=== PATIENT | male | born 1990 | race Caucasian/White ===

== ENCOUNTER 2021-01-29 09:53 | Emergency (ER) | payer OTHER, SELFPAY ==
[2021-01-29 10:08] VITALS: BP 106/63; PULSE 99; RESP 18; TEMP 37.1; O2SAT 95; BMI 29.2
[2021-01-29 10:57] LABS: COVID-19 Test Negative (Negative)
--- NOTE | 2021-01-29 12:06 | ED.GENADULT ---
HPI - General Adult General Chief complaint: General Medical <[facility] Last Filed: 01/29/21 12:08> Stated complaint: covid symptoms <[facility] Last Filed: 01/29/21 12:08> Time Seen by Provider: 01/29/21 11:09 <[facility] Last Filed: 01/29/21 12:08> Source: patient <[facility] Last Filed: 01/29/21 12:08> Mode of arrival: ambulatory <[facility] Last Filed: 01/29/21 12:08> Limitations: no limitations <[facility] Last Filed: 01/29/21 12:08> History of Present Illness HPI narrative: 30-year-old male previously healthy here with complaints of fever, diarrhea, fatigue since yesterday. All his children at home have the same symptoms. No abdominal pain, vomiting, chest pain, shortness of breath, cough, headache, neck pain <[facility] Last Filed: 01/29/21 12:08> Related Data Home medications: Previous Rx's Medication Instructions Recorded ondansetron 4 mg PO Q6H PRN #10 tab 01/29/21 <[facility] Last Filed: 01/29/21 12:08> Allergies/adverse reactions: Allergies Allergy/AdvReac Type Severity Reaction Status Date / Time No Known Allergies Allergy Unverified 05/23/20 16:26 [No Known Allergies*] <[facility] Last Filed: 01/29/21 12:08> Review of Systems Review of Systems: Yes all other systems are reviewed and are negative <[facility] Last Filed: 01/29/21 12:08> Constitutional: Constitutional: Reports no additional constitutional complaints, Denies body ache(s), Denies chills, Reports fatigue, Reports fever(s) (Subjective), Denies headache(s) and Denies weakness <[facility] Last Filed: 01/29/21 12:08> Eyes: Eyes: Reports no additional eye complaints and Denies change in vision <Jodi Cavanaugh NP - Last Filed: 01/29/21 12:08> ENT: Reports system reviewed and no additional complaints, except as documented, Denies dizziness, Denies headache(s), Denies nasal congestion, Denies nasal discharge and Denies neck pain <Jodi Cavanaugh EXTRUDER OPERATOR HELPER - Last Filed: 01/29/21 12:08> Cardiovascular: Cardiovascular: Reports no additional cardiovascular complaints, Denies chest pain, Denies leg edema and Denies dyspnea <Jodi Cavanaugh EXTRUDER OPERATOR HELPER - Last Filed: 01/29/21 12:08> Respiratory: Respiratory: Reports no additional respiratory complaints, Denies cough and Denies dyspnea <Jodi Cavanaugh NP - Last Filed: 01/29/21 12:08> Gastrointestinal: Gastrointestinal: Reports no additional gastrointestinal complaints, Denies abdominal pain, Reports diarrhea, Denies nausea and Denies vomiting <Jodi Cavanaugh NP - Last Filed: 01/29/21 12:08> Genitourinary: Genitourinary: Denies urinary incontinence <Jodi Cavanaugh EXTRUDER OPERATOR HELPER - Last Filed: 01/29/21 12:08> Musculoskeletal: Musculoskeletal: Reports no additional musculoskeletal complaints, Denies back pain, Denies arthralgias, Denies joint swelling, Denies neck pain, Denies numbness and Denies tingling <Jodi Cavanaugh EXTRUDER OPERATOR HELPER - Last Filed: 01/29/21 12:08> Integumentary/Breasts: Skin/Breast: Reports system reviewed and no additional complaints, except as docu and Denies rash <Jodi Cavanaugh EXTRUDER OPERATOR HELPER - Last Filed: 01/29/21 12:08> Neurologic: Reports system reviewed and no additional complaints, except as documented, Denies Abnormal speech present, Denies dizziness, Denies headache(s), Denies numbness, Denies tingling and Denies weakness <Jodi Cavanaugh EXTRUDER OPERATOR HELPER - Last Filed: 01/29/21 12:08> Endocrine: Endocrine: Reports fatigue <Jodi Cavanaugh NP - Last Filed: 01/29/21 12:08> PMFSH Past Medical History Attestation statement: The following information was validated with the patient. <Jodi Cavanaugh NP - Last Filed: 01/29/21 12:08> Source: old records reviewed and nursing notes reviewed <Jodi Cavanaugh NP - Last Filed: 01/29/21 12:08> Medical History: Medical History Asthma Diabetes Migraine <Jodi Cavanaugh NP - Last Filed: 01/29/21 12:08> Social History Social History: Social History Advance Directives: Yes Advance Directives Information Provided: Yes Advance Directives on File: No <Jodi Cavanaugh NP - Last Filed: 01/29/21 12:08> Physical Exam Vital Signs: Vital Signs: Last Vital Signs Temp 98.7 F 01/29/21 10:08 Pulse 99 01/29/21 10:08 Resp 18 01/29/21 10:08 BP 106/63 01/29/21 10:08 Pulse Ox 95 01/29/21 10:08 Body Mass Index 29.2 <Jodi Cavanaugh NP - Last Filed: 01/29/21 12:08> Vital Signs: Last Vital Signs Temp 98.7 F 01/29/21 10:08 Pulse 99 01/29/21 10:08 Resp 18 01/29/21 10:08 BP 106/63 01/29/21 10:08 Pulse Ox 95 01/29/21 10:08 Body Mass Index 29.2 <Chepe Garcia MD - Last Filed: 02/21/21 15:11> Const: General: cooperative, healthy appearing, comfortable and no acute distress <Jodi Cavanaugh NP - Last Filed: 01/29/21 12:08> Orientation/consciousness: patient oriented x3 <Jodi Cavanaugh NP - Last Filed: 01/29/21 12:08> Limitations: no limitations <Jodi Cavanaugh NP - Last Filed: 01/29/21 12:08> HENMT: Head: Yes normal to inspection <Jodi Cavanaugh NP - Last Filed: 01/29/21 12:08> Ears: hearing grossly normal bilaterally <Jodi Cavanaugh NP - Last Filed: 01/29/21 12:08> General nose exam: Normal external nose present <Jodi Cavanaugh NP - Last Filed: 01/29/21 12:08> Face and sinus: Yes normal facial exam <Jodi Cavanaugh NP - Last Filed: 01/29/21 12:08> Mouth: Normal oral and palatal mucosa present <Jodi Cavanaugh EXTRUDER OPERATOR HELPER - Last Filed: 01/29/21 12:08> Throat: Yes posterior oropharynx normal <Jodi Cavanaugh NP - Last Filed: 01/29/21 12:08> Eyes: General: appearance normal, both eyes and all related structures <Jodi Cavanaugh NP - Last Filed: 01/29/21 12:08> Pupils: Equal, round and reactive pupils present <Jodi Cavanaugh NP - Last Filed: 01/29/21 12:08> Neck: Neck: Yes normal visual inspection <Jodi Cavanaugh NP - Last Filed: 01/29/21 12:08> Chest: Chest palpation & inspection: normal inspection of the chest <Jodi Cavanaugh NP - Last Filed: 01/29/21 12:08> Resp: Effort & Inspection: normal respiratory effort <Jodi Cavanaugh NP - Last Filed: 01/29/21 12:08> Auscultation: clear to auscultation bilaterally <Jodi Cavanaugh NP - Last Filed: 01/29/21 12:08> Cardio: Rate: regular rate <Jodi Cavanaugh NP - Last Filed: 01/29/21 12:08> Rhythm: regular rhythm <Jodi Cavanaugh NP - Last Filed: 01/29/21 12:08> Peripheral pulses: Peripheral pulses 2+ throughout <Jodi Cavanaugh NP - Last Filed: 01/29/21 12:08> GI: Inspection: Yes normal to inspection <Jodi Cavanaugh NP - Last Filed: 01/29/21 12:08> Palpation (GI): Soft to palpation and nontender <Jodi Cavanaugh NP - Last Filed: 01/29/21 12:08> Auscultation: normal bowel sounds <Jodi Cavanaugh NP - Last Filed: 01/29/21 12:08> Back/Spine/Pelvis: Thoracic/Lumbar Spine: thoracic and lumbar spine normal to inspection <Jodi Cavanaugh NP - Last Filed: 01/29/21 12:08> Skin: General skin exam: no rashes or lesions noted <Jodi Cavanaugh NP - Last Filed: 01/29/21 12:08> Neuro: General: patient oriented x3, no focal motor deficits and normal sensation to monofilament <Jodi Cavanaugh NP - Last Filed: 01/29/21 12:08> Cranial nerves: Yes Equal, round and reactive pupils present <Jodi Cavanaugh NP - Last Filed: 01/29/21 12:08> Cognition (Neuro): normal cognition <Jodi Cavanaugh NP - Last Filed: 01/29/21 12:08> Speech: No Abnormal speech present <Jodi Cavanaugh NP - Last Filed: 01/29/21 12:08> Gait exam (Neuro): Normal gait present <Jodi Cavanaugh NP - Last Filed: 01/29/21 12:08> Motor exam (neuro): 5/5 motor strength present throughout <Jodi Cavanaugh NP - Last Filed: 01/29/21 12:08> Extrem: General: Yes normal to inspection <Jodi Cavanaugh NP - Last Filed: 01/29/21 12:08> Course Course Course Narrative: 30-year-old male here with flu-like symptoms x2 days. Children at home with same symptoms. Will check COVID swab. COVID swab negative. Well-appearing. Hemodynamically stable. Afebrile here. No abdominal pain on exam. Reviewed worrisome signs and symptoms of when to return to the emergency department. Comfortable discharge home. <Jodi Cavanaugh NP - Last Filed: 01/29/21 12:08> I have reviewed the chart <Chepe Garcia MD - Last Filed: 02/21/21 15:11> Medical Decision Making Medical Records Medical records reviewed: Yes I reviewed the patient's medical records. <Jodi Cavanaugh NP - Last Filed: 01/29/21 12:08> Lab Data Lab results reviewed: Yes I reviewed the patient's lab results. <Jodi Cavanaugh NP - Last Filed: 01/29/21 12:08> Labs: Lab Results 01/29/21 Range/Units 10:27 COVID-19 ([facility]) Negative (Negative) COVID-19 Clin Com See Note <Jodi Cavanaugh NP - Last Filed: 01/29/21 12:08> Lab Results 01/29/21 Range/Units 10:27 COVID-19 ([facility]) Negative (Negative) COVID-19 Clin Com See Note <Chepe Garcia MD - Last Filed: 02/21/21 15:11> Discharge Plan Discharge Clinical Impression: Viral syndrome <Jodi Cavanaugh NP - Last Filed: 01/29/21 12:08> Patient Disposition: Home, Self-Care <Jodi Cavanaugh NP - Last Filed: 01/29/21 12:08> Instructions: Viral Syndrome (ED) <Jodi Cavanaugh NP - Last Filed: 01/29/21 12:08> Additional Instructions: Your test today for COVID-19 was negative. You should continue to self quarantine if you are having symptoms of COVID-19 and should retest in several days. Motrin or Tylenol for pain or fever Increase fluids, rest No school until symptoms are resolved <Jodi Cavanaugh NP - Last Filed: 01/29/21 12:08> Prescriptions: New ondansetron 4 mg tablet,disintegrating 4 mg PO Q6H PRN (Reason: nausea and vomiting) Qty: 10 RF: 0 <Jodi Cavanaugh NP - Last Filed: 01/29/21 12:08> Stand Alone Forms: Work/School Release <Jodi Cavanaugh NP - Last Filed: 01/29/21 12:08> Interventions: ED Discharge Assessment Last Done: 01/29/21 12:36 <Jodi Cavanaugh NP - Last Filed: 01/29/21 12:08> Discharge Date/Time: 01/29/21 12:39 <Jodi Cavanaugh NP - Last Filed: 01/29/21 12:08> Print Language: Gambian <Jodi Cavanaugh NP - Last Filed: 01/29/21 12:08>
== END 2021-01-29 12:39 | disposition home or self-care (01) ==
PROVIDERS: Nurse Practitioner Family; Emergency Provider Emergency Medicine
DX: B34.9 Viral infection, unspecified (principal); R50.9 Fever, unspecified; Z20.822 Contact with and (suspected) exposure to COVID-19; Z79.899 Other long term (current) drug therapy
CPT/HCPCS: 36415; 87635; 99283

== ENCOUNTER 2021-08-10 23:00 | Emergency (ER) | payer MEDICAID, SELFPAY ==
[2021-08-10 23:19] VITALS: BP 139/84; PULSE 99; RESP 16; TEMP 36.2; O2SAT 97; BMI 27.3
--- NOTE | 2021-08-10 23:38 | ED.GENADULT ---
HPI - General Adult General Chief complaint: General Medical Stated complaint: flu like symptoms Time Seen by Provider: 08/10/21 23:38 Source: patient Mode of arrival: ambulatory Limitations: no limitations History of Present Illness HPI narrative: Patient comes emergency room complaining of body aches, sore throat. Patient has 2 younger children tested positive for COVID-19 2 days ago. Now his and older daughter have the same symptoms as well. Related Data Previous Rx's Medication Instructions Recorded ondansetron 4 mg disintegrating 4 mg PO Q6H PRN #10 tab 01/29/21 tablet acetaminophen 650 mg 650 mg PO Q8H PRN #30 tab 08/11/21 tablet,extended release Allergies Allergy/AdvReac Type Severity Reaction Status Date / Time No Known Allergies Allergy Verified 08/10/21 23:22 [No Known Allergies*] Review of Systems Review of Systems: Constitutional : No Weight loss, No Fever, No Chills, No Night Sweats, bleeding of fatigue and generalized malaise ENT/Mouth : No Hearing loss, No Ear Pain, No Nasal Congestion, No Sinus Pain, No Hoarseness, complaining of mild sore throat, No Rhinorrhea, No Swallowing Difficulty Eyes: No Eye Pain, No Swelling, No Redness, No Foreign Body, No Discharge, No Vision Changes Cardiovascular : No Chest Pain, No SOB, No Dyspnea on Exertion, No Orthopnea, No Edema, No Palpitations Respiratory : No Cough, No Sputum, No Wheezing, No Smoke Exposure, No Dyspnea Gastrointestinal : No Nausea, No Vomiting, No Diarrhea, No Constipation, No abdominal Pain, No Hematochezia, No Melena Genitourinary : no irregular bleeding, No Dysuria, No Urinary Frequency, No Hematuria, No Urinary Incontinence, No Urgency, No Flank Pain, No Urinary Flow Changes, No Hesitancy Musculoskeletal : No joint pain, No Myalgias, No Joint Swelling Skin : No Skin Lesions, No rash Neuro : No Weakness, No Numbness, No Paresthesias, No Loss of Consciousness, No Dizziness, No Headache Psych : No Anxiety/Panic, No Depression, No SI/HI/AH/VH, No Social Issues, Heme/Lymph: No Bruising, No Bleeding,No Lymphadenopathy Endocrine : No Polyuria, No Polydipsia, No Temperature Intolerance PMFSH Past Medical History Medical History Asthma Diabetes Migraine Social History Social History Advance Directives: No Advance Directives Information Provided: Yes Physical Exam Vital Signs: Vital Signs: Last Vital Signs Temp 97.1 F 08/10/21 23:19 Pulse 99 08/10/21 23:19 Resp 16 08/10/21 23:19 BP 139/84 08/10/21 23:19 Pulse Ox 97 08/10/21 23:19 BMI result Body Mass Index 27.3 Const: Other: Appearance: Alert. Oriented X3. No acute distress. Eyes: Pupils equal, round and reactive to light. ENT: Pharynx normal. Neck: Normal inspection. Neck supple. No lymph nodes noted. No crepitus CVS: Normal heart rate and rhythm. Pulses normal. Normal S1 and S2 Respiratory: No respiratory distress. Breath sounds normal. No Wheezing. No rales Abdomen: Soft and nontender. No rigidity. No distention. good BS x4 Skin: Skin warm and dry. Normal skin color. Normal skin turgor. Extremities: No lower extremity edema.No Lacerations. No Rash Neuro: Oriented X 3. No motor deficit. No sensory deficit. Moving all extermities. No slurred speech. Course Course Course Narrative: Patient's COVID test is negative. However, his younger kids to have in-home. It may be a false negative. Medical Decision Making Lab Data Labs: Lab Results 08/10/21 Range/Units 23:32 COVID-19 ([facility]) Negative (Negative) COVID-19 Clin Com See Note Discharge Plan Discharge Clinical Impression: Acute upper respiratory infection, Acute viral syndrome Patient Disposition: Home, Self-Care Instructions: Viral Syndrome (ED) Additional Instructions: It is very likely that you may have COVID-19. Although your test was negative, your children her positive. Please follow-up with your primary care physician tomorrow. If you have any worsening or new symptoms, please return to the emergency room or call 911 Prescriptions: New acetaminophen 650 mg tablet extended release 650 mg PO Q8H PRN (Reason: fever or pain) Qty: 30 RF: 0 No Action ondansetron 4 mg tablet,disintegrating 4 mg PO Q6H PRN (Reason: nausea and vomiting) Qty: 10 RF: 0
[2021-08-10 23:56] LABS: COVID-19 Test Negative (Negative); IDNOW Serial# 9DD0AD1C
[2021-08-11] MEDS: Ibuprofen 600 MG TABLET PO (00:47)
== END 2021-08-11 00:59 | disposition home or self-care (01) ==
PROVIDERS: Emergency Provider Emergency Medicine; PCP Internal Medicine
DX: J06.9 Acute upper respiratory infection, unspecified (principal); B34.9 Viral infection, unspecified; E11.9 Type 2 diabetes mellitus without complications; J45.909 Unspecified asthma, uncomplicated; Z20.822 Contact with and (suspected) exposure to COVID-19
CPT/HCPCS: 36415; 87635; 99283

== ENCOUNTER 2021-08-29 22:04 | Emergency (ER) | payer MEDICAID, SELFPAY ==
--- NOTE | ~2021-08-29 | XR_ITS ---
EXAMINATION: XR CHEST CLINICAL INFORMATION: Shortness of breath COMPARISON: None TECHNIQUE: Frontal view of the chest was obtained. FINDINGS: The lungs are well expanded. There is no focal consolidation, edema, or effusion. No pneumothorax. The cardiomediastinal silhouette is within normal limits. No acute osseous abnormality. XR/XR chest 1V IMPRESSION: Clear lungs.
[2021-08-30 00:25] VITALS: BP 140/70; PULSE 78; RESP 16; TEMP 36.9; O2SAT 97; BMI 28.5
--- NOTE | 2021-08-30 00:42 | ED.GENADULT ---
HPI - General Adult General Chief complaint: General Medical Stated complaint: sob,headache Time Seen by Provider: 08/30/21 00:39 Source: patient Mode of arrival: ambulatory Limitations: no limitations History of Present Illness HPI narrative: 30-year-old male with past medical history of asthma presents with body pain and cough with positive COVID-19 contacts. Patient is requested COVID-19 testing. Onset (ago): day(s) Location: chest Radiation: non-radiation Severity: mild Relieving factors: none Exacerbating factors: movement Associated symptoms: cough and headaches Treatments prior to arrival: none Related Data Previous Rx's Medication Instructions Recorded ondansetron 4 mg disintegrating 4 mg PO Q6H PRN #10 tab 01/29/21 tablet acetaminophen 650 mg 650 mg PO Q8H PRN #30 tab 08/11/21 tablet,extended release albuterol sulfate 90 mcg/actuation 2 puff INHALATION Q6H PRN #8.5 g 08/30/21 aerosol inhaler prednisone 20 mg tablet 40 mg PO DAILY 4 Days #8 tab 08/30/21 Allergies Allergy/AdvReac Type Severity Reaction Status Date / Time No Known Allergies Allergy Verified 08/10/21 23:22 [No Known Allergies*] Review of Systems Review of Systems: Constitutional: No Fever, no Chills, positive fatigue, positive Malaise ENT/Mouth: positive sore throat, positive runny nose Eyes: No Discharge Cardiovascular: No Chest Pain, No SOB Respiratory: Positive Cough, No Sputum, No Wheezing, No Smoke Exposure, No Dyspnea Gastrointestinal: No Nausea, No Vomiting, No Diarrhea Genitourinary: no irregular bleeding, No Dysuria, No Urinary Frequency, No Hematuria, No Urinary Incontinence, No Urgency, No Flank Pain, Musculoskeletal: positive Myalgia Skin: No rash Neuro: Positive Headache Yes all other systems are reviewed and are negative PMFSH Past Medical History Attestation statement: The following information was validated with the patient. Source: old records reviewed Medical History Asthma Diabetes Migraine Social History Social History Advance Directives: No Advance Directives Information Provided: Yes Physical Exam Vital Signs: Vital Signs: Last Vital Signs Temp 98.4 F 12/25/21 00:25 Pulse 94 08/30/21 01:14 Resp 16 08/30/21 01:14 BP 132/86 08/30/21 01:10 Pulse Ox 97 08/30/21 01:10 BMI result Body Mass Index 28.5 Appearance: Alert. Oriented X3. No acute distress. Eyes: Pupils equal, round and reactive to light. ENT: Pharynx normal. Moist mucous membranes. Neck: Normal inspection. Neck supple. CVS: Normal heart rate and rhythm. Pulses normal. Respiratory: No respiratory distress. Decreased air flow, inspiratory and expiratory wheezing throughout. Abdomen: Soft and nontender. Skin: Skin warm and dry. Normal skin color. Normal skin turgor. Extremities: No lower extremity edema. Gait well-balanced well coordinated. Neuro: No motor deficit. No sensory deficit. Cranial nerves 2-12 intact. Course Course Course Narrative: 30-year-old male presents with upper respiratory symptoms a history of asthma. Has had COVID-19 contacts. Patient is afebrile appears nontoxic however lung sounds have inspiratory and expiratory wheezing with poor air flow on right side. Patient has not asthma medications several months. Does smoke marijuana twice a week, was smoking in his car prior to emergency room presentation. No prior history of asthma related intubations. Order for hour long neb. IV Solu-Medrol. Lung sounds improved. Plan of care is to discharge home with prednisone, script for albuterol, and referral to pulmonology. Patient embolized understanding and agrees to care discharge Medical Decision Making Differential Diagnosis Differential Diagnosis: COVID-19, influenza, RSV, asthma exacerbation Medical Records Medical records reviewed: Yes I reviewed the patient's medical records. Lab Data Lab results reviewed: Yes I reviewed the patient's lab results. Labs: Lab Results 08/30/21 Range/Units 00:32 COVID-19 ([facility]) Negative (Negative) COVID-19 Clin Com See Note Imaging Data Chest x-ray: Attestation: I personally reviewed and interpreted this imaging study as follows: Radiologist's impression: EXAMINATION: XR CHEST CLINICAL INFORMATION: Shortness of breath COMPARISON: None TECHNIQUE: Frontal view of the chest was obtained. FINDINGS: The lungs are well expanded. There is no focal consolidation, edema, or effusion. No pneumothorax. The cardiomediastinal silhouette is within normal limits. No acute osseous abnormality. XR/XR chest 1V IMPRESSION: Clear lungs. ? Discharge Plan Discharge Clinical Impression: Acute viral syndrome Asthma exacerbation Qualifiers: Asthma severity: moderate Asthma persistence: unspecified Qualified Code(s): J45.901 - Unspecified asthma with (acute) exacerbation Patient Disposition: Home, Self-Care Instructions: Asthma (ED), Viral Syndrome (ED) Additional Instructions: You were evaluated for upper respiratory symptoms. Your COVID 19 test was negative. We treated you for asthma exacerbation. Please use albuterol inhaler 2 puffs every 4-6 hours as needed for shortness of breath. He consider using [id number] cough medications. Please follow-up pulmonology. I referred you to Dr. Akbar. Please call and request an appointment. Please take prednisone 40 mg for the next 4 days. Stop smoking. Thank you for choosing this emergency department for evaluation. Please follow-up with primary care physician as needed. Return to the emergency department for any new, concerning, or worsening symptoms. Prescriptions: New prednisone 20 mg tablet 40 mg PO DAILY 4 Days Qty: 8 RF: 0 albuterol sulfate 90 mcg/actuation HFA aerosol inhaler 2 puff inhalation Q6H PRN (Reason: shortness of breath or wheezing) Qty: 8.5 RF: 0 No Action ondansetron 4 mg tablet,disintegrating 4 mg PO Q6H PRN (Reason: nausea and vomiting) Qty: 10 RF: 0 acetaminophen 650 mg tablet extended release 650 mg PO Q8H PRN (Reason: fever or pain) Qty: 30 RF: 0 Referrals: Willie Akbar MD [Physician] - 2 days (Asthma exacerbation, poor asthma management)
[2021-08-30 01:03] LABS: COVID-19 Test Negative (Negative); IDNOW Serial# 9DD0AD1C
[2021-08-30 01:10] VITALS: BP 132/86; PULSE 93; RESP 14; O2SAT 97
[2021-08-30] MEDS: Albuterol Sulfate 90 MCG 8 GM INHALER 2 PUFF INHALE (01:11)
[2021-08-30] MEDS: methylPREDNISolone Sod Succ 125 MG/2 ML VIAL IVPUSH (01:11)
[2021-08-30] MEDS: Albuterol Sulfate (0.083%) 2.5 MG/3 ML VIAL.NEB 10 MG INHALE (01:11)
[2021-08-30 01:14] VITALS: PULSE 94; RESP 16; O2SAT 97
[2021-08-30 02:24] VITALS: BP 137/81; PULSE 116; RESP 26; O2SAT 96
== END 2021-08-30 02:28 | disposition home or self-care (01) ==
PROVIDERS: Emergency Provider Internal Medicine; PCP Internal Medicine
DX: J45.901 Unspecified asthma with (acute) exacerbation (principal); B34.9 Viral infection, unspecified; E11.9 Type 2 diabetes mellitus without complications; Z20.822 Contact with and (suspected) exposure to COVID-19
CPT/HCPCS: 36415; 71045; 87635; 94640; 94644; 99284; J2930

== ENCOUNTER 2021-09-04 21:58 | Emergency (ER) | payer MEDICAID, SELFPAY ==
--- NOTE | 2021-09-04 22:39 | PC.NURSE ---
pt not in the waiting room at this time.
[2021-09-04 22:45] VITALS: BP 138/73; PULSE 79; RESP 16; TEMP 36.8; O2SAT 96; BMI 28.5
--- NOTE | 2021-09-05 00:18 | ED.SKABFB ---
HPI - Skin/Abscess/Foreign Bdy General Chief complaint: Skin/Abscess/Foreign Body Stated complaint: Abscess Time Seen by Provider: 09/05/21 00:06 Source: patient History of Present Illness HPI narrative: This is a 30-year-old male who about 5-6 days ago noted soreness and swelling inside his left nostril. Patient noted some redness on the outside his nose. He has tried to take a sewing needle and drain the swollen area from inside his nose, and has seen some pus drainage. He denies any fever. Came in tonight because he wanted to see if the abscess could be drained more definitively. He denies any headache. He notes he does have history of asthma and diabetes Related Data Previous Rx's Medication Instructions Recorded ondansetron 4 mg disintegrating 4 mg PO Q6H PRN #10 tab 01/29/21 tablet acetaminophen 650 mg 650 mg PO Q8H PRN #30 tab 08/11/21 tablet,extended release albuterol sulfate 90 mcg/actuation 2 puff INHALATION Q6H PRN #8.5 g 08/30/21 aerosol inhaler prednisone 20 mg tablet 40 mg PO DAILY 4 Days #8 tab 08/30/21 sulfamethoxazole 800 1 tab PO BID #14 tab 09/05/21 mg-trimethoprim 160 mg tablet (Bactrim DS) Allergies Allergy/AdvReac Type Severity Reaction Status Date / Time No Known Allergies Allergy Verified 08/10/21 23:22 [No Known Allergies*] Review of Systems Constitutional: Constitutional: Denies chills and Denies fever(s) Eyes: Eyes: Reports no additional eye complaints ENT: Comments: swelling and redness to left side of nose left internal nare Cardiovascular: Cardiovascular: Reports no additional cardiovascular complaints Respiratory: Respiratory: Reports no additional respiratory complaints Neurologic: Denies Sensory deficit (Neuro) [facility] [place] Past Medical History Medical History Asthma Diabetes Migraine Social History Social History Advance Directives: No Physical Exam Vital Signs: Vital Signs: Last Vital Signs Temp 98.3 F 09/04/21 22:45 Pulse 79 09/04/21 22:45 Resp 16 09/04/21 22:45 BP 138/73 09/04/21 22:45 Pulse Ox 96 09/04/21 22:45 BMI result Body Mass Index 28.5 Const: General: cooperative, no acute distress and alert Orientation/consciousness: patient oriented x3 HENMT: Other: left nostril with erythema and mild swelling externally, and to the point of the nose. Inside the nostril there is focal swelling on the lateral aspect, with pus draining. No generalized facial swelling or facial cellulitis Head: Yes normal to inspection Eyes: General: appearance normal, both eyes and all related structures Eyelids: Yes eyelids normal Conjunctivae: conjunctivae normal Pupils: Equal, round and reactive pupils present Neck: Neck: Yes normal visual inspection and Yes supple Chest: Chest palpation & inspection: normal inspection of the chest Resp: Effort & Inspection: normal respiratory effort Auscultation: clear to auscultation bilaterally Cardio: Rate: regular rate Rhythm: regular rhythm Heart sounds: S1 normal heart sound present, S2 normal heart sound present, no gallops, no murmurs and no rubs GI: Palpation (GI): Soft to palpation, nontender and Other GI palpation findings present (Non-distended) Auscultation: normal bowel sounds Skin: General skin exam: no rashes or lesions noted Neuro: General: patient oriented x3, no focal motor deficits and CN's II-XI intact bilaterally Cranial nerves: Yes Equal, round and reactive pupils present Cognition (Neuro): normal cognition Motor exam (neuro): 5/5 motor strength present throughout Sensory Exam: No Sensory deficit (Neuro) Extrem: General: Yes normal to inspection and Yes no pedal edema Psych: Appearance: grossly normal Affect: normal affect MDM - Skin/Abscess/Foreign Bdy MDM Narrative Medical decision making narrative: patient with an abscessed inside his left nostril which is already draining. The abscess was opened further with a single Grady of an 11 blade, though the patient did tolerate more than a brief poke with a scalpel. Further pus was expressed. Given that this abscess has already been draining, do not believe an extensive painful procedure to try to open it up further as necessary. Patient is being started on Bactrim and is advised to use warm compresses, gently tried a squeeze out additional pus 3 or 4 times a day Discharge Plan Discharge Clinical Impression: Abscess of external nose Patient Disposition: Home, Self-Care Instructions: Abscess (ED) Additional Instructions: apply warm compresses for 15 minute to the left side of the nose every 3-4 hours while awake, and gently tried to apply pressure to expressed any pus from the abscess cavity. Take antibiotics as prescribed. Use ibuprofen for pain. Return for any worsened symptoms such as increased redness or swelling of the nose, fever Prescriptions: New sulfamethoxazole-trimethoprim [Bactrim DS] 800-160 mg tablet 1 tab PO BID Qty: 14 RF: 0 No Action ondansetron 4 mg tablet,disintegrating 4 mg PO Q6H PRN (Reason: nausea and vomiting) Qty: 10 RF: 0 acetaminophen 650 mg tablet extended release 650 mg PO Q8H PRN (Reason: fever or pain) Qty: 30 RF: 0 prednisone 20 mg tablet 40 mg PO DAILY 4 Days Qty: 8 RF: 0 albuterol sulfate 90 mcg/actuation HFA aerosol inhaler 2 puff inhalation Q6H PRN (Reason: shortness of breath or wheezing) Qty: 8.5 RF: 0
[2021-09-05] MEDS: Sulfamethox/Trimeth 800/160 TABLET 1 TAB PO (00:57)
[2021-09-05] MEDS: Ibuprofen 600 MG TABLET PO (00:57)
== END 2021-09-05 01:00 | disposition home or self-care (01) ==
PROVIDERS: Emergency Provider Emergency Medicine; PCP Internal Medicine
DX: J34.0 Abscess, furuncle and carbuncle of nose (principal); Z79.899 Other long term (current) drug therapy
CPT/HCPCS: 10060; 99283

== ENCOUNTER 2021-09-17 12:55 | Emergency (ER) | payer MEDICAID, SELFPAY ==
--- NOTE | ~2021-09-17 | US_ITS ---
EXAMINATION: US VENOUS ULTRASOUND WITH DOPPLER LOWER EXTREMITY, LEFT CLINICAL INFORMATION: Induration with question of abscess versus DVT COMPARISON: None TECHNIQUE: Ultrasound of the deep veins is performed from the hip to the calf with compression sonography and color and pulse Doppler assessment. Spectral analysis with color-flow imaging is performed. FINDINGS: There is normal venous compression and respiratory variation and augmented flow. The visualized common femoral vein, superficial femoral vein, profunda femoral vein, popliteal vein, and the trifurcation region shows no evidence of deep venous thrombosis. There is no significant popliteal fossa cyst. Of note, in the calf, there is a complex subcutaneous mass/complex fluid collection measuring 1.7 x 0.7 x 1.8 cm which could represent a small abscess. This is not a typical location of Church's cyst. Multiple prominent normal-appearing left groin nodes are present with large fatty jf. If the patient's symptoms persist and DVT is still suspected, followup ultrasound in 5 days 7 days might be of value to exclude proximal propagation from a non-visualized calf vein. US/US venous duplex LE LT IMPRESSION: No DVT demonstrated in the left lower extremity. Small subcutaneous probable abscess.
[2021-09-17 13:33] VITALS: BP 124/78; PULSE 90; RESP 19; TEMP 36.6; O2SAT 97; BMI 28.5
--- NOTE | 2021-09-17 18:41 | ED.GENADULT ---
HPI - General Adult General Chief complaint: Wound/Laceration Stated complaint: L leg abscess Time Seen by Provider: 09/17/21 18:21 Source: patient Mode of arrival: ambulatory Limitations: no limitations History of Present Illness HPI narrative: Patient presents to the ED for left calf pain with redness that he noticed this morning. patient states he went to sleep last night and during sleep he felt a sting on his left calf and thinks it maybe the point of a goose feather of his sofa. Patient area of calf is red with induration and is painful Related Data Previous Rx's Medication Instructions Recorded ondansetron 4 mg disintegrating 4 mg PO Q6H PRN #10 tab 01/29/21 tablet acetaminophen 650 mg 650 mg PO Q8H PRN #30 tab 08/11/21 tablet,extended release albuterol sulfate 90 mcg/actuation 2 puff INHALATION Q6H PRN #8.5 g 08/30/21 aerosol inhaler prednisone 20 mg tablet 40 mg PO DAILY 4 Days #8 tab 08/30/21 sulfamethoxazole 800 1 tab PO BID #14 tab 09/05/21 mg-trimethoprim 160 mg tablet (Bactrim DS) cephalexin 500 mg capsule 500 mg PO QID 7 Days #28 cap 09/17/21 doxycycline hyclate 100 mg capsule 100 mg PO BID 7 Days #14 cap 09/17/21 naproxen 500 mg tablet 500 mg PO BID PRN 10 Days #20 tab 09/17/21 Allergies Allergy/AdvReac Type Severity Reaction Status Date / Time No Known Allergies Allergy Verified 08/10/21 23:22 [No Known Allergies*] Review of Systems Review of Systems: left calf pain with redness/pain Yes all other systems are reviewed and are negative PMFSH Past Medical History Medical History Asthma Diabetes Migraine Social History Social History Advance Directives: No Advance Directives Information Provided: No Physical Exam Vital Signs: Vital Signs: Last Vital Signs Temp 98 F 09/17/21 13:33 Pulse 90 09/17/21 13:33 Resp 19 09/17/21 13:33 BP 124/78 09/17/21 13:33 Pulse Ox 97 09/17/21 13:33 BMI result Body Mass Index 28.5 Const: General: cooperative, healthy appearing, comfortable, no acute distress, well developed, alert, awake and Physically active Orientation/consciousness: patient oriented x3 HENMT: Head: Yes normal to inspection, Yes No palpable skull fracture present, Yes normocephalic, Yes atraumatic and Yes abrasion Eyes: General: appearance normal, both eyes and all related structures Neck: Neck: Yes normal visual inspection, Yes full ROM, Yes no lymphadenopathy, Yes no meningeal signs, Yes trachea midline, Yes supple, No anterior neck swelling and No tender Chest: Chest palpation & inspection: normal inspection of the chest and normal palpation of entire chest wall Resp: Effort & Inspection: normal respiratory effort and able to speak in complete sentences Auscultation: clear to auscultation bilaterally Cardio: Jugular venous distension: no JVD Heart sounds: S1 normal heart sound present and S2 normal heart sound present GI: Inspection: Yes normal to inspection and No abdominal wall ecchymosis Palpation (GI): Soft to palpation, not firm, nontender, no guarding and not rigid : General: No CVA tenderness and Yes no CVA tenderness Back/Spine/Pelvis: Back: no CVA tenderness, No CVA tenderness and No back tenderness Skin: Other: celllulitis Neuro: General: patient oriented x3, gait normal, no meningeal signs and CN's II-XI intact bilaterally Cranial nerves: Yes CN's II-XII intact bilaterally Extrem: Other: Pedal pulses/popliteal pulses intact. Negative for red streaks. Motor/neuro/vascular exam of lower extremity intact. Psych: Appearance: grossly normal, well kempt and not disheveled Course Course Course Narrative: Bedside ultrasound negative for any pus collection and more shows cobblestone for cellulitis, but will order of ultrasound to rule out DVT and abscess. Reevaluation(s) Reevaluation #1: Sign out to STEPHANIE Damon. Will prepare discharge papers with antibiotics Time: 19:10 Medical Decision Making MDM Narrative Medical decision making narrative: Cellulitis Discharge Plan Discharge Clinical Impression: Cellulitis Patient Disposition: Home, Self-Care Instructions: Cellulitis (ED), Warm Compress or Soak (ED) Additional Instructions: Regrese al servicio de urgencias si empeora la hinchaz?n, el enrojecimiento, la secreci?n de pus, el dolor, la elodia amie, la decoloraci?n michael azulada de los dedos de los pies, la fiebre, los escalofr?os, el dolor tor?cico, la dificultad para respirar o cualquier otro s?ntoma preocupante. Por favor, demetrio un seguimiento con el proveedor de atenci?n primaria Prescriptions: New cephalexin 500 mg capsule 500 mg PO QID 7 Days Qty: 28 RF: 0 doxycycline hyclate 100 mg capsule 100 mg PO BID 7 Days Qty: 14 RF: 0 naproxen 500 mg tablet 500 mg PO BID PRN (Reason: pain) 10 Days Qty: 20 RF: 0 No Action ondansetron 4 mg tablet,disintegrating 4 mg PO Q6H PRN (Reason: nausea and vomiting) Qty: 10 RF: 0 acetaminophen 650 mg tablet extended release 650 mg PO Q8H PRN (Reason: fever or pain) Qty: 30 RF: 0 prednisone 20 mg tablet 40 mg PO DAILY 4 Days Qty: 8 RF: 0 albuterol sulfate 90 mcg/actuation HFA aerosol inhaler 2 puff inhalation Q6H PRN (Reason: shortness of breath or wheezing) Qty: 8.5 RF: 0 sulfamethoxazole-trimethoprim [Bactrim DS] 800-160 mg tablet 1 tab PO BID Qty: 14 RF: 0 Stand Alone Forms: Work/School Release Print Language: Micronesian
[2021-09-17] MEDS: Ibuprofen 800 MG TABLET PO (18:59)
== END 2021-09-17 21:38 | disposition home or self-care (01) ==
PROVIDERS: Emergency Provider Emergency Medicine; PCP Internal Medicine
DX: L03.116 Cellulitis of left lower limb (principal); M79.662 Pain in left lower leg; E11.9 Type 2 diabetes mellitus without complications
CPT/HCPCS: 93971; 99284

== ENCOUNTER 2021-10-24 07:48 | Outpatient (REF) | payer OTHER, SELFPAY ==
[2021-10-24 08:09] LABS: MANUAL DIFF FLAG NO
[2021-10-24 08:39] LABS: Basophils Percent Auto 0.3 % (0-2); Eosinophils Absolute Auto 0.1 X10*3/uL (0.0-0.4); Eosinophils Percent Auto 1.2 % (0-4); Hematocrit 51.4 % (42.0-52.0); Hemoglobin 17.9 g/dl (14.0-18.0); Imm Gran Abs Auto 0.07 X10*3/uL (0.00-0.03); Imm Gran Pct Auto 0.6 % (0.0-0.4); Lymphocytes Absolute Auto 1.5 X10*3/uL (1.2-4.9); Mean Corpuscular HGB Conc 34.8 g/dl (31.0-36.0); Mean Corpuscular Hemoglobin 30.9 pg (27.0-33.0); Mean Corpuscular Volume 88.6 fL (80.0-98.0); Mean Platelet Volume 11.3 fL (9.4-12.4); Monocytes Absolute Auto 1.1 X10*3/uL (0.1-1.2); Monocytes Percent Auto 10.1 % (2-11); Neutrophils Absolute Auto 8.1 x10*3/uL (2.0-8.3); Neutrophils Percent Auto 73.8 % (45-73); Platelet Count 136 X10*3/uL (160-400); Red Cell Distribution Width 11.9 % (11.0-16.0); White Blood Count 10.9 X10*3/uL (4.8-10.8)
[2021-10-24 09:22] LABS: Syphilis Screen Nonreactive (Nonreactive)
[2021-10-24 09:26] LABS: HBS Num1 6.63 mIU/mL (0-7.99); HBc Num1 0.05 S/CO (0.00-0.79); HIV AB/AG Nonreactive (Nonreactive); HIV Num 1 0.09 S/CO (0.00-0.99); Hepatitis A Antibody IgM 0.49 Index (0-0.79); Hepatitis B Core Antibody Nonreactive (Nonreactive); ~HepC Num1 0.05 S/CO (0.00-0.79); ~Hepatitis A Antibody IgM Nonreactive (Nonreactive); ~Hepatitis B Surface Antibody NONREACTIVE (Nonreactive); ~Hepatitis C Antibody Nonreactive (Nonreactive)
[2021-10-24 09:29] LABS: HBsAGNum1 0.23 S/CO (0.00-0.99); Hepatitis B Surface Antigen Negative (Negative)
[2021-10-24 09:32] LABS: Alanine Aminotransferase 22 U/L (0-40); Albumin Level 4.3 g/dL (3.5-5.0); Alkaline Phosphatase 136 U/L (39-117); Anion Gap 13 (12-20); Aspartate Amino Transferase 11 U/L (5-37); Bilirubin Total 0.5 mg/dL (0.0-1.0); Blood Urea Nitrogen 12 mg/dL (9-16); Calcium 9.4 mg/dL (8.4-10.2); Carbon Dioxide 22 mmol/L (22-29); Chloride 100 mmol/L (96-108); Cholesterol 184 mg/dL; Estimated Glomerular Filt Rate > 60; Glucose Fasting 373 mg/dL (60-99); HDL Cholesterol 32 mg/dL; Potassium 4.3 mmol/L (3.3-5.1); Sodium 131 mmol/L (135-145); Total Protein 7.2 g/dL (6.5-8.0); Triglycerides 606 mg/dL
[2021-10-24 09:58] LABS: Microalbum/Creatinine Ratio Ur 147.5 ug/mg cr
[2021-10-28 21:10] LABS: Glutamic acid decarboxylase Ab <5 IU/mL (<5)
[2021-11-01 20:32] LABS: Insulin Auto Antibody <0.4 U/mL (<0.4)
== END 2021-10-24 07:49 | disposition home or self-care (01) ==
LOC: HO.LAB 07:48
PROVIDERS: PCP Internal Medicine; Visit Provider Internal Medicine
DX: Z11.4 Encounter for screening for human immunodeficiency virus [HIV] (principal); Z11.3 Encounter for screening for infections with a predominantly sexual mode of transmission; E11.9 Type 2 diabetes mellitus without complications; E78.5 Hyperlipidemia, unspecified; D64.9 Anemia, unspecified; G43.909 Migraine, unspecified, not intractable, without status migrainosus
CPT/HCPCS: 36415; 80053; 80061; 82043; 85025; 86337; 86341; 86704; 86706; 86709; 86780; 86803; 87340; 87389

== ENCOUNTER 2021-10-26 02:59 | Inpatient (IN) | payer OTHER, SELFPAY ==
--- NOTE | ~2021-10-26 | CT_ITS ---
EXAMINATION: CT ABDOMEN AND PELVIS WITH CONTRAST CLINICAL INFORMATION: Left lower quadrant abdominal pain COMPARISON: None TECHNIQUE: Multidetector volumetric images were obtained from the superior aspect of the liver through the pubic symphysis following administration 85 mL of Omnipaque 350 intravenous contrast. Sagittal and coronal reformatted images were obtained on the technologist's workstation. Oral contrast: No This CT examination was performed using dose optimization techniques as appropriate, variously including the following: *Automated exposure control *Adjustment of mA and/or kV according to patient size (this includes techniques or standardized protocols for targeted exams where dose is matched to indication/reason for exam; i.e. extremities or head) *Use of iterative reconstruction technique DLP: 555 mGy-cm FINDINGS: LUNG BASES: The visualized lung bases are unremarkable. LIVER, GALLBLADDER, AND BILIARY TREE: The liver is normal in size, shape, and attenuation. No focal hepatic lesion or biliary ductal dilatation is present. Gallbladder unremarkable. PANCREAS: Unremarkable. SPLEEN: Unremarkable. ADRENAL GLANDS: Unremarkable. KIDNEYS AND URETERS: The kidneys are normal in size, shape, and attenuation. No hydronephrosis, hydroureter, or calculi seen. No perinephric stranding. BLADDER: Unremarkable. GASTROINTESTINAL TRACT: Numerous loops of mildly dilated small bowel throughout the abdomen, with some loops showing inspissation of succus entericus. There is a gradual transition to normal caliber which occurs in the left lower quadrant, as seen on coronal images 35-42 and axial image 61 of 99. Mild scattered areas of mesenteric fat stranding/fluid. Stomach unremarkable. Normal colon. Normal appendix. ABDOMINAL WALL: No significant hernia is appreciated. LYMPH NODES: Normal. VASCULAR: Patent. PELVIC VISCERA: Prostate and seminal vesicles unremarkable. Small pelvic free fluid. OSSEOUS STRUCTURES: No acute or suspicious osseous abnormalities. CT/CT abdomen pelvis w con IMPRESSION: * Multiple mildly dilated loops of small bowel present throughout the abdomen, with a relatively gradual transition to normal caliber within the left lower quadrant. Findings are more suggestive of an ileus, perhaps related to an enteritis, rather than a mechanical small bowel obstruction. * Small pelvic free fluid, and minimal fluid scattered throughout the mesentery presumably reactive. Fleischner guidelines were followed.
[2021-10-26 03:03] VITALS: BP 137/91; PULSE 114; RESP 20; TEMP 36.4; O2SAT 97; BMI 27.8
[2021-10-26 04:59] VITALS: BP 127/86; PULSE 104; RESP 16; TEMP 37; O2SAT 96
--- NOTE | 2021-10-26 05:04 | ED.ABDPAIN ---
HPI - Abdominal Pain General Chief Complaint: Abdominal Pain Stated Complaint: abd pain Time Seen by Provider: 10/26/21 03:49 Source: patient Mode of arrival: ambulatory History of Present Illness HPI narrative: 30-year-old male with history of diabetes and reports 2 days of left-sided abdominal pain, crampy in nature there is been associated with multiple episodes of nonbloody diarrhea in patient states he is continued to pass flatus. He denies any nausea, vomiting, fever, chills, urinary symptoms. He denies any history of intra-abdominal surgeries or renal colic. Related Data Previous Rx's Medication Instructions Recorded albuterol sulfate 90 mcg/actuation 1 puff INHALATION QID PRN 30 Days 10/22/21 aerosol inhaler (ProAir HFA) #6.7 g blood sugar diagnostic (FreeStyle #50 ea 10/22/21 Lite Strips) blood-glucose meter (FreeStyle #1 ea 10/22/21 Lite Meter) escitalopram oxalate 10 mg tablet 10 mg PO DAILY 90 Days #90 tab 10/22/21 lancets 28 gauge (FreeStyle #100 ea 10/22/21 Lancets) sumatriptan succinate 25 mg tablet 25 mg PO Q2-4H PRN 30 Days #9 tab 10/22/21 insulin glargine 100 unit/mL 20 unit (0.2 mL) SUBCUT DAILY 90 10/24/21 subcutaneous solution (Lantus Days #18 ml U-100 Insulin) insulin syringe-needle U-100 0.5 #100 ea 10/24/21 mL 31 gauge x 5/16 (BD Insulin Syringe Ultra-Fine) Allergies Allergy/AdvReac Type Severity Reaction Status Date / Time No Known Allergies Allergy Verified 10/22/21 14:53 [No Known Allergies*] Review of Systems Review of Systems Pertinent positives and negatives as stated in HPI 10 point review of systems is otherwise negative. [facility] Past Medical History Source: nursing notes reviewed Medical History Asthma Diabetes VIDAL (generalized anxiety disorder) Insomnia Migraine Mild recurrent major depression Overweight (BMI 25.0-29.9) Screen for STD (sexually transmitted disease) Surgical History History of tooth extraction Family History Family History Mother No problems noted. Father Diabetes Social History Social History Housing: Other Alcohol intake: never Patient Tobacco Use Status: Current everyday Tobacco user Tobacco use type: Cigarette Cigarettes Per Day: 8 e-Cigarette/Vaping Use: Never Used Second Hand Smoke Exposure: No Advance Directives: No Advance Directives Information Provided: Yes service: No Current occupational status: employed Current occupational exposures/hazards: No Physical Exam ED Vital Signs: Vital Signs - 24 hr 10/26/21 03:03 10/26/21 04:59 10/26/21 07:02 Temperature 97.6 F 98.6 F 98.6 F Pulse Rate 114 H 104 H 94 Respiratory Rate 20 16 16 Blood Pressure 137/91 H 127/86 120/76 Pulse Oximetry 97 96 95 BMI result Body Mass Index 27.8 VITAL SIGNS: Reviewed. GENERAL: Well developed, well nourished, in no acute distress. HEAD: Normocephalic/atraumatic EYES: PERRLA, EOMI OROPHARYNX: no oral lesions noted, posterior pharynx LUNGS: Normal breath sounds. No adventitious sounds or accessory muscle use. SpO2<97> CARDIOVASCULAR: Regular rate and rhythm without noted murmurs ABDOMEN: Soft, tenderness to left lower quadrant without rebound, mild distended with bowel sounds. MUSCULOSKELETAL: No tenderness, deformities, or effusions noted on gross inspection. EXTREMITIES: No cyanosis, clubbing or edema. SKIN: Inspection of the skin reveals no rashes NEUROLOGIC: Alert and oriented x 4. Strength and sensation to light touch were grossly intact x 4. Course Course Course Narrative: 30-year-old male with history and clinical presentation suggestive of possible diverticulitis or colitis although patient has no history of antibiotic use and less likely felt to be renal colic/SBO. Review of all investigations consistent with ileus likely secondary to enteritis. Patient does have noted hyperglycemia, has been treated with IV fluids as well as pain medication and antiemetic. This case was discussed with inpatient hospitalist who accepts admission. MDM - Abdominal Pain Lab Data Result diagrams: 10/26/21 05:10 10/26/21 05:10 Labs: Lab Results 10/26/21 10/26/21 10/26/21 Range/Units 05:10 05:10 05:10 WBC 5.4 (4.8-10.8) X10*3/uL RBC 5.99 H (4.60-5.80) X10*6/uL Hgb 18.2 H (14.0-18.0) g/dl Hct 52.6 H (42.0-52.0) % MCV 87.8 (80.0-98.0) fL MCH 30.4 (27.0-33.0) pg MCHC 34.6 (31.0-36.0) g/dl RDW 11.9 (11.0-16.0) % Plt Count 128 L (160-400) X10*3/uL MPV 10.8 (9.4-12.4) fL Immature Gran % (Auto) 0.4 (0.0-0.4) % Neut % (Auto) 68.4 (45-73) % Lymph % (Auto) 15.9 L (20-40) % [place] % (Auto) 12.8 H (2-11) % Eos % (Auto) 2.1 (0-4) % Baso % (Auto) 0.4 (0-2) % Lymph # (Auto) 1.7 (1.2-4.9) X10*3/uL [place] # (Auto) 1.4 H (0.1-1.2) X10*3/uL Eos # (Auto) 0.2 (0.0-0.4) X10*3/uL Baso # (Auto) 0.0 (0.0-0.2) X10*3/uL Abs Immat Gran (auto) 0.04 H (0.00-0.03) X10*3/uL Absolute Neuts (auto) 7.3 (2.0-8.3) x10*3/uL Absolute Nucleated RBC 0.000 (0.0-0.012) X10*3/uL Nucleated RBC % (auto) 0.0 (0.0-0.2) /100WBC Sodium 131 L (135-145) mmol/L Potassium 4.0 (3.3-5.1) mmol/L Chloride 100 (96-108) mmol/L Carbon Dioxide 22 (22-29) mmol/L Anion Gap 13 (12-20) BUN 13 (9-16) mg/dL Creatinine 0.83 (0.5-1.4) mg/dL Estim Creat Clear Calc 134.2 Estimated GFR > 60 Random Glucose 347 H (60-115) mg/dL Lactic Acid 0.9 (0.5-2.0) mmol/L Calcium 9.3 (8.4-10.2) mg/dL Total Bilirubin 0.7 (0.0-1.0) mg/dL AST 12 (5-37) U/L ALT 20 (0-40) U/L Alkaline Phosphatase 120 H (39-117) U/L Total Protein 6.8 (6.5-8.0) g/dL Albumin 4.2 (3.5-5.0) g/dL Lipase 23 (8-78) U/L Acetone, Qual Negative (Negative) Discharge Plan Discharge Clinical Impression: Diabetes, Hyperglycemia, Ileus, Enteritis Patient Disposition: Admitted As Inpatient
[2021-10-26 05:17] LABS: Mean Corpuscular Volume 87.8 fL (80.0-98.0); PLT CLUMP 1; Red Cell Distribution Width 11.9 % (11.0-16.0); SCAN SMEAR FLAG 1
[2021-10-26 05:19] LABS: Basophils Percent Auto 0.4 % (0-2); Eosinophils Absolute Auto 0.2 X10*3/uL (0.0-0.4); Eosinophils Percent Auto 2.1 % (0-4); Hematocrit 52.6 % (42.0-52.0); Hemoglobin 18.2 g/dl (14.0-18.0); Imm Gran Abs Auto 0.04 X10*3/uL (0.00-0.03); Imm Gran Pct Auto 0.4 % (0.0-0.4); Lymphocytes Absolute Auto 1.7 X10*3/uL (1.2-4.9); Lymphocytes Percent Auto 15.9 % (20-40); MANUAL DIFF FLAG NO; Mean Corpuscular HGB Conc 34.6 g/dl (31.0-36.0); Mean Corpuscular Hemoglobin 30.4 pg (27.0-33.0); Mean Platelet Volume 10.8 fL (9.4-12.4); Monocytes Absolute Auto 1.4 X10*3/uL (0.1-1.2); Monocytes Percent Auto 12.8 % (2-11); Neutrophils Absolute Auto 7.3 x10*3/uL (2.0-8.3); Neutrophils Percent Auto 68.4 % (45-73); Platelet Count 128 X10*3/uL (160-400); Red Blood Count 5.99 X10*6/uL (4.60-5.80); White Blood Count 5.4 X10*3/uL (4.8-10.8)
[2021-10-26 05:25] LABS: Acetone, serum QL Negative (Negative)
[2021-10-26 05:27] LABS: Lactic Acid 0.9 mmol/L (0.5-2.0)
[2021-10-26 05:33] LABS: Alanine Aminotransferase 20 U/L (0-40); Albumin Level 4.2 g/dL (3.5-5.0); Alkaline Phosphatase 120 U/L (39-117); Anion Gap 13 (12-20); Aspartate Amino Transferase 12 U/L (5-37); Bilirubin Total 0.7 mg/dL (0.0-1.0); Blood Urea Nitrogen 13 mg/dL (9-16); Calcium 9.3 mg/dL (8.4-10.2); Carbon Dioxide 22 mmol/L (22-29); Chloride 100 mmol/L (96-108); Creatinine Clr Calc Pharmacy 134.2; Estimated Glomerular Filt Rate > 60; Glucose Random 347 mg/dL (60-115); Lipase 23 U/L (8-78); Sodium 131 mmol/L (135-145); Total Protein 6.8 g/dL (6.5-8.0)
[2021-10-26] MEDS: iohexoL 350 MG/ML 100 ML INFUS..BTL 85 ML IV (06:10)
[2021-10-26] MEDS: Ketorolac Tromethamine 30 MG/ML VIAL 15 MG IVPUSH (06:34)
[2021-10-26] MEDS: 0.9 % Sodium Chloride 1,000 ML 999 ML IV (06:36)
[2021-10-26 07:02] VITALS: BP 120/76; PULSE 94; RESP 16; TEMP 37; O2SAT 95
[2021-10-26] MEDS: ondansetron HCL 4 MG/2 ML VIAL IVPUSH (07:20)
[2021-10-26 07:22] LABS: Glucose, Whole Blood 278 mg/dL (60-115)
--- NOTE | 2021-10-26 07:42 | P.HPHOSP_ITS ---
History of Present Illness Date of Service: 10/26/21 Chief Complaint: Abdominal pain 30 year old man presenting with abdominal pain and diarrhea over the last 2 days. He denied any recent travel, improperly cooked foods, nausea, vomiting, fevers, chills. He reported cramping with non bloody diarrhea. He has a history of diabetes, no recent antibiotic use. Abdominal ct showed findings suggestive of an ileus. No fever or leukocytosis noted. In the ED he was given IV fluids, toradol, zofran. He will be admitted for further management of abdominal pain and ileus. Review of Systems Review of Systems: Denies any recent fever chills or decrease in appetite respiratory denies any shortness of breath coverage production cardiovascular denied chest pain gastrointestinal See HPI genitourinary denies any dysuria frequency or hematuria musculoskeletal denies any joint pain or swelling neuropsych denies any weakness or seizures all other systems reviewed are negative COUNT INCLUDES THE [facility] Medical History Asthma Diabetes VIDAL (generalized anxiety disorder) Insomnia Migraine Mild recurrent major depression Overweight (BMI 25.0-29.9) Screen for STD (sexually transmitted disease) Family History Mother No problems noted. Father Diabetes Surgical History History of tooth extraction Social History Housing: Other Alcohol intake: never Patient Tobacco Use Status: Current everyday Tobacco user Tobacco use type: Cigarette Cigarettes Per Day: 8 e-Cigarette/Vaping Use: Never Used Second Hand Smoke Exposure: No Advance Directives: No Advance Directives Information Provided: Yes service: No Current occupational status: employed Current occupational exposures/hazards: No Meds Allergies Allergy/AdvReac Type Severity Reaction Status Date / Time No Known Allergies Allergy Verified 10/22/21 14:53 [No Known Allergies*] Active Medications: Current Medications Dextrose (Dextrose 50 % 25 Gm/50 Ml Syringe) 25 gm IVPUSH Q15M PRN; Protocol PRN Reason: per Hypoglycemia Standing Ord. Glucose (Glucose Gel 15 Gm Gel..Gram.) 15 gm PO Q15M PRN; Protocol PRN Reason: per Hypoglycemia Standing Ord. Dextrose/Sodium Chloride (D51/2ns) 1,000 mls @ 125 mls/hr IVCONT .Q8H [facility] Insulin Human Lispro (Insulin Lispro 100 Unit/Ml 3 Ml Vial) 0 unit SUBCUT QIDACHS RANDELL; Protocol Pharmacy Consult (Consult Rx Perform Med Rec) 1 each MISCELLANE ONCE PRN PRN Reason: Consult order Home Medications Medication Instructions Recorded Confirmed Last Taken Type sumatriptan succinate 25 mg tablet 25 mg PO Q2H PRN 10/26/21 10/26/21 Unknown History Physical Exam Vital Signs and Narrative: Vital Signs: Last Vital Signs Temp 98.6 F 10/26/21 07:02 Pulse 94 10/26/21 07:02 Resp 16 10/26/21 07:02 BP 120/76 10/26/21 07:02 Pulse Ox 95 10/26/21 07:02 BMI result Body Mass Index 27.8 Appearing in no acute distress head is normocephalic atraumatic eyes pupils are PERRLA sclera is anicteric mouth throat mucous membranes are intact and moist neck is supple no lymphadenopathy, no JVD noted lung sounds are clear to auscultation heart regular rate rhythm, clear S1, S2 positive bowel sounds, abdomen is soft, nontender neuro patient is alert x3, no focal deficits Results Labs CBC and Chem 7: 10/26/21 05:10 10/26/21 05:10 Labs: Laboratory Results - last 24 hr 10/26/21 10/26/21 10/26/21 05:10 05:10 05:10 MCV 87.8 MCH 30.4 MCHC 34.6 RDW 11.9 Plt Count 128 L MPV 10.8 Immature Gran % (Auto) 0.4 Neut % (Auto) 68.4 Lymph % (Auto) 15.9 L [place] % (Auto) 12.8 H Eos % (Auto) 2.1 Baso % (Auto) 0.4 Lymph # (Auto) 1.7 [place] # (Auto) 1.4 H Eos # (Auto) 0.2 Baso # (Auto) 0.0 Abs Immat Gran (auto) 0.04 H Absolute Neuts (auto) 7.3 Absolute Nucleated RBC 0.000 Nucleated RBC % (auto) 0.0 Anion Gap 13 Estim Creat Clear Calc 134.2 Estimated GFR > 60 POC Glucose Random Glucose 347 H Lactic Acid 0.9 Calcium 9.3 Total Bilirubin 0.7 AST 12 ALT 20 Alkaline Phosphatase 120 H Total Protein 6.8 Albumin 4.2 Lipase 23 Acetone, Qual Negative 10/26/21 06:59 MCV MCH MCHC RDW Plt Count MPV Immature Gran % (Auto) Neut % (Auto) Lymph % (Auto) [place] % (Auto) Eos % (Auto) Baso % (Auto) Lymph # (Auto) [place] # (Auto) Eos # (Auto) Baso # (Auto) Abs Immat Gran (auto) Absolute Neuts (auto) Absolute Nucleated RBC Nucleated RBC % (auto) Anion Gap Estim Creat Clear Calc Estimated GFR POC Glucose 278 H Random Glucose Lactic Acid Calcium Total Bilirubin AST ALT Alkaline Phosphatase Total Protein Albumin Lipase Acetone, Qual Imaging Radiologist's Impressions: Impressions Abdomen/Pelvis CT 10/26/21 06:10 IMPRESSION: * Multiple mildly dilated loops of small bowel present throughout the abdomen, with a relatively gradual transition to normal caliber within the left lower quadrant. Findings are more suggestive of an ileus, perhaps related to an enteritis, rather than a mechanical small bowel obstruction. * Small pelvic free fluid, and minimal fluid scattered throughout the mesentery presumably reactive. Fleischner guidelines were followed. Assessment and Plan (1) Ileus: Status: Acute Plan 30 year old man admitted with abdominal pain secondary to ileus . Ileus, acute unknown etiology Diarrhea, non bloody NPO for now GI consult stool studies including cdiff IV fluids Diabetes ADA diet sliding scale Anxiety Lexapro DVT prophylaxis with early ambulation Full code attending Dr. Griffith Quality Stroke Does the patient have a stroke diagnosis?: No VTE Prior VTE?: No VTE Risk Level:: Medical - moderate - high VTE Device Contraindication: N/A - Device Ordered VTE Drug Contraindication: Treatment Not Indicated
[2021-10-26] MEDS: Dextrose 5 % and 0.45 % NaCl 1,000 ML 125 ML IVCONT ×2 (07:51→15:57)
[2021-10-26] MEDS: Insulin Lispro 100 UNIT/ML 3 ML VIAL SUBCUT ×4 (07:51→19:56)
[2021-10-26 08:03] LABS: COVID-19 Test Negative (Negative)
--- NOTE | 2021-10-26 08:24 | PHA.MEDREC ---
Pharmacy Consult ? Medication Reconciliation Pharmacy has completed the medication reconciliation. Pt stated his PCP just started his new prescriptions a few days ago, but has not taken lantus yet because he did not have the syringes needed to inject. Eleanor Maza, OrianaD
[2021-10-26 08:40] LABS: Appearance Urine CLEAR; Color Urine YELLOW; Glucose Urine UA 500 MG/DL (NEG); Leukocyte Esterase Urine NEG (NEG); Nitrite Urine NEG (NEG); PH 6.5 (5.0-8.0); Specific Gravity - Urine <= 1.005 (1.005-1.025); Urine Blood NEG (NEG); Urine Ketones NEG (NEG); Urine Protein NEG (NEG-TRACE)
[2021-10-26 10:08] VITALS: BP 109/73; PULSE 82; RESP 16; TEMP 36.4; O2SAT 95
[2021-10-26 12:16] LABS: Glucose, Whole Blood 256 mg/dL (60-115)
[2021-10-26 12:18] VITALS: BP 103/71; PULSE 94; RESP 14; TEMP 36.6; O2SAT 95
[2021-10-26] MEDS: Nicotine 14 MG PATCH.TD24 TRANSDERMA (14:48)
--- NOTE | 2021-10-26 15:21 | MHC.CM.PN ---
PATIENT LIVES WITH HIS . HE IS INDEPENDENT WITH ALL ADLS CAR IS IN LOT HE HAS BEEN COVID VACCINATED (NO BOOSTER) PFIZER SERIES 02/11/21 AND 06/23/21. INFORMATION ADDED INTO EXPANSE HE WILL CONSIDER A HCP COMPLETION WHEN HE IS FEELING BETTER CASE MANAGEMENT AVAILABLE
[2021-10-26 16:50] LABS: Glucose, Whole Blood 207 mg/dL (60-115)
[2021-10-26 18:31] VITALS: BP 114/72; PULSE 92; RESP 16; TEMP 37.5; O2SAT 96
[2021-10-26 19:44] LABS: Glucose, Whole Blood 227 mg/dL (60-115)
[2021-10-26] MEDS: Famotidine/PF 20 MG/2 ML VIAL IVPUSH (19:55)
[2021-10-26 22:29] LABS: Leukocytes Stool Qualitative FEW: < 2/OIF (NEGATIVE)
[2021-10-26 22:45] LABS: CDiff Gene PCR NEGATIVE (Negative)
[2021-10-27] VITALS: BP 128/70; PULSE 92; RESP 18; TEMP 36.6; O2SAT 94
[2021-10-27] MEDS: diphenhydrAMINE HCL 50 MG/ML VIAL 25 MG IVPUSH (00:46)
[2021-10-27] MEDS: Dextrose 5 % and 0.45 % NaCl 1,000 ML 125 ML IVCONT (02:19)
[2021-10-27 03:39] VITALS: BP 125/81; PULSE 79; RESP 18; TEMP 36.5; O2SAT 97
[2021-10-27 07:30] LABS: MANUAL DIFF FLAG NO
[2021-10-27 07:35] VITALS: BP 114/76; PULSE 87; RESP 17; TEMP 36.5; O2SAT 97
[2021-10-27 07:39] LABS: Basophils Percent Auto 0.6 % (0-2); Eosinophils Absolute Auto 0.2 X10*3/uL (0.0-0.4); Eosinophils Percent Auto 2.3 % (0-4); Hemoglobin 14.9 g/dl (14.0-18.0); Imm Gran Abs Auto 0.04 X10*3/uL (0.00-0.03); Imm Gran Pct Auto 0.6 % (0.0-0.4); Lymphocytes Absolute Auto 1.7 X10*3/uL (1.2-4.9); Mean Corpuscular HGB Conc 33.9 g/dl (31.0-36.0); Mean Corpuscular Hemoglobin 30.3 pg (27.0-33.0); Mean Corpuscular Volume 89.6 fL (80.0-98.0); Monocytes Absolute Auto 1.1 X10*3/uL (0.1-1.2); Monocytes Percent Auto 17.7 % (2-11); Neutrophils Absolute Auto 3.4 x10*3/uL (2.0-8.3); Neutrophils Percent Auto 52.8 % (45-73); Platelet Count 116 X10*3/uL (160-400); Red Blood Count 4.91 X10*6/uL (4.60-5.80); Red Cell Distribution Width 12.1 % (11.0-16.0); White Blood Count 6.5 X10*3/uL (4.8-10.8)
[2021-10-27 07:43] LABS: Glucose, Whole Blood 280 mg/dL (60-115)
[2021-10-27 07:57] LABS: Anion Gap 10 (12-20); Blood Urea Nitrogen 6 mg/dL (9-16); Calcium 8.4 mg/dL (8.4-10.2); Carbon Dioxide 25 mmol/L (22-29); Chloride 104 mmol/L (96-108); Creatinine Clr Calc Pharmacy 134.2; Estimated Glomerular Filt Rate > 60; Glucose Random 272 mg/dL (60-115); Sodium 135 mmol/L (135-145)
[2021-10-27] MEDS: Insulin Lispro 100 UNIT/ML 3 ML VIAL SUBCUT ×2 (07:59→12:13)
[2021-10-27] MEDS: Nicotine 14 MG PATCH.TD24 TRANSDERMA (07:59)
[2021-10-27] MEDS: Famotidine/PF 20 MG/2 ML VIAL IVPUSH (07:59)
[2021-10-27] MEDS: 0.9 % Sodium Chloride Flush 3 ML SYRINGE IVFLUSH (08:01)
--- NOTE | 2021-10-27 10:11 | PM.EVENT ---
Event Note Date of Service: 10/27/21 Event Note: GI consult dictated Ileus appears secondary to viral gastroenteritis Feels better today recommend advance diet and d/c when stable
--- NOTE | 2021-10-27 10:57 | CONS_ITS ---
DATE OF SERVICE: 10/27/2021 REFERRING PHYSICIAN: Tri Akbar NP REASON FOR CONSULTATION: Abdominal pain and ileus. HISTORY OF PRESENT ILLNESS: The patient is a pleasant 30-year-old man who was admitted to the hospital after presenting to the emergency room with complaints of abdominal pain, which was generalized across the abdomen for 2 days prior to admission with associated cramping and nonbloody diarrhea. There were no associated fevers, chills, nausea, or vomiting. He denies any recent travel or ill contacts. He has not had any suspected food ingestions. He was evaluated in the emergency department with laboratory studies, which are reviewed. He subsequently underwent imaging with CT scanning, which was also reviewed. This was interpreted as showing multiple mildly dilated loops of small bowel present throughout the abdomen suggestive of ileus. The patient denies any prior history of Crohn disease or colitis. PAST MEDICAL HISTORY: 1. Diabetes mellitus. 2. Asthma. 3. Migraine headaches. 4. Anxiety/depression. CURRENT MEDICATIONS: Current medication list is reviewed in the chart. ALLERGIES: THERE ARE NONE REPORTED. FAMILY HISTORY: This is negative for inflammatory bowel disease. SOCIAL HISTORY: He does smoke. He denies significant alcohol intake. REVIEW OF SYSTEMS: SKIN: No pruritus. HEENT: Negative. CARDIOPULMONARY: He denies shortness of breath or chest pain. GASTROINTESTINAL: As above. GENITOURINARY: Negative. NEUROPSYCHIATRIC: Negative. PHYSICAL EXAMINATION: GENERAL: Shows a pleasant male sitting comfortably on the side of the bed. VITAL SIGNS: Reviewed in the electronic medical record and are stable. He had a T-max of 99.5. SKIN: Anicteric. HEENT: Shows no scleral icterus. NECK: Without lymphadenopathy or thyromegaly. LUNGS: Clear. HEART: Shows a regular rate and rhythm. S1, S2. No murmur. ABDOMEN: Soft without focal masses or tenderness. Bowel sounds are present. No organomegaly is noted. EXTREMITIES: Without edema. LABORATORY DATA: Laboratory data and CT scanning are reviewed as above. IMPRESSION: Abdominal pain with ileus. His symptoms appear most consistent with a viral gastroenteritis. He states he feels markedly improved today with supportive care including IV fluids and pain medications. I would recommend advancing his diet, and if he tolerates the diet, he can be discharged for outpatient followup with his primary care provider. I do not think he needs GI tract endoscopy at this time. Thanks for asking me to see him. I will follow him in the hospital as needed. MD JAMESON Joaquin/BLANCA / [phone]
[2021-10-27 11:24] VITALS: BP 114/69; PULSE 87; RESP 18; TEMP 37.1; O2SAT 95
[2021-10-27 11:33] LABS: Glucose, Whole Blood 193 mg/dL (60-115)
--- NOTE | 2021-10-27 12:40 | PM.DS ---
DS: Providers Provider Date of Service: 10/27/21 Date of admission: 10/26/21 07:41 Primary care physician: Fallon Penny MD Consults: 10/26/21 13:33 Consult to Gastroenterology Routine Consulting Provider: Abel Negrete Reason for consultation: ABD PAIN, ILEUS Has provider been notified: No Attending physician on discharge: Lior Gonzales Discharging clinician: Tri Akbar DS: Diagnosis Discharge Diagnosis (1) Ileus: Status: Acute (2) Viral gastroenteritis: Status: Acute DS: Summary Hospital Course Hospital Course: 30 year old man presenting with abdominal pain and diarrhea over the last 2 days. He denied any recent travel, improperly cooked foods, nausea, vomiting, fevers, chills. He reported cramping with non bloody diarrhea. He has a history of diabetes, no recent antibiotic use. Abdominal ct showed findings suggestive of an ileus. No fever or leukocytosis noted. In the ED he was given IV fluids, toradol, zofran. He will be admitted for further management of abdominal pain and ileus. Ileus secondary to viral gastroenteritis, nonbloody diarrhea, seen by GI with no rec for further work-up. Stool studies negative. Treated with IV fluids and clear liquids. Diet advanced. Patient ok to discharge home. Time Spent with Patient Time attestation: Total time spent providing and/or coordinating discharge services: Discharge coordination time: Greater than 30 minutes Quality: Stroke Does the patient have a stroke diagnosis?: No Physical Exam Vital Signs: Vital Signs: Last Vital Signs Temp 98.7 F 10/27/21 11:24 Pulse 87 10/27/21 11:24 Resp 18 10/27/21 11:24 BP 114/69 10/27/21 11:24 Pulse Ox 95 10/27/21 11:24 BMI result Body Mass Index 27.8 Appearing in no acute distress head is normocephalic atraumatic eyes pupils are PERRLA sclera is anicteric mouth throat mucous membranes are intact and moist neck is supple no lymphadenopathy, no JVD noted lung sounds are clear to auscultation heart regular rate rhythm, clear S1, S2 positive bowel sounds, abdomen is soft, nontender neuro patient is alert x3, no focal deficits DS: Data Data Completed and Pending Labs on day of discharge: Laboratory Results - last 24 hr 10/26/21 10/26/21 10/26/21 16:46 18:29 20:30 WBC RBC Hgb Hct MCV MCH MCHC RDW Plt Count MPV Immature Gran % (Auto) Neut % (Auto) Lymph % (Auto) Collier % (Auto) Eos % (Auto) Baso % (Auto) Lymph # (Auto) Collier # (Auto) Eos # (Auto) Baso # (Auto) Abs Immat Gran (auto) Absolute Neuts (auto) Absolute Nucleated RBC Nucleated RBC % (auto) Sodium Potassium Chloride Carbon Dioxide Anion Gap BUN Creatinine Estim Creat Clear Calc Estimated GFR POC Glucose 207 H 227 H Random Glucose Calcium Stool Leukocytes, Qual FEW: < 2/OIF C. difficile Tox B Gene 10/26/21 10/27/21 10/27/21 20:30 07:07 07:07 WBC 6.5 RBC 4.91 Hgb 14.9 Hct 44.0 MCV 89.6 MCH 30.3 MCHC 33.9 RDW 12.1 Plt Count 116 L MPV 11.0 Immature Gran % (Auto) 0.6 H Neut % (Auto) 52.8 Lymph % (Auto) 26.0 Collier % (Auto) 17.7 H Eos % (Auto) 2.3 Baso % (Auto) 0.6 Lymph # (Auto) 1.7 Collier # (Auto) 1.1 Eos # (Auto) 0.2 Baso # (Auto) 0.0 Abs Immat Gran (auto) 0.04 H Absolute Neuts (auto) 3.4 Absolute Nucleated RBC 0.000 Nucleated RBC % (auto) 0.0 Sodium 135 Potassium 4.0 Chloride 104 Carbon Dioxide 25 Anion Gap 10 L BUN 6 L D Creatinine 0.83 Estim Creat Clear Calc 134.2 Estimated GFR > 60 POC Glucose Random Glucose 272 H Calcium 8.4 D Stool Leukocytes, Qual C. difficile Tox B Gene NEGATIVE 10/27/21 10/27/21 07:39 11:28 WBC RBC Hgb Hct MCV MCH MCHC RDW Plt Count MPV Immature Gran % (Auto) Neut % (Auto) Lymph % (Auto) Collier % (Auto) Eos % (Auto) Baso % (Auto) Lymph # (Auto) Collier # (Auto) Eos # (Auto) Baso # (Auto) Abs Immat Gran (auto) Absolute Neuts (auto) Absolute Nucleated RBC Nucleated RBC % (auto) Sodium Potassium Chloride Carbon Dioxide Anion Gap BUN Creatinine Estim Creat Clear Calc Estimated GFR POC Glucose 280 H 193 H Random Glucose Calcium Stool Leukocytes, Qual C. difficile Tox B Gene Preliminary micro results at discharge 10/26/21 20:30 Stool Culture - Preliminary Stool Normal so far. 10/26/21 05:10 Blood Culture - Preliminary Blood - Venous No growth after 24 hours. 10/26/21 05:10 Blood Culture - Preliminary Blood - Venous No growth after 24 hours. Discharge Plan Discharge Anticipated Discharge Date/Time: 10/27/21 12:36 Patient Disposition: Home, Self-Care Discharge Diagnosis: Viral gastroenteritis Referrals: Fallon Butt MD [Primary Care Provider] - 1 Week Discharge Medications: Continued Lantus U-100 Insulin 100 unit/mL solution 20 unit subcut DAILY 90 Days Qty: 18 3RF (DME) insulin syringe-needle U-100 [BD Insulin Syringe Ultra-Fine] 0.5 mL 31 gauge x 5/16 syringe See Rx Instructions .Route Qty: 100 3RF Rx Instructions: Use 1 needle once a day sumatriptan succinate 25 mg tablet 25 mg PO Q2H PRN (Reason: migraine headache) 0RF Rx Instructions: do not exceed 8 doses per 24 hrs albuterol sulfate [ProAir HFA] 90 mcg/actuation HFA aerosol inhaler 1 puff inhalation QID PRN (Reason: shortness of breath or wheezing) 30 Days Qty: 6.7 1RF escitalopram oxalate 10 mg tablet 10 mg PO DAILY 90 Days Qty: 90 0RF (DME) blood-glucose meter [FreeStyle Lite Meter] Kit See Rx Instructions .Route Qty: 1 0RF Rx Instructions: As directed (DME) FreeStyle Lite Strips Strip See Rx Instructions .Route Qty: 50 6RF Rx Instructions: Use 1 test strip twice a day (DME) lancets [FreeStyle Lancets] 28 gauge misc See Rx Instructions .Route Qty: 100 6RF Rx Instructions: Use 1 lancet once a day Discharge Orders: Discharge Order (Routine); Ordered 10/27/21 Ordered By: Tri Akbar Diet: advance to usual diet and diabetic diet Activity on Discharge: As tolerated Stand Alone Forms: Patient Portal Discharge page Care Plan Goals: resolution of symptoms Health Concerns: Viral gastroenteritis Plan of Treatment: Continue bland diet for next few days Follow up with your primary care provider as needed Assessment: See discharge summary
--- NOTE | 2021-10-27 13:09 | MHC.CM.PN ---
pt dcd today no skilled servceis orderd by
== END 2021-10-27 13:33 | disposition home or self-care (01) | DRG 247 ==
LOC: HO.ED 07:09 → HO.EDOVER 07:58 → HO.IMC 15:42
PROVIDERS: Admitting Provider Nurse Practitioner Acute Care; Emergency Provider Student in an Organized Health Care Education/Training Program; PCP Internal Medicine; Visit Provider Nurse Practitioner Acute Care
DX: K56.7 Ileus, unspecified (principal); E11.9 Type 2 diabetes mellitus without complications; K52.9 Noninfective gastroenteritis and colitis, unspecified; F17.210 Nicotine dependence, cigarettes, uncomplicated; F41.9 Anxiety disorder, unspecified; F32.A Depression, unspecified; G43.909 Migraine, unspecified, not intractable, without status migrainosus; Z20.822 Contact with and (suspected) exposure to COVID-19; Z71.6 Tobacco abuse counseling; Z79.4 Long term (current) use of insulin; Z79.899 Other long term (current) drug therapy
CPT/HCPCS: 36415; 74177; 80048; 80053; 81003; 82009; 82947; 83605; 83690; 85025; 87040; 87045; 87046; 87493; 87635; 89055; 96361; 96374; 96375; 99284; 99285; J1200; J1885; J2405; Q9967

== ENCOUNTER 2021-11-14 07:48 | Outpatient (REF) | payer OTHER, SELFPAY ==
[2021-11-14 08:51] LABS: Alanine Aminotransferase 24 U/L (0-40); Albumin Level 4.2 g/dL (3.5-5.0); Alkaline Phosphatase 124 U/L (39-117); Anion Gap 10 (12-20); Aspartate Amino Transferase 13 U/L (5-37); Bilirubin Total 0.5 mg/dL (0.0-1.0); Blood Urea Nitrogen 12 mg/dL (9-16); Calcium 9.4 mg/dL (8.4-10.2); Carbon Dioxide 25 mmol/L (22-29); Chloride 106 mmol/L (96-108); Cholesterol 127 mg/dL; Estimated Glomerular Filt Rate > 60; Glucose Fasting 272 mg/dL (60-99); HDL Cholesterol 30 mg/dL; LDL Cholesterol Calculated 47 mg/dl; Potassium 4.4 mmol/L (3.3-5.1); Sodium 137 mmol/L (135-145); Total Protein 6.8 g/dL (6.5-8.0); Triglycerides 253 mg/dL
== END 2021-11-14 07:49 | disposition home or self-care (01) ==
LOC: HO.LAB 07:48
PROVIDERS: PCP Internal Medicine; Visit Provider Internal Medicine
DX: E78.5 Hyperlipidemia, unspecified (principal); G43.909 Migraine, unspecified, not intractable, without status migrainosus
CPT/HCPCS: 36415; 80053; 80061

== ENCOUNTER 2022-02-27 07:21 | Outpatient (REF) | payer OTHER, SELFPAY ==
[2022-02-27 08:21] LABS: Alanine Aminotransferase 26 U/L (0-40); Albumin Level 4.4 g/dL (3.5-5.0); Alkaline Phosphatase 103 U/L (39-117); Anion Gap 11 (12-20); Aspartate Amino Transferase 13 U/L (5-37); Bilirubin Total 0.4 mg/dL (0.0-1.0); Blood Urea Nitrogen 14 mg/dL (9-16); Calcium 9.3 mg/dL (8.4-10.2); Carbon Dioxide 28 mmol/L (22-29); Chloride 101 mmol/L (96-108); Cholesterol 165 mg/dL; Estimated Glomerular Filt Rate > 60; Glucose Fasting 301 mg/dL (60-99); HDL Cholesterol 35 mg/dL; Potassium 4.2 mmol/L (3.3-5.1); Sodium 136 mmol/L (135-145); Total Protein 7.2 g/dL (6.5-8.0); Triglycerides 443 mg/dL
[2022-02-27 08:44] LABS: Syphilis Screen Nonreactive (Nonreactive)
[2022-02-27 08:52] LABS: HBS Num1 6.21 mIU/mL (0-7.99); HBc Num1 0.04 S/CO (0.00-0.79); HBsAGNum1 0.23 S/CO (0.00-0.99); HIV AB/AG Nonreactive (Nonreactive); HIV Num 1 0.07 S/CO (0.00-0.99); Hepatitis A Antibody IgM 0.16 Index (0-0.79); Hepatitis B Core Antibody Nonreactive (Nonreactive); Hepatitis B Surface Antigen Negative (Negative); ~HepC Num1 0.06 S/CO (0.00-0.79); ~Hepatitis A Antibody IgM Nonreactive (Nonreactive); ~Hepatitis B Surface Antibody NONREACTIVE (Nonreactive); ~Hepatitis C Antibody Nonreactive (Nonreactive)
[2022-02-27 09:40] LABS: Creatinine Urine 135.59 mg/dL; Microalbum/Creatinine Ratio Ur 103.2 ug/mg cr
[2022-02-27 12:59] LABS: CT PCR NOT DETECTED (Not Detect.); NG PCR NOT DETECTED (Not Detect.)
[2022-03-04 15:06] LABS: Vitamin D 25-OH, D2 <4 ng/mL; Vitamin D 25-OH, D3 10 ng/mL; Vitamin D 25-OH, Total 10 ng/mL (30-100)
== END 2022-02-27 07:22 | disposition home or self-care (01) ==
LOC: HO.LAB 07:21
PROVIDERS: PCP Internal Medicine; Visit Provider Internal Medicine
DX: Z11.4 Encounter for screening for human immunodeficiency virus [HIV] (principal); Z11.3 Encounter for screening for infections with a predominantly sexual mode of transmission; E55.9 Vitamin D deficiency, unspecified; E11.9 Type 2 diabetes mellitus without complications; E78.5 Hyperlipidemia, unspecified
CPT/HCPCS: 80053; 80061; 82043; 82306; 86704; 86706; 86709; 86780; 86803; 87340; 87389; 87491; 87591

== ENCOUNTER 2023-01-04 09:33 | Outpatient (REF) | payer OTHER, SELFPAY ==
[2023-01-04 11:56] LABS: HIV AB/AG Nonreactive (Nonreactive); HIV Num 1 0.06 S/CO (0.00-0.99)
[2023-01-04 11:59] LABS: Syphilis Screen Nonreactive (Nonreactive)
[2023-01-04 12:26] LABS: Creatinine Urine 143.01 mg/dL; Microalbum/Creatinine Ratio Ur 75.5 ug/mg cr
[2023-01-04 12:38] LABS: CT PCR NOT DETECTED (Not Detect.); NG PCR NOT DETECTED (Not Detect.)
[2023-01-04 12:39] LABS: Alanine Aminotransferase 19 U/L (0-40); Albumin Level 4.4 g/dL (3.5-5.0); Alkaline Phosphatase 125 U/L (39-117); Anion Gap 14 (12-20); Aspartate Amino Transferase 11 U/L (5-37); Bilirubin Total 0.5 mg/dL (0.0-1.0); Blood Urea Nitrogen 12 mg/dL (9-16); Carbon Dioxide 26 mmol/L (22-29); Chloride 104 mmol/L (96-108); Cholesterol 205 mg/dL; Estimated Glomerular Filt Rate > 60; Glucose Fasting 303 mg/dL (60-99); HDL Cholesterol 52 mg/dL; LDL Cholesterol Calculated 122 mg/dl; Sodium 139 mmol/L (135-145); Total Protein 6.9 g/dL (6.5-8.0); Triglycerides 158 mg/dL
[2023-01-04 13:01] LABS: Vitamin D 25-OH Total 13.4 ng/mL (>30)
[2023-01-10 09:44] LABS: HSV 1 IgM IFA Negative (Negative); HSV 2 IgM IFA Negative (Negative)
[2023-01-11 15:09] LABS: Testosterone, Free 100.3 pg/mL (35.0-155.0); Testosterone, Total 446 ng/dL (250-1100)
== END 2023-01-04 09:34 | disposition home or self-care (01) ==
LOC: HO.LAB 09:33
PROVIDERS: PCP Internal Medicine; Visit Provider Internal Medicine
DX: Z11.4 Encounter for screening for human immunodeficiency virus [HIV] (principal); E55.9 Vitamin D deficiency, unspecified; E78.5 Hyperlipidemia, unspecified; E11.9 Type 2 diabetes mellitus without complications; N52.9 Male erectile dysfunction, unspecified; Z20.2 Contact with and (suspected) exposure to infections with a predominantly sexual mode of transmission
CPT/HCPCS: 0353U; 36415; 80053; 80061; 82043; 82306; 84402; 84403; 86695; 86696; 86780; 87389

== ENCOUNTER 2023-01-08 14:46 | Outpatient (REF) | payer OTHER, SELFPAY ==
[2023-01-08 16:24] LABS: Appearance Urine Clear; Color Urine Yellow; Glucose Urine UA >=1000 mg/dL (Negative); Leukocyte Esterase Urine Negative (Negative); Nitrite Urine Negative (Negative); Specific Gravity - Urine >= 1.030 (1.005-1.025); UMIC TRIGGER UACC YES; Urine Blood Negative (Negative); Urine Ketones Negative (Negative); Urine Protein Negative (Neg-Trace)
[2023-01-08 16:30] LABS: Bacteria Urine None Seen (None Seen); Hyaline Casts Urine 0-2 /LPF (0-2); RBC Urine 0-2 /HPF (0-2); Squamous Epithelial Cell Urine 0-2 /HPF (0-2); WBC Urine 0-5 /HPF (0-5)
== END 2023-01-08 14:47 | disposition home or self-care (01) ==
LOC: HO.LAB 14:46
PROVIDERS: PCP Internal Medicine; Visit Provider Internal Medicine
DX: Z20.2 Contact with and (suspected) exposure to infections with a predominantly sexual mode of transmission (principal)
CPT/HCPCS: 81001

== ENCOUNTER 2023-04-13 14:57 | Outpatient (AMB) | payer OTHER, SELFPAY ==
[2023-04-13 15:03] VITALS: BP 114/80; PULSE 80; O2SAT 96; BMI 29.6
--- NOTE | 2023-04-13 15:03 | A.OFFPC_ITS ---
Vital Signs 04/13/23 15:03 Height 5 ft 7.72 in Weight 193 lb BMI 29.6 BP 114/80 Blood Pressure Location Rt brachial Position Sitting Pulse 80 Pulse Source Pulse Oximeter Pulse Oximetry (%) 96 Oxygen Delivery Method Room Air Intake Visit Reasons: Annual Exam Intake Note: Patient is here today for a physical. Pt is requesting nicotine patches to quit smoking. [place] Required: No Accompanied by: Self / Same As Patient Allergies No Known Allergies [No Known Allergies*] Allergy (Verified 04/13/23 15:23) Medication List - Last Reconciled 04/13/23 by Fallon Penny MD blood sugar diagnostic (FreeStyle Lite Strips) Use 1 test strip twice a day blood-glucose meter (FreeStyle Lite Meter kit) As directed cholecalciferol (vitamin D3) 50 mcg PO DAILY 90 days escitalopram oxalate 20 mg PO DAILY 90 days fenofibrate 54 mg PO DAILY 90 days insulin glargine (Lantus Solostar U-100 Insulin) 22 units (0.22 mL) subcut QAM 68 days lancets (FreeStyle Lancets) Use 1 lancet once a day pen needle, diabetic (BD Ultra-Fine Short Pen Needle) Use 1 pen needle once a day ProAir HFA 90 mcg/actuation (albuterol sulfate) 2 puffs inhalation Q6H PRN 30 days NS rizatriptan 5 mg PO Q2-4H PRN 30 days sildenafil 50 mg PO DAILY PRN 14 days Tobacco use date assessed: 04/13/23 Dental Screening Dental Screen Date: 04/13/23 Did you have a dental visit in the last 12 months?: No Did you have a dental problem in the last 6 months where you did not have access to dental care?: No Was dental information given to patient?: Patient has dentist HPI HPI Comments History of Present Illness Details This is a 32-year-old male with mild recurrent major depression and diabetes mellitus that comes for his physical exam. Depression has been stable with medications. A1c elevated and I will increase insulin. Diabetic eye exam was less than a year ago as per patient. No chest pain or shortness of breath. [facility] Medical History Asthma Diabetes VIDAL (generalized anxiety disorder) Insomnia Microalbuminuria Migraine Mild recurrent major depression Overweight (BMI 25.0-29.9) Screen for STD (sexually transmitted disease) Family History Mother No problems noted. Father Diabetes Maternal Aunt Colon cancer Social History Household Members: Spouse and Children Housing: House Do you presently have visiting nurse or other home services: No Alcohol intake: never Patient Tobacco Use Status: Current everyday Tobacco user Tobacco use type: Cigarette Cigarette Packs Per Day: 1 Cigarettes Per Day: 15 e-Cigarette/Vaping Use: Former Use Second Hand Smoke Exposure: No service: No Current occupational status: employed Current occupational exposures/hazards: No Cognitive needs: No Hearing needs: No Vision needs: Yes Questionnaire PHQ-9 Over the last 2 weeks, how often have you been bothered by any of the following problems? 1. Little interest or pleasure in doing things: several days 2. Feeling down, depressed, or hopeless: several days 3. Trouble falling or staying asleep, or sleeping too much: nearly every day 4. Feeling tired or having little energy: nearly every day 5. Poor appetite or overeating: not at all 6. Feeling bad about yourself - or that you are a failure or have let yourself or your family down: not at all 7. Trouble concentrating on things, such as reading the newspaper or watching television: not at all 8. Moving or speaking so slowly that other people could have noticed. Or the opposite - being so fidgety or restless that you have been moving around a lot more than usual: not at all 9. Thoughts that you would be better off or of hurting yourself in some way: not at all Total score: 8 Depression Screening Interpretation: Positive Depression Screening Follow-up: Existing condition and In treatment 59994 - PHQ-9 Billing: Yes Source: Developed by Drs. Neo Washington, Radha Tesfaye, Louie Keys and colleagues, with an educational sera from [employer]. Thrive Questionnaire Date Thrive assessed: 04/13/23 I am a: Patient What is your living situation today?: I do not have a steady places to live (Pt is staying at a family member home. ) Within the past 12 months, did the food you bought not last and you didn't have the money to get more?: Never true Within the past 12 months, did you worry whether your food would run out before you got money to buy more?: Never true Do you have trouble paying for medicines?: No Do you have trouble getting transportation to medical appointments?: No Do you have trouble paying your heating and electricity bill?: No Do you have trouble taking care of your child, family member or friend?: No Do you have trouble with day-to-day activities such as bathing, preparing meals, shopping, managing finances, etc.?: No Are you currently unemployed and looking for a job?: No Are you interested in more education?: No Please select the resources that you would like help with: Housing/[facility] and Transportation Currently or been in a relationship where the following occur: no concerns reported AUDIT C Alcohol Use Questionnaire (AUDIT-C) 1. How often do you have a drink containing alcohol?: Never 3. How often do you have six or more drinks on one occasion?: Never Total Score: 0 VIDAL-7 AMB Questionnaire VIDAL-7 Date VIDAL - 7 assessed: 04/13/23 Feeling nervous, anxious, or on edge: 1 = Several days Not being able to stop or control worryin = Not at all Worrying too much about different things: 3 = Nearly every day Trouble relaxin = Nearly every day Being so restless that it is hard to sit still: 3 = Nearly every day Becoming easily annoyed or irritable: 1 = Several days Feeling afraid as if something awful might happen: 0 = Not at all Total VIDAL-7 score (0-4 normal; 5-9 mild; 10-14 moderate; 15-21 severe): 11 Source: Developed by Drs. Neo Washington, Radha Tesfaye, Louie Keys and colleagues, with an educational sera from [employer]. VIDAL-7 Assessment Billing VIDAL-7 Assessment Tool: VIDAL-7 Assessment 82607 Review of Systems Const All systems reviewed & are unremarkable except as noted in HPI and below Eyes Reports no additional complaints, Denies change in vision and Denies other visual disturbances ENT Denies change in voice, Denies nasal discharge and Denies sinus pain Card Denies chest pain at rest, Denies chest pain with activity, Denies edema, Denies irregular heart rhythm, Denies claudication, Denies dyspnea, Denies dyspnea on exertion, Denies orthopnea, Denies paroxysmal nocturnal dyspnea and Denies slow heart rate Resp Denies cough, Denies dyspnea and Denies dyspnea on exertion GI Denies abdominal pain, Denies change in bowel habits, Denies excessive flatus, Denies nausea and Denies vomiting Denies urinary hesitancy, Denies urinary incontinence and Denies urinary urgency Musc Denies abnormal gait, Denies atrophy, Denies deformity and Denies limited range of motion Skin/Breast Denies bleeding lesions, Denies changing lesions and Denies rash Neuro Denies abnormal gait and Denies lack of coordination Physical exam (Primary Care) Vital Signs: Last Vital Signs Pulse 80 04/13/23 15:03 BP 114/80 04/13/23 15:03 Pulse Ox 96 04/13/23 15:03 Oxygen Delivery Method Room Air 04/13/23 15:03 BMI result Body Mass Index 29.6 Tobacco/Smoking Status: Tobacco use Status Tobacco use date assessed 04/13/23 04/13/23 15:13 Patient Tobacco Use Status Current everyday Tobacco 04/13/23 15:13 Tobacco use type Cigarette 04/13/23 15:13 e-Cigarette/Vaping Use Former Use 04/13/23 15:13 PHQ-9: PHQ-9 Score PHQ-9: Total score 8 04/13/23 16:32 Depression Screening Interpretation: Positive Depression Screening Follow-up: Existing condition and In treatment Thrive Assessment: Date of Thrive Assessment Date Thrive assessed 04/13/23 04/13/23 15:13 Currently or been in a relationship where the following occur: no concerns reported Const Orientation/consciousness: patient oriented x3 HENMT Head: Yes normal to inspection, Yes normocephalic and Yes atraumatic Ears: external ears normal Eyes General: appearance normal, both eyes and all related structures Eyelids: Yes eyelids normal Conjunctivae: conjunctivae normal Neck Neck: Yes normal visual inspection and Yes supple Resp Effort & Inspection: normal respiratory effort Auscultation: clear to auscultation bilaterally Cardio Jugular venous distension: no JVD Rate: regular rate Rhythm: regular rhythm Heart sounds: S1 normal heart sound present and S2 normal heart sound present GI Inspection: Yes normal to inspection Palpation (GI): Soft to palpation and nontender Auscultation: normal bowel sounds Skin General skin exam: no rashes or lesions noted Neuro General: patient oriented x3 and no focal motor deficits Extrem General: Yes full ROM Psych Appearance: grossly normal Results AMB Hemoglobin A1c AMB Hemoglobin A1c 9.5 % Last Edit by RAMÓN Correa on 04/13/23 15:34 Results Reviewed Results Reviewed: Laboratory Last Values Hgb A1c (Clinic) 9.5 % (4.0-6.0) H 04/13/23 15:30 Assessment and Plan Assessment & Plan (1) Physical exam: Code(s): Z00.00 - Encounter for general adult medical examination without abnormal findings Plan: Repeat in a year (2) Diabetes: Code(s): E11.9 - Type 2 diabetes mellitus without complications Plan: Increase insulin to 25 units once a day. A1c goal is equal or less than 7%. (3) Mild recurrent major depression: Code(s): F33.0 - Major depressive disorder, recurrent, mild Plan: Continue escitalopram. Orders: Orders Lipid Panel Today E78.5 - Hyperlipidemia, unspecified Vitamin D 25-OH Total Today E55.9 - Vitamin D deficiency, unspecified Comprehensive [place]. Panel Fast Today E11.9 - Type 2 diabetes mellitus without complications Insulin Auto Antibody Today E11.9 - Type 2 diabetes mellitus without complications Glutamic acid decarboxylase Ab Today E11.9 - Type 2 diabetes mellitus without complications UA CC w/rflx Micro + Cult Today Z20.2 - Contact with and (suspected) exposure to infections with a predominantly sexual mode of transmission CT NG by PCR Today Z11.3 - Encounter for screening for infections with a predominantly sexual mode of transmission AMB Hemoglobin A1c Today E11.9 - Type 2 diabetes mellitus without complications Medications: New sildenafil administer 30 minutes to 4 hours before activity 100 mg PO DAILY 30 days PRN 5 tabs 0RF sexual activity sildenafil administer 30 minutes to 4 hours before activity 100 mg PO DAILY PRN 5 tabs 0RF sexual activity 30 days nicotine 1 patch transdermal DAILY 28 ea 0RF 28 days Ventolin HFA 90 mcg/actuation (albuterol sulfate) 2 puffs inhalation Q6H PRN 8 grams 1RF shortness of breath or wheezing 30 days NS Changed From insulin glargine (Lantus Solostar U-100 Insulin) 22 units (0.22 mL) subcut QAM 68 days 14.96 mL 4RF E11.9 - Type 2 diabetes mellitus without complications To insulin glargine (Lantus Solostar U-100 Insulin) 25 units (0.25 mL) subcut QAM 17 mL 4RF 68 days E11.9 - Type 2 diabetes mellitus without complications Refilled rizatriptan do not exceed 6 doses per 24 hrs 5 mg PO Q2-4H PRN 5 tabs 0RF migraine headache 30 days blood-glucose meter (FreeStyle Lite Meter kit) As directed 1 ea 0RF E11.9 - Type 2 diabetes mellitus without complications blood sugar diagnostic (FreeStyle Lite Strips) Use 1 test strip twice a day 50 ea 6RF E11.9 - Type 2 diabetes mellitus without complications lancets (FreeStyle Lancets) Use 1 lancet once a day 100 ea 6RF E11.9 - Type 2 diabetes mellitus without complications cholecalciferol (vitamin D3) 50 mcg PO DAILY 90 caps 1RF 90 days R79.89 - Other specified abnormal findings of blood chemistry escitalopram oxalate 20 mg PO DAILY 90 tabs 1RF 90 days F33.0 - Major depressive disorder, recurrent, mild fenofibrate 54 mg PO DAILY 90 tabs 1RF 90 days E78.1 - Pure hyperglyceridemia Discontinued sildenafil administer 30 minutes to 4 hours before activity Discontinued Reason: Patient Completed Course 50 mg PO DAILY 14 days PRN 3 tabs 2RF sexual activity ProAir HFA 90 mcg/actuation (albuterol sulfate) Discontinued Reason: Insurance Denied 2 puffs inhalation Q6H 30 days PRN 8.5 grams 2RF shortness of breath or wheezing NS J45.909 - Unspecified asthma, uncomplicated Coding Level of Care Code Est Pt Prev Care 18-39y(43790) Diagnoses Physical exam Z00.00 Diabetes E11.9 Mild recurrent major depression F33.0 Additional Codes VIDAL-7 Assessment Billing - VIDAL-7 Assessment Tool: VIDAL-7 Assessment 61522 ([id number]) Time Spent (min) 33
== END 2023-04-13 15:40 | disposition home or self-care (01) ==
PROVIDERS: PCP Internal Medicine; Visit Provider Internal Medicine
DX: Z00.00 Encounter for general adult medical examination without abnormal findings (principal); E11.9 Type 2 diabetes mellitus without complications; F33.0 Major depressive disorder, recurrent, mild
CPT/HCPCS: 83036; 99395

== ENCOUNTER 2023-04-15 09:58 | Outpatient (REF) | payer OTHER, SELFPAY ==
[2023-04-15 11:13] LABS: Appearance Urine Clear; Color Urine Yellow; Glucose Urine UA 500 mg/dL (Negative); Leukocyte Esterase Urine Negative (Negative); Nitrite Urine Negative (Negative); Specific Gravity - Urine >= 1.030 (1.005-1.025); Urine Blood Negative (Negative); Urine Ketones Negative (Negative); Urine Protein Trace mg/dL (Neg-Trace)
[2023-04-15 11:28] LABS: Alanine Aminotransferase 42 U/L (0-40); Albumin Level 4.3 g/dL (3.5-5.0); Alkaline Phosphatase 89 U/L (39-117); Anion Gap 9 (12-20); Aspartate Amino Transferase 18 U/L (5-37); Bilirubin Total 0.6 mg/dL (0.0-1.0); Blood Urea Nitrogen 12 mg/dL (9-16); Calcium 9.6 mg/dL (8.4-10.2); Carbon Dioxide 26 mmol/L (22-29); Chloride 106 mmol/L (96-108); Cholesterol 146 mg/dL; Estimated Glomerular Filt Rate > 60; Glucose Fasting 222 mg/dL (60-99); HDL Cholesterol 37 mg/dL; LDL Cholesterol Calculated 65 mg/dl; Potassium 4.3 mmol/L (3.3-5.1); Sodium 137 mmol/L (135-145); Triglycerides 223 mg/dL
[2023-04-15 14:16] LABS: CT PCR NOT DETECTED (Not Detect.); NG PCR NOT DETECTED (Not Detect.)
[2023-04-20 15:18] LABS: Glutamic acid decarboxylase Ab <5 IU/mL (<5)
[2023-04-23 18:03] LABS: Insulin Auto Antibody <0.4 U/mL (<0.4)
== END 2023-04-15 09:59 | disposition home or self-care (01) ==
LOC: HO.LAB 09:58
PROVIDERS: PCP Internal Medicine; Visit Provider Internal Medicine
DX: Z11.3 Encounter for screening for infections with a predominantly sexual mode of transmission (principal); E11.9 Type 2 diabetes mellitus without complications; E78.5 Hyperlipidemia, unspecified; Z20.2 Contact with and (suspected) exposure to infections with a predominantly sexual mode of transmission; E55.9 Vitamin D deficiency, unspecified
CPT/HCPCS: 0353U; 80053; 80061; 81003; 82306; 86337; 86341

== ENCOUNTER 2023-08-24 11:36 | Emergency (ER) | payer OTHER, SELFPAY ==
[2023-08-24 12:32] VITALS: BP 117/72; PULSE 93; RESP 19; TEMP 36.8; O2SAT 94; BMI 30.1
--- NOTE | 2023-08-24 12:37 | ED.GENADULT ---
HPI - General Adult General Chief complaint: Nausea/Vomiting/Diarrhea Stated complaint: vomiting and diherra Time Seen by Provider: 08/24/23 19:19 Source: patient, RN notes reviewed, old records reviewed and hairspring vibrator Mode of arrival: ambulatory Limitations: language barrier History of Present Illness HPI narrative: 32-year-old male presents for evaluation abdominal pain, nausea vomiting, diarrhea since this morning, Patient denies any fevers, chills. He states his pain is mild. Denies any recent antibiotic use or recent travel Denies any sick contacts No other complaints or concerns at this time Related Data Previous Rx's Medication Instructions Recorded pen needle, diabetic 31 gauge x #100 ea 06/29/22/ (BD Ultra-Fine Short Pen Needle) Ventolin HFA 90 mcg/actuation 2 puff inhalation Q6H PRN 04/13/23 aerosol inhaler (albuterol sulfate) shortness of breath or wheezing 30 days #8 grams blood sugar diagnostic (FreeStyle #50 ea 04/13/23 Lite Strips) blood-glucose meter (FreeStyle #1 ea 04/13/23 Lite Meter kit) escitalopram oxalate 20 mg tablet 20 mg PO DAILY 90 days #90 tabs 04/13/23 fenofibrate 54 mg tablet 54 mg PO DAILY 90 days #90 tabs 04/13/23 lancets 28 gauge (FreeStyle #100 ea 04/13/23 Lancets) nicotine 21 mg/24 hr daily 1 patch transdermal DAILY 28 days 04/13/23 transdermal patch #28 ea rizatriptan 5 mg tablet 5 mg PO Q2-4H PRN migraine 04/13/23 headache 30 days #5 tabs sildenafil 100 mg tablet 100 mg PO DAILY PRN sexual 04/13/23 activity 30 days #5 tabs cholecalciferol (vitamin D3) 50 50 mcg PO DAILY 90 days #90 caps 04/17/23 mcg (2,000 unit) capsule insulin glargine 100 unit/mL (3 28 unit (0.28 mL) subcut QAM 68 04/17/23 mL) subcutaneous pen (Lantus days #19.04 mL Solostar U-100 Insulin) ondansetron 4 mg disintegrating 4 mg PO Q8H PRN nausea and 08/24/23 tablet vomiting #20 tabs Allergies Allergy/AdvReac Type Severity Reaction Status Date / Time No Known Allergies Allergy Verified 04/13/23 15:23 [No Known Allergies*] Review of Systems Constitutional: Constitutional: Denies body ache(s), Denies chills and Denies fever(s) Cardiovascular: Cardiovascular: Denies dyspnea Respiratory: Respiratory: Denies cough and Denies dyspnea Gastrointestinal: Gastrointestinal: Reports abdominal pain, Reports diarrhea, Reports nausea and Reports vomiting Musculoskeletal: Musculoskeletal: Reports back pain PMFSH Past Medical History Medical History (Updated 08/24/23 @ 19:20 by Dylan Shaw) Microalbuminuria Insomnia VIDAL (generalized anxiety disorder) Mild recurrent major depression Screen for STD (sexually transmitted disease) Overweight (BMI 25.0-29.9) Migraine Asthma Diabetes Family History Family History Mother No problems noted. Father Diabetes Maternal Aunt Colon cancer Social History Social History Household Members: Spouse and Children Housing: House Do you presently have visiting nurse or other home services: No Alcohol intake: never Patient Tobacco Use Status: Current everyday Tobacco user Tobacco use type: Cigarette Cigarette Packs Per Day: 1 Cigarettes Per Day: 15 e-Cigarette/Vaping Use: Former Use Second Hand Smoke Exposure: No Advance Directives: No Advance Directives Information Provided: No service: No Current occupational status: employed Current occupational exposures/hazards: No Cognitive needs: No Hearing needs: No Vision needs: Yes Physical Exam ED Vital Signs: Vital Signs - 24 hr 08/24/23 12:32 Temperature 98.2 F Pulse Rate 93 Respiratory Rate 19 Blood Pressure 117/72 Pulse Oximetry 94 Oxygen Delivery Method Room Air BMI result Body Mass Index 30.1 Const General: healthy appearing, comfortable, no acute distress, alert and awake Nutritional Appearance: well nourished Orientation/consciousness: patient oriented x3 HENMT Head: Yes normocephalic and Yes atraumatic Eyes Eyelids: Yes eyelids normal Conjunctivae: conjunctivae normal Sclerae: sclerae normal Corneas: corneas normal Pupils: Equal, round and reactive pupils present EOM: EOMs intact bilaterally Neck Neck: Yes full ROM Resp Effort & Inspection: normal respiratory effort, able to speak in complete sentences and not labored GI Inspection: No distended Palpation (GI): Soft to palpation, not firm, nontender, no guarding and not rigid Auscultation: normoactive bowel sounds Skin General skin exam: no rashes or lesions noted and elasticity normal Neuro General: patient oriented x3 Cranial nerves: Yes Equal, round and reactive pupils present and Yes Bilaterally intact EOM present Cognition (Neuro): normal cognition Extrem Other: Moving all extremities well without any obvious deformities Course Course Course Narrative: RME- 32-year-old male presents for evaluation of abdominal pain, nausea vomiting. Plan for labs, UA Medical Decision Making Medical Decision Making [facility] Narrative: 32-year-old male presents for evaluation of abdominal pain, nausea vomiting, diarrhea. He appears well. He has a history of diabetes but is noncompliant with his medications. His labs are significant for hyperglycemia with no evidence of DKA. He is requesting discharge at this time. His exam is reassuring vital signs are stable. His symptoms are most likely viral in origin the only started this morning. There is no concern for sepsis for acute dehydration. Patient will be discharged with Zofran Differential Diagnosis Differential Diagnoses: The differential diagnosis associated with the presentation includes Gastroenteritis Colitis Abdominal pain Diarrhea Influenza Diverticulitis Lab Data [facility] Lab Attestation statement: I reviewed the patient's lab results. No leukocytosis or anemia. No significant electrolyte abnormalities. The patient's glucose is elevated at 398 but there is no evidence of DKA. 08/24/23 13:22 08/24/23 13:22 Labs: Lab Results 08/24/23 Range/Units 13:22 WBC 9.3 (4.8-10.8) X10*3/uL RBC 5.58 (4.60-5.80) X10*6/uL Hgb 17.3 (14.0-18.0) g/dl Hct 49.4 (42.0-52.0) % MCV 88.5 (80.0-98.0) fL MCH 31.0 (27.0-33.0) pg MCHC 35.0 (31.0-36.0) g/dl RDW 11.7 (11.0-16.0) % Plt Count 132 L (160-400) X10*3/uL MPV 11.8 (9.4-12.4) fL Immature Gran % (Auto) 0.5 H (0.0-0.4) % Neut % (Auto) 67.5 (45-73) % Lymph % (Auto) 20.4 (20-40) % Mora % (Auto) 8.3 (2-11) % Eos % (Auto) 2.8 (0-4) % Baso % (Auto) 0.5 (0-2) % Lymph # (Auto) 1.9 (1.2-4.9) X10*3/uL Mor[place] # (Auto) 0.8 (0.1-1.2) X10*3/uL Eos # (Auto) 0.3 (0.0-0.4) X10*3/uL Baso # (Auto) 0.1 (0.0-0.2) X10*3/uL Abs Immat Gran (auto) 0.05 H (0.00-0.03) X10*3/uL Absolute Neuts (auto) 6.3 (2.0-8.3) x10*3/uL Absolute Nucleated RBC 0.000 (0.0-0.012) X10*3/uL Nucleated RBC % (auto) 0.0 (0.0-0.2) /100WBC Sodium 137 (135-145) mmol/L Potassium 4.2 (3.3-5.1) mmol/L Chloride 104 (96-108) mmol/L Carbon Dioxide 25 (22-29) mmol/L Anion Gap 12 (12-20) BUN 11 (9-16) mg/dL Creatinine 0.87 (0.5-1.4) mg/dL Estim Creat Clear Calc 130.2 Estimated GFR > 60 Random Glucose 398 H* (60-115) mg/dL Calcium 9.6 (8.4-10.2) mg/dL Total Bilirubin 0.6 (0.0-1.0) mg/dL AST 14 (5-37) U/L ALT 24 (0-40) U/L Alkaline Phosphatase 114 (39-117) U/L Total Protein 7.0 (6.5-8.0) g/dL Albumin 4.2 (3.5-5.0) g/dL Lipase 21 (8-78) U/L Urine Color Yellow Urine Appearance Clear Urine pH 5.5 (5.0-9.0) Ur Specific [place] >= 1.030 H (1.005-1.025) Urine Protein Negative (Neg-Trace) mg/dL Urine Glucose (UA) >=1000 H (Negative) mg/dL Urine Ketones Negative (Negative) mg/dL Urine Blood Negative (Negative) Urine Nitrite Negative (Negative) Ur Leukocyte Esterase Negative (Negative) Urine RBC 0-2 (0-2) /HPF Urine WBC 0-5 (0-5) /HPF Ur Squamous Epith Cells 0-2 (0-2) /HPF Urine Bacteria None Seen (None Seen) Hyaline Casts 0-2 (0-2) /LPF COVID-19 ([facility]) Negative (Negative) COVID-19 Clin Com See Note Tests considered The following testing was considered but not selected: Consider CT scan abdomen pelvis, the patient is nontender on exam, has no white count is afebrile. Discharge Plan Discharge Clinical Impression: Vomiting, Acute hyperglycemia Patient Disposition: Home, Self-Care Instructions: Acute Nausea and Vomiting (ED) Additional Instructions: Your blood sugar was elevated today. It is important to follow-up with your primary doctor to make sure you are controlling your blood sugar The rest of your blood work was reassuring Take Zofran for nausea/vomiting Prescriptions: New ondansetron 4 mg tablet,disintegrating 4 mg PO Q8H PRN (Reason: nausea and vomiting) Qty: 20 0RF No Action insulin glargine [Lantus Solostar U-100 Insulin] 100 unit/mL (3 mL) insulin pen 28 unit subcut QAM 68 Days Qty: 19.04 4RF cholecalciferol (vitamin D3) 50 mcg (2,000 unit) capsule 50 mcg PO DAILY 90 Days Qty: 90 1RF (DME) pen needle, diabetic [BD Ultra-Fine Short Pen Needle] 31 gauge x 5/16 needle See Rx Instructions .Route Qty: 100 1RF Rx Instructions: Use 1 pen needle once a day rizatriptan 5 mg tablet 5 mg PO Q2-4H PRN (Reason: migraine headache) 30 Days Qty: 5 0RF Rx Instructions: do not exceed 6 doses per 24 hrs (DME) blood-glucose meter [FreeStyle Lite Meter] Kit See Rx Instructions .Route Qty: 1 0RF Rx Instructions: As directed (DME) FreeStyle Lite Strips Strip See Rx Instructions .Route Qty: 50 6RF Rx Instructions: Use 1 test strip twice a day (DME) lancets [FreeStyle Lancets] 28 gauge misc See Rx Instructions .Route Qty: 100 6RF Rx Instructions: Use 1 lancet once a day sildenafil 100 mg tablet 100 mg PO DAILY PRN (Reason: sexual activity) 30 Days Qty: 5 0RF Rx Instructions: administer 30 minutes to 4 hours before activity nicotine 21 mg/24 hr patch 24 hour 1 patch transdermal DAILY 28 Days Qty: 28 0RF albuterol sulfate [Ventolin HFA] 90 mcg/actuation HFA aerosol inhaler 2 puff inhalation Q6H PRN (Reason: shortness of breath or wheezing) 30 Days Qty: 8 1RF escitalopram oxalate 20 mg tablet 20 mg PO DAILY 90 Days Qty: 90 1RF fenofibrate 54 mg tablet 54 mg PO DAILY 90 Days Qty: 90 1RF Stand Alone Forms: Work/School Release
[2023-08-24 13:27] LABS: MANUAL DIFF FLAG NO
[2023-08-24 13:33] LABS: Appearance Urine Clear; Color Urine Yellow; Glucose Urine UA >=1000 mg/dL (Negative); Leukocyte Esterase Urine Negative (Negative); Nitrite Urine Negative (Negative); PH 5.5 (5.0-9.0); Specific Gravity - Urine >= 1.030 (1.005-1.025); UMIC TRIGGER UACC YES; Urine Blood Negative (Negative); Urine Ketones Negative (Negative); Urine Protein Negative (Neg-Trace)
[2023-08-24 13:39] LABS: Bacteria Urine None Seen (None Seen); Hyaline Casts Urine 0-2 /LPF (0-2); RBC Urine 0-2 /HPF (0-2); Squamous Epithelial Cell Urine 0-2 /HPF (0-2); WBC Urine 0-5 /HPF (0-5)
[2023-08-24 13:43] LABS: COVID-19 Test Negative (Negative); IDNOW Serial# BCCEAD1C
[2023-08-24 13:47] LABS: Alanine Aminotransferase 24 U/L (0-40); Albumin Level 4.2 g/dL (3.5-5.0); Alkaline Phosphatase 114 U/L (39-117); Anion Gap 12 (12-20); Aspartate Amino Transferase 14 U/L (5-37); Bilirubin Total 0.6 mg/dL (0.0-1.0); Blood Urea Nitrogen 11 mg/dL (9-16); Calcium 9.6 mg/dL (8.4-10.2); Carbon Dioxide 25 mmol/L (22-29); Chloride 104 mmol/L (96-108); Creatinine Clr Calc Pharmacy 130.2; Estimated Glomerular Filt Rate > 60; Lipase 21 U/L (8-78); Potassium 4.2 mmol/L (3.3-5.1); Sodium 137 mmol/L (135-145)
[2023-08-24 13:50] LABS: Glucose Random 398 mg/dL (60-115)
[2023-08-24 14:00] LABS: Basophils Absolute Auto 0.1 X10*3/uL (0.0-0.2); Basophils Percent Auto 0.5 % (0-2); Eosinophils Absolute Auto 0.3 X10*3/uL (0.0-0.4); Eosinophils Percent Auto 2.8 % (0-4); Hematocrit 49.4 % (42.0-52.0); Hemoglobin 17.3 g/dl (14.0-18.0); Imm Gran Abs Auto 0.05 X10*3/uL (0.00-0.03); Imm Gran Pct Auto 0.5 % (0.0-0.4); Lymphocytes Absolute Auto 1.9 X10*3/uL (1.2-4.9); Lymphocytes Percent Auto 20.4 % (20-40); Mean Corpuscular Volume 88.5 fL (80.0-98.0); Mean Platelet Volume 11.8 fL (9.4-12.4); Monocytes Absolute Auto 0.8 X10*3/uL (0.1-1.2); Monocytes Percent Auto 8.3 % (2-11); Neutrophils Absolute Auto 6.3 x10*3/uL (2.0-8.3); Neutrophils Percent Auto 67.5 % (45-73); Platelet Count 132 X10*3/uL (160-400); Red Blood Count 5.58 X10*6/uL (4.60-5.80); Red Cell Distribution Width 11.7 % (11.0-16.0); White Blood Count 9.3 X10*3/uL (4.8-10.8)
== END 2023-08-24 19:27 | disposition home or self-care (01) ==
PROVIDERS: Physician Assistant; Emergency Provider Internal Medicine; PCP Internal Medicine
DX: R11.2 Nausea with vomiting, unspecified (principal); E11.65 Type 2 diabetes mellitus with hyperglycemia; Z11.52 Encounter for screening for COVID-19; Z79.4 Long term (current) use of insulin; Z79.899 Other long term (current) drug therapy
CPT/HCPCS: 36415; 80053; 81001; 83690; 85025; 87635; 99282; 99283

== ENCOUNTER 2024-02-02 10:25 | Outpatient (REF) | payer OTHER, SELFPAY ==
[2024-02-02 11:27] LABS: Appearance Urine Clear; Color Urine Yellow; Glucose Urine UA >=1000 mg/dL (Negative); Leukocyte Esterase Urine Negative (Negative); Nitrite Urine Negative (Negative); PH 5.5 (5.0-9.0); Specific Gravity - Urine >= 1.030 (1.005-1.025); UMIC TRIGGER UACC YES; Urine Blood Negative (Negative); Urine Ketones Negative (Negative); Urine Protein Negative (Neg-Trace)
[2024-02-02 11:49] LABS: Bacteria Urine None Seen (None Seen); Hyaline Casts Urine 0-2 /LPF (0-2); RBC Urine 0-2 /HPF (0-2); Squamous Epithelial Cell Urine 0-2 /HPF (0-2); WBC Urine 0-5 /HPF (0-5)
[2024-02-03 09:03] LABS: HBS Num1 6.57 mIU/mL (0-7.99); HBc Num1 0.06 S/CO (0.00-0.79); HBsAGNum1 0.24 S/CO (0.00-0.99); HIV AB/AG Nonreactive (Nonreactive); HIV Num 1 0.05 S/CO (0.00-0.99); Hepatitis B Core Antibody Nonreactive (Nonreactive); Hepatitis B Surface Antigen Negative (Negative); ~HepC Num1 0.06 S/CO (0.00-0.79); ~Hepatitis B Surface Antibody NONREACTIVE (Nonreactive); ~Hepatitis C Antibody Nonreactive (Nonreactive)
[2024-02-03 09:08] LABS: Syphilis Screen Nonreactive (Nonreactive)
== END 2024-02-02 10:26 | disposition home or self-care (01) ==
LOC: HO.LAB 10:25
PROVIDERS: PCP Internal Medicine; Visit Provider Internal Medicine
DX: R30.0 Dysuria (principal); Z20.2 Contact with and (suspected) exposure to infections with a predominantly sexual mode of transmission
CPT/HCPCS: 36415; 81001; 86704; 86706; 86780; 86803; 87340; 87389

== ENCOUNTER 2024-03-31 02:31 | Emergency (ER) | payer MEDICAID, SELFPAY ==
--- NOTE | ~2024-03-31 | XR_ITS ---
EXAMINATION: XR CHEST CLINICAL INFORMATION: Asthma, cough COMPARISON: 08/29/2021 TECHNIQUE: Frontal view of the chest was obtained. FINDINGS: Lung volumes are symmetric. No focal consolidation is seen. No evidence of pneumothorax, pleural effusion, or pulmonary edema. The cardiomediastinal contour is unremarkable. No acute osseous findings are seen. XR/XR chest 1V IMPRESSION: No acute cardiopulmonary findings.
[2024-03-31 02:33] VITALS: BP 127/90; PULSE 107; RESP 20; TEMP 36.8; O2SAT 94; BMI 28.9
[2024-03-31 03:27] LABS: Influenza A PCR NEGATIVE (Negative); Influenza B PCR NEGATIVE (Negative); Resp Syncy Virus RNA Qual PCR NEGATIVE (Negative); SARS COV2 PCR INHOUSE NEGATIVE (Negative)
--- NOTE | 2024-03-31 04:51 | ED_ITS ---
HPI - Ear Problem General Chief complaint: Upper Respiratory Symptoms Stated complaint: right ear pain Time Seen by Provider: 03/31/24 04:39 Source: patient Mode of arrival: ambulatory Limitations: no limitations History of Present Illness ED Provider: radha VALENZUELA Narrative: Patient noticed pain in the right ear for last 24 hours no discharge from the ear does not get infection very often no fever no chills Related Data Previous Rx's ?Medication ?Instructions ?Recorded pen needle, diabetic 31 gauge x #100 ea 06/29/2201/19 (BD Ultra-Fine Short Pen Needle) Ventolin HFA 90 mcg/actuation 2 puff inhalation Q6H PRN 04/13/23 aerosol inhaler (albuterol sulfate) shortness of breath or wheezing 30 days #8 grams blood sugar diagnostic (FreeStyle #50 ea 04/13/23 Lite Strips) blood-glucose meter (FreeStyle #1 ea 04/13/23 Lite Meter kit) escitalopram oxalate 20 mg tablet 20 mg PO DAILY 90 days #90 tabs 04/13/23 fenofibrate 54 mg tablet 54 mg PO DAILY 90 days #90 tabs 04/13/23 lancets 28 gauge (FreeStyle #100 ea 04/13/23 Lancets) nicotine 21 mg/24 hr daily 1 patch transdermal DAILY 28 days 04/13/23 transdermal patch #28 ea rizatriptan 5 mg tablet 5 mg PO Q2-4H PRN migraine 04/13/23 headache 30 days #5 tabs sildenafil 100 mg tablet 100 mg PO DAILY PRN sexual 04/13/23 activity 30 days #5 tabs cholecalciferol (vitamin D3) 50 50 mcg PO DAILY 90 days #90 caps 04/17/23 mcg (2,000 unit) capsule insulin glargine 100 unit/mL (3 28 unit (0.28 mL) subcut QAM 68 04/17/23 mL) subcutaneous pen (Lantus days #19.04 mL Solostar U-100 Insulin) ondansetron 4 mg disintegrating 4 mg PO Q8H PRN nausea and 08/24/23 tablet vomiting #20 tabs albuterol sulfate 90 mcg/actuation 2 puff inhalation Q6H PRN 03/31/24 aerosol inhaler shortness of breath or wheezing #8.5 grams amoxicillin 875 mg-potassium 1 tab PO BID #20 tabs 03/31/24 clavulanate 125 mg tablet benzonatate 200 mg capsule 200 mg PO TID PRN cough #30 caps 03/31/24 ibuprofen 600 mg tablet 600 mg PO Q6H PRN fever or pain 03/31/24 #30 tabs prednisone 20 mg tablet 40 mg (2 x 20 mg) PO DAILY #10 tabs 03/31/24 Allergies Allergy/AdvReac Type Severity Reaction Status Date / Time No Known Allergies Allergy Verified 03/31/24 02:37 [No Known Allergies*] Review of Systems Review of Systems: Yes all other systems are reviewed and are negative [facility] Past Medical History Medical History Microalbuminuria Insomnia VIDAL (generalized anxiety disorder) Mild recurrent major depression Screen for STD (sexually transmitted disease) Overweight (BMI 25.0-29.9) Migraine Asthma Diabetes Family History Family History Mother No problems noted. Father Diabetes Maternal Aunt Colon cancer Social History Social History Household Members: Spouse and Children Housing: House Do you presently have visiting nurse or other home services: No Alcohol intake: former Patient Tobacco Use Status: Current everyday Tobacco user Tobacco use type: Cigarette Cigarette Packs Per Day: 1 Cigarettes Per Day: 15 Smoked in Last 30 Days: Yes e-Cigarette/Vaping Use: Former Use Second Hand Smoke Exposure: No Use of substances other than those prescribed or required for medical reasons: No Advance Directives: No Advance Directives Information Provided: No Do you have a plan to hurt others: No Plan service: No Current occupational status: employed Current occupational exposures/hazards: No Cognitive needs: No Hearing needs: No Vision needs: Yes Physical Exam Vital Signs: Vital Signs: Last Vital Signs Temp 98.2 F 03/31/24 05:36 Pulse 94 03/31/24 05:36 Resp 16 03/31/24 05:36 BP 124/69 03/31/24 05:36 Pulse Ox 96 03/31/24 05:36 O2 Del Method Room Air 03/31/24 05:36 BMI result Body Mass Index 28.9 Appearance: Alert. Oriented X3. No acute distress. ENT: Pharynx normal. Oral Mucosa moist right tympanic membrane inflamed with fluid behind left is normal Neck: Normal inspection. Neck supple. CVS: Normal heart rate and rhythm. Pulses normal. Respiratory: No respiratory distress. Equal air entry bilateral, prolonged expiration Abdomen: Soft and nontender. Bowel sounds are present, no mass palpable, Skin: Skin warm and dry. Normal skin color. Normal skin turgor. Extremities: No lower extremity edema. No calf tenderness Neuro: Oriented X 3. No motor deficit. Medications Administered Discontinued Medications Generic Name Dose Route Start Last Admin Trade Name Freq PRN Reason Stop Dose Admin Albuterol Sulfate 4 puff 03/31/24 04:55 03/31/24 05:05 Albuterol Sulfate 90 Mcg 8 Gm Inhaler INHALE 03/31/24 04:56 4 puff ONCE ONE Administration Amoxicillin/Clavulanate Potassium 875 mg 03/31/24 04:52 03/31/24 05:25 Amoxicillin/Potassium Clav 875 Mg Tablet PO 03/31/24 04:53 875 mg ONCE ONE Administration Guaifenesin/Codeine Phosphate 10 ml 03/31/24 04:53 03/31/24 05:34 Guaifen/Codeine Sf 200/20/10ml 10 Ml Liquid PO 03/31/24 04:54 10 ml ONCE ONE Administration Ibuprofen 600 mg 03/31/24 04:52 03/31/24 05:25 Ibuprofen 600 Mg Tablet PO 03/31/24 04:53 600 mg ONCE ONE Administration Prednisone 40 mg 03/31/24 04:53 03/31/24 05:25 Prednisone 20 Mg Tablet PO 03/31/24 04:54 40 mg ONCE ONE Administration Medical Decision Making Differential Diagnosis Differential Diagnoses: The differential diagnosis associated with the pre sentation includes Lab Data MDM Lab Attestation statement: I reviewed the patient's lab results. Labs: Lab Results 03/31/24 Range/Units 02:46 Influenza Type A (PCR) NEGATIVE (Negative) Influenza Type B (PCR) NEGATIVE (Negative) RSV RNA Qual (PCR) NEGATIVE (Negative) SARS-CoV-2 RNA (RT-PCR) NEGATIVE (Negative) Discharge Plan Discharge Clinical Impression: Otitis media, Asthma Patient Disposition: Home, Self-Care Instructions: Asthma (ED), Ear Infection (ED) Additional Instructions: Take antibiotics as prescribed Pain medication cough drops as prescribed Use inhaler Prescriptions: New benzonatate 200 mg capsule 200 mg PO TID PRN (Reason: cough) Qty: 30 0RF ibuprofen 600 mg tablet 600 mg PO Q6H PRN (Reason: fever or pain) Qty: 30 0RF albuterol sulfate 90 mcg/actuation HFA aerosol inhaler 2 puff inhalation Q6H PRN (Reason: shortness of breath or wheezing) Qty: 8.5 0RF amoxicillin-pot clavulanate 875-125 mg tablet 1 tab PO BID Qty: 20 0RF prednisone 20 mg tablet 40 mg PO DAILY Qty: 10 0RF No Action insulin glargine [Lantus Solostar U-100 Insulin] 100 unit/mL (3 mL) insulin pen 28 unit subcut QAM 68 Days Qty: 19.04 4RF cholecalciferol (vitamin D3) 50 mcg (2,000 unit) capsule 50 mcg PO DAILY 90 Days Qty: 90 1RF ondansetron 4 mg tablet,disintegrating 4 mg PO Q8H PRN (Reason: nausea and vomiting) Qty: 20 0RF (DME) pen needle, diabetic [BD Ultra-Fine Short Pen Needle] 31 gauge x 5/16 needle See Rx Instructions .Route Qty: 100 1RF Rx Instructions: Use 1 pen needle once a day rizatriptan 5 mg tablet 5 mg PO Q2-4H PRN (Reason: migraine headache) 30 Days Qty: 5 0RF Rx Instructions: do not exceed 6 doses per 24 hrs (DME) blood-glucose meter [FreeStyle Lite Meter] Kit See Rx Instructions .Route Qty: 1 0RF Rx Instructions: As directed (DME) FreeStyle Lite Strips Strip See Rx Instructions .Route Qty: 50 6RF Rx Instructions: Use 1 test strip twice a day (DME) lancets [FreeStyle Lancets] 28 gauge misc See Rx Instructions .Route Qty: 100 6RF Rx Instructions: Use 1 lancet once a day sildenafil 100 mg tablet 100 mg PO DAILY PRN (Reason: sexual activity) 30 Days Qty: 5 0RF Rx Instructions: administer 30 minutes to 4 hours before activity nicotine 21 mg/24 hr patch 24 hour 1 patch transdermal DAILY 28 Days Qty: 28 0RF albuterol sulfate [Ventolin HFA] 90 mcg/actuation HFA aerosol inhaler 2 puff inhalation Q6H PRN (Reason: shortness of breath or wheezing) 30 Days Qty: 8 1RF escitalopram oxalate 20 mg tablet 20 mg PO DAILY 90 Days Qty: 90 1RF fenofibrate 54 mg tablet 54 mg PO DAILY 90 Days Qty: 90 1RF Interventions: ED Discharge Assessment Last Done: 03/31/24 05:36 Discharge Date/Time: 03/31/24 05:36 Print Language: Upper Sorbian
[2024-03-31] MEDS: Albuterol Sulfate 90 MCG 8 GM INHALER 4 PUFF INHALE (05:05)
[2024-03-31] MEDS: predniSONE 20 MG TABLET 40 MG PO (05:25)
[2024-03-31] MEDS: Ibuprofen 600 MG TABLET PO (05:25)
[2024-03-31] MEDS: Amoxicillin/Potassium Clav 875 MG TABLET PO (05:25)
[2024-03-31 05:34] VITALS: O2SAT 97
[2024-03-31] MEDS: guaiFEN/Codeine SF 200/20/10ML 10 ML LIQUID PO (05:34)
[2024-03-31 05:36] VITALS: BP 124/69; PULSE 94; RESP 16; TEMP 36.8; O2SAT 96
== END 2024-03-31 05:36 | disposition home or self-care (01) ==
PROVIDERS: Emergency Provider Internal Medicine; PCP Internal Medicine
DX: H66.91 Otitis media, unspecified, right ear (principal); J45.909 Unspecified asthma, uncomplicated; H92.01 Otalgia, right ear; Z03.818 Encounter for observation for suspected exposure to other biological agents ruled out; F17.210 Nicotine dependence, cigarettes, uncomplicated
CPT/HCPCS: 0241U; 71045; 99284

== ENCOUNTER 2024-10-26 22:11 | Emergency (ER) | payer OTHER, SELFPAY ==
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
[2024-10-26 22:46] VITALS: BP 120/71; PULSE 100; RESP 20; TEMP 37; O2SAT 95; BMI 28.9
[2024-10-27 02:08] VITALS: BP 131/79; PULSE 16; RESP 20; TEMP 36.5; O2SAT 96
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
[2024-10-27] MEDS: Acetaminophen 325 MG TABLET 975 MG PO (06:41)
[2024-10-27] MEDS: Ibuprofen 400 MG TABLET PO (06:41)
[2024-10-27 06:58] VITALS: BP 131/79; PULSE 100; RESP 20; TEMP 36.5; O2SAT 96
== END 2024-10-27 06:59 | disposition home or self-care (01) ==
PROVIDERS: Emergency Provider Emergency Medicine Emergency Medical Services; PCP Internal Medicine
DX: S39.012A Strain of muscle, fascia and tendon of lower back, initial encounter (principal); S13.9XXA Sprain of joints and ligaments of unspecified parts of neck, initial encounter; S70.11XA Contusion of right thigh, initial encounter; S40.021A Contusion of right upper arm, initial encounter; M54.2 Cervicalgia; Y99.8 Other external cause status; V43.62XA Car passenger injured in collision with other type car in traffic accident, initial encounter; Y93.9 Activity, unspecified; Y92.488 Other paved roadways as the place of occurrence of the external cause
CPT/HCPCS: 72100; 99283

== ENCOUNTER → 2024-10-26 22:50 | Outpatient (BNV) | payer MEDICAID, SELFPAY | PROVIDERS: PCP Internal Medicine; Visit Provider Radiology Neuroradiology | DX: M54.50 Low back pain, unspecified (principal); V89.2XXA Person injured in unspecified motor-vehicle accident, traffic, initial encounter | CPT/HCPCS: 72100 ==

== ENCOUNTER 2024-11-22 10:28 | Outpatient (AMB) | payer OTHER, SELFPAY ==
[2024-11-22 10:35] VITALS: BP 114/80; PULSE 91; TEMP 36.8; O2SAT 97; BMI 27.4
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
== END 2024-11-22 11:19 | disposition home or self-care (01) ==
PROVIDERS: PCP Internal Medicine
DX: M25.511 Pain in right shoulder (principal); S33.5XXD Sprain of ligaments of lumbar spine, subsequent encounter; M54.41 Lumbago with sciatica, right side; S13.9XXD Sprain of joints and ligaments of unspecified parts of neck, subsequent encounter

== ENCOUNTER 2024-12-06 16:37 | Outpatient (AMB) | payer OTHER, SELFPAY ==
--- NOTE | 2024-12-06 16:55 | MHC.PC.OV ---
Vital Signs 12/06/24 16:56 Height 5 ft 8 in Weight 183 lb BMI 27.8 BP 112/80 Blood Pressure Location Lt brachial Position Sitting Intake Visit Reasons: eye care Cargo Worker Required: No Accompanied by: Self / Same As Patient Allergies No Known Allergies [No Known Allergies*] Allergy (Verified 12/06/24 17:15) Medication List - Last Reconciled 12/06/24 by Fallon Penny MD acetaminophen (Tylenol Extra Strength) 1,000 mg (2 x 500 mg) PO Q6H PRN albuterol sulfate 90 mcg/actuation 2 puffs inhalation Q6H PRN blood sugar diagnostic (FreeStyle Lite Strips) Use 1 test strip twice a day blood-glucose meter (FreeStyle Lite Meter kit) As directed cholecalciferol (vitamin D3) 50 mcg PO DAILY 90 days cyclobenzaprine 10 mg PO TID PRN 30 days diclofenac sodium 3% 1 appl topical BID escitalopram oxalate 20 mg PO DAILY 90 days fenofibrate 54 mg PO DAILY 90 days insulin glargine (Lantus Solostar U-100 Insulin) 28 units (0.28 mL) subcut QAM 68 days lancets (FreeStyle Lancets) Use 1 lancet once a day meloxicam 15 mg PO DAILY 90 days nebulizers (AeroEclipse II Nebulizer) As directed pen needle, diabetic (BD Ultra-Fine Short Pen Needle) Use 1 pen needle once a day rizatriptan 5 mg PO Q2-4H PRN 30 days sildenafil 100 mg PO DAILY PRN 30 days Tobacco use date assessed: 11/22/24 Dental Screening Dental Screen Date: 11/22/24 HPI HPI Comments History of Present Illness Details The patient is a 33-year-old male presenting with concerns regarding the current management of his chronic conditions and evaluations of his therapeutic regimen. He has a documented history of depression, anxiety, and insomnia, previously managed with Escitalopram, which he continues to take consistently. As part of his management of hypertriglyceridemia, he has been on Fenofibrate. The patient?s diabetes mellitus management has been complicated by the lack of glucose monitoring equipment, received only recently. A previous regimen of Albuterol has been utilized, and he continues with Tylenol and Vitamin D as supporting therapy. The patient reports a reduction in smoking habits to 3-4 cigarettes per day. Alcohol consumption has been discontinued for a substantial period. Concerns have been raised regarding the efficacy of prescribed Flexeril for back pain as current symptoms persist, indicating limited therapeutic effect and consequent sleep disturbance. Wants to be screened for STD due to having doubts in her partner of faithfulness. [facility] Medical History (Updated 12/06/24 @ 19:45 by Fallon Penny MD) Microalbuminuria Insomnia VIDAL (generalized anxiety disorder) Mild recurrent major depression Screen for STD (sexually transmitted disease) Overweight (BMI 25.0-29.9) Migraine Asthma Diabetes Surgical History History of tooth extraction Family History Mother No problems noted. Father Diabetes Maternal Aunt Colon cancer Social History (Updated 12/06/24 @ 17:20 by Fallon Penny MD) Household Members: Spouse and Children Housing: House Do you presently have visiting nurse or other home services: No Alcohol intake: former Patient Tobacco Use Status: Current everyday Tobacco user Tobacco use type: Cigarette Cigarette Packs Per Day: 1 Cigarettes Per Day: 3 e-Cigarette/Vaping Use: Former Use Second Hand Smoke Exposure: No service: No Current occupational status: employed Current occupational exposures/hazards: No Cognitive needs: No Hearing needs: No Vision needs: Yes Questionnaire PHQ-9 Over the last 2 weeks, how often have you been bothered by any of the following problems? 1. Little interest or pleasure in doing things: not at all 2. Feeling down, depressed, or hopeless: several days 3. Trouble falling or staying asleep, or sleeping too much: several days 4. Feeling tired or having little energy: not at all 5. Poor appetite or overeating: not at all 6. Feeling bad about yourself - or that you are a failure or have let yourself or your family down: not at all 7. Trouble concentrating on things, such as reading the newspaper or watching television: not at all 8. Moving or speaking so slowly that other people could have noticed. Or the opposite - being so fidgety or restless that you have been moving around a lot more than usual: not at all 9. Thoughts that you would be better off or of hurting yourself in some way: not at all Total score: 2 Depression Screening Interpretation: Positive Depression Screening Follow-up: Existing condition, In treatment and Follow-up Visit Requested Depression Screening Done: Yes 53500 - PHQ-9 Billing: Yes Source: Developed by Drs. Neo [place], Radha Tesfaye, Louie Keys and colleagues, with an educational sera from [employer]. Thrive Questionnaire Date Thrive assessed: 04/13/23 VIDAL-7 AMB Questionnaire VIDAL-7 Date VIDAL - 7 assessed: 12/06/24 Feeling nervous, anxious, or on edge: 3 = Nearly every day Not being able to stop or control worryin = Not at all Worrying too much about different things: 1 = Several days Trouble relaxin = Several days Being so restless that it is hard to sit still: 1 = Several days Becoming easily annoyed or irritable: 0 = Not at all Feeling afraid as if something awful might happen: 1 = Several days Total VIDAL-7 score (0-4 normal; 5-9 mild; 10-14 moderate; 15-21 severe): 7 Source: Developed by Drs. Neo [place], Radha Tesfaye, Louie Keys and colleagues, with an educational sera from [employer]. VIDAL-7 Assessment Billing VIDAL-7 Assessment Tool: VIDAL-7 Assessment 16811 Review of Systems Const All systems reviewed & are unremarkable except as noted in HPI and below Card Denies chest pain at rest, Denies chest pain with activity, Denies edema, Denies irregular heart rhythm, Denies claudication, Denies dyspnea, Denies dyspnea on exertion, Denies orthopnea, Denies paroxysmal nocturnal dyspnea and Denies slow heart rate Resp Denies cough, Denies dyspnea and Denies dyspnea on exertion GI Denies abdominal pain, Denies change in bowel habits, Denies excessive flatus, Denies nausea and Denies vomiting Denies urinary hesitancy, Denies urinary incontinence and Denies urinary urgency Musc Denies atrophy, Denies deformity and Denies limited range of motion Skin/Breast Denies bleeding lesions, Denies changing lesions and Denies rash Physical exam (Primary Care) Vital Signs: Last Vital Signs BP 112/80 12/06/24 16:56 BMI result Body Mass Index 27.8 Tobacco/Smoking Status: Tobacco use Status Tobacco use date assessed 11/22/24 12/06/24 17:04 Patient Tobacco Use Status Current everyday Tobacco 12/06/24 17:20 Tobacco use type Cigarette 12/06/24 17:20 e-Cigarette/Vaping Use Former Use 12/06/24 17:20 PHQ-9: PHQ-9 Score PHQ-9: Total score 2 12/06/24 17:20 Depression Screening Interpretation: Positive Depression Screening Follow-up: Existing condition, In treatment and Follow-up Visit Requested Thrive Assessment: Date of Thrive Assessment Date Thrive assessed 04/13/23 12/06/24 17:04 Resp Effort & Inspection: normal respiratory effort Auscultation: clear to auscultation bilaterally Cardio Jugular venous distension: no JVD Rate: regular rate Rhythm: regular rhythm Heart sounds: S1 normal heart sound present and S2 normal heart sound present Extrem General: Yes full ROM Results AMB Hemoglobin A1c AMB Hemoglobin A1c 10.5 % Last Edit by GIOVANNY Cummins on 12/06/24 17:06 Results Reviewed Results Reviewed: Laboratory Last Values Hgb A1c (Clinic) 10.5 % (4.0-6.0) H 12/06/24 16:51 Coding Level of Care Code Est Pt Level 4 (33861) Complex EM visit Add On G2211 Diagnoses Type 2 diabetes mellitus with hyperglycemia, with long-term current use of insulin E11.65; Z79.4 Diabetes mellitus type: type 2 Low vitamin D level R79.89 Screen for STD (sexually transmitted disease) Z11.3 Chronic migraine without aura without status migrainosus, not intractable G43.709 Migraine type: chronic migraine (15 or more days per month) without aura Status migrainosus presence: without status migrainosus Intractability: not intractable Mild persistent asthma without complication J45.30 Asthma severity: mild Asthma persistence: persistent Asthma complication type: uncomplicated Mild recurrent major depression F33.0 Additional Codes VIDAL-7 Assessment Billing - VIDAL-7 Assessment Tool: VIDAL-7 Assessment 71287 ([id number]) PHQ-9 - 00495 - PHQ-9 Billing: Yes ([id number]) Time Spent (min) 23 Assessment & Plan Assessment & Plan (1) Diabetes mellitus with hyperglycemia, with long-term current use of insulin: Code(s): E11.65 - Type 2 diabetes mellitus with hyperglycemia; Z79.4 - director long term care (current) use of insulin Category: Medical Qualifiers: Diabetes mellitus type: type 2 Qualified Code(s): E11.65 - Type 2 diabetes mellitus with hyperglycemia; Z79.4 - director long term care (current) use of insulin (2) Low vitamin D level: Code(s): R79.89 - Other specified abnormal findings of blood chemistry Category: Medical (3) Screen for STD (sexually transmitted disease): Code(s): Z11.3 - Encounter for screening for infections with a predominantly sexual mode of transmission Category: Medical (4) Migraine: Code(s): G43.909 - Migraine, unspecified, not intractable, without status migrainosus Category: Medical Qualifiers: Migraine type: chronic migraine (15 or more days per month) without aura Status migrainosus presence: without status migrainosus Intractability: not intractable Qualified Code(s): G43.709 - Chronic migraine without aura, not intractable, without status migrainosus (5) Asthma: Code(s): J45.909 - Unspecified asthma, uncomplicated Category: Medical Qualifiers: Asthma severity: mild Asthma persistence: persistent Asthma complication type: uncomplicated Qualified Code(s): J45.30 - Mild persistent asthma, uncomplicated (6) Mild recurrent major depression: Code(s): F33.0 - Major depressive disorder, recurrent, mild Category: Medical Plan The patient?s current therapeutic regimen has been reevaluated with continued use of Escitalopram and Fenofibrate, while prioritizing diabetes management with the introduction of regular blood glucose monitoring using newly acquired equipment. We will revisit the need for insulin therapy following accurate glucose level assessments. Flexeril's role in managing back pain will be reassessed for alternative solutions. Smoking reduction and alcohol cessation are endorsed and supported. Patient was informed and verbally consented to the use of an ambient scribe for clinic note documentation during this visit. In our consultation, I discussed the management of diabetes mellitus and the importance of accurate glucose monitoring. We deliberated on maintaining Escitalopram for mental health stabilization, while evaluating the effect of Flexeril for back pain, considering possible alternatives. We confirmed a laboratory follow-up in preparation for the March appointment to assess current therapy efficacy and any required adjustments. The patient was advised on continuing healthy behaviors such as smoking reduction and maintaining alcohol cessation. All treatment options were discussed, emphasizing their benefits, potential risks, and ongoing monitoring requirements. Orders: Orders Lipid Panel Today E78.5 - Hyperlipidemia, unspecified, R79.89 - Other specified abnormal findings of blood chemistry Microalbumin, Random (w Creat) Today R79.89 - Other specified abnormal findings of blood chemistry, R80.9 - Proteinuria, unspecified AMB Hemoglobin A1c Today E11.9 - Type [address] NG by PCR Today Z20.2 - Contact with and (suspected) exposure to infections with a predominantly sexual mode of transmission Syphilis Screen Today Z20.2 - Contact with and (suspected) exposure to infections with a predominantly sexual mode of transmission Vitamin D 25-OH Total Today E55.9 - Vitamin D deficiency, unspecified, R79.89 - Other specified abnormal findings of blood chemistry Comprehensive [place]. Panel Fast Today E11.9 - Type 2 diabetes mellitus without complications Referrals Ophthalmology Referral E11.9 - Type 2 diabetes mellitus without complications Medications: Changed From lancets (FreeStyle Lancets) Use 1 lancet once a day 100 ea 6RF E11.9 - Type 2 diabetes mellitus without complications To lancets (FreeStyle Lancets) Use 1 lancet twice a day 100 ea 6RF E11.9 - Type 2 diabetes mellitus without complications Refilled blood-glucose meter (FreeStyle Lite Meter kit) As directed 1 ea 0RF E11.9 - Type 2 diabetes mellitus without complications escitalopram oxalate 20 mg PO DAILY 90 tabs 1RF 90 days F33.0 - Major depressive disorder, recurrent, mild rizatriptan do not exceed 6 doses per 24 hrs 5 mg PO Q2-4H PRN 5 tabs 0RF migraine headache 30 days meloxicam 15 mg PO DAILY 90 tabs 3RF 90 days M54.50 - Low back pain, unspecified, S13.9XXA - Sprain of joints and ligaments of unspecified parts of neck, initial encounter, S33.5XXA - Sprain of ligaments of lumbar spine, initial encounter albuterol sulfate 90 mcg/actuation 2 puffs inhalation Q6H PRN 8.5 grams 0RF shortness of breath or wheezing cholecalciferol (vitamin D3) 50 mcg PO DAILY 90 caps 1RF 90 days R79.89 - Other specified abnormal findings of blood chemistry blood sugar diagnostic (FreeStyle Lite Strips) Use 1 test strip twice a day 50 ea 6RF E11.9 - Type 2 diabetes mellitus without complications fenofibrate 54 mg PO DAILY 90 tabs 1RF 90 days E78.1 - Pure hyperglyceridemia insulin glargine (Lantus Solostar U-100 Insulin) 28 units (0.28 mL) subcut QAM 19.04 mL 4RF 68 days E11.9 - Type 2 diabetes mellitus without complications Discontinued cyclobenzaprine Discontinued Reason: Patient Completed Course 10 mg PO TID 30 days PRN 30 tabs 3RF pain, muscle spasm M25.511 - Pain in right shoulder, S33.5XXA - Sprain of ligaments of lumbar spine, initial encounter Patient Instructions: - Continue with Escitalopram and Fenofibrate as prescribed. - Begin regular blood glucose monitoring twice daily with the new equipment. - Acknowledge the continued use of Albuterol as needed. - Monitor for any changes in back pain and seek alternative therapy if Flexeril remains ineffective. - Attend follow-up laboratory evaluations before the March appointment. - Maintain smoking reduction efforts and alcohol cessation. - Return for reassessment if symptoms persist or worsen, or if there is a change in your health status.
[2024-12-06 16:56] VITALS: BP 112/80; BMI 27.8
--- OUTSIDE RECORDS SUMMARY | 2024-12-06 18:08 | XMS_ITS | Clinical Summary ---
Author Organization [facility] Address [address] [place] [address] Care Team Providers Care Slab Polisher Name Role Phone Unavailable Primary Care Provider Unavailabl e Allergies No known active allergies Medications oxyCODONE-acetam inophen (Percocet) 5-325 MG tabletIndication s:Dental caries extending into pulp,Symptomatic irreversible pulpitis,Non-res torable tooth Take 1 tablet by mouth every 6 (six) hours if needed for severe pain for up to 3 doses. 3 tablet 5 Active Additional Information Patient not taking.Reported on 12/04/2024 acetaminophen (Tylenol 8 Hour) 650 MG ER tabletIndication s:Non-restorable tooth,Severe dental caries Take 1 tablet (650 mg) by mouth every 8 (eight) hours if needed for mild pain. Do not crush, chew, or split. 30 tablet 5 Active ibuprofen 400 MG tabletIndication s:Non-restorable tooth,Severe dental caries Take 1 tablet (400 mg) by mouth every 6 (six) hours if needed for moderate pain. 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 Encounters Date Type Department Care Team Description 12/04/2024 8:00 AM EDT Office Visit [facility] [address] [place] [address] Gregory Glass DDS Non-restorable tooth (Primary Dx); Severe dental caries 10/03/2024 10:30 AM EST Office Visit [facility] [address] [place] [address] Gregory Glass DDS Dental caries extending into pulp (Primary Dx); Symptomatic irreversible pulpitis; Non-restorable tooth 09/28/2024 11:30 AM EST Office Visit [facility] [address] [place] [address] Gregory Glass DDS Dental caries extending into pulp (Primary Dx); Symptomatic irreversible pulpitis from Last 3 Months Social History Tobacco Use Types Packs/Day Years Used Date Smoking Tobacco: Former Cigarettes Passive Smoke Exposure: Never Smokeless Tobacco: Former Tobacco Cessation:Counseling Given: No Alcohol Use Standard Drinks/Week Comments Never 0 (1 standard drink = 0.6 oz pur e alcohol) Sex and Gender Information Value Date Recorded Sex Assigned at Male 09/28/2024 11:02 AM EST Legal Sex Male 11:02 AM EST Gender Identity Male 09/28/2024 11:02 AM EST Sexual Orientation Straight 09/28/2024 11 :02 AM EST Last Filed Vital Signs Vital Sign Reading Time Taken Comments Blood Pressure 108/58 12/04/2024 8:15 AM EDT Pulse 104 12/04/2024 8:15 AM EDT Temperature - - Respiratory Rate - - Oxygen Saturation - - Inhaled Oxygen Concentration - - Weight - - Height - - Body Mass Index - - Plan of Treatment Health Maintenance Due Date Last Done Comments Dental Oral Exam 1988 Dental Prophylaxis 1988 Dental X-Ray: Bitewings 1988 Depression Screening 1988 Diabetes: Hemoglobin A1C 1988 HIV Screening 1988 Lipid Panel 1988 SDOH Screening 1988 Diabetes: Foot Exam 1998 Eye Exam 1998 Alcohol/Substance Use Screening 2000 Family Planning (PISQ) 12/26/2003 Hepatitis C Screening 2006 DTaP/Tdap/Td Vaccines (1 - Tdap) 12/26/2007 Diabetes: Urine Protein Screening 12/26/2007 Hepatitis B Vaccines (1 of 3 - 19+ 3-dose series) 12/26/2007 Pneumococcal Vaccine: Pediatrics (0 to 5 Years) and At-Risk Patients (6 to 49) Years) (1 of 2 - PCV) 12/26/2007 COVID-19 Vaccine (3 - 2023-2 5 season) 2024 06/23/2021, 02/11/2021 Influenza Vaccine (#1) 2024 Tobacco Screening 12/04/2025 12/04/2024 Dental X-Ray: Full Mouth 09/29/2027 09/28/2024 Zoster Vaccines (1 of 2) 2038 RSV Patients and Patients Aged 60 years or older (1 - 1-dose 75+ series) 12/26/2063 HIB Vaccines Aged Out No longer eligi ble based on patient's age to complete this topic HPV Vaccines Aged Out No longer eligi ble based on patient's age to complete this topic Hepatitis A Vaccines Aged Out No long er eligible based on patient's age to complete this topic IPV Vaccines Aged Out No longer eligi ble based on patient's age to complete this topic Meningococcal Vaccine Aged Out No sharron irma eligible based on patient's age to complete this topic RSV under 20 months Aged Out No longe r eligible based on patient's age to complete this topic Rotavirus Vaccines Aged Out No longer eligible based on patient's age to complete this topic Procedures Procedure Name Priority Date/Time Associated Diagnosis Comments CASE PRESENTATION, DETAILED AND EXTENSIVE TREATMENT PLANNING Routine 12/04/2024 8:00 AM EDT 1 EXTRACTION, ERUPTED TOOTH REQ REMOVAL OF BONE AND/OR SECTIONING OF TOOTH Routine 12/04/2024 8:00 AM EDT 32 EXTRACTION, ERUPTED TOOTH REQ REMOVAL OF BONE AND/OR SECTIONING OF TOOTH Routine 10/03/2024 10:30 AM EST CASE PRESENTATION, DETAILED AND EXTENSIVE TREATMENT PLANNING Routine 10/03/2024 10:30 AM EST PANORAMIC RADIOGRAPHIC IMAGE Routine 09/28/2024 11:30 AM EST CASE PRESENTATION, DETAILED AND EXTENSIVE TREATMENT PLANNING Routine 09/28/2024 11:30 AM EST LIMITED ORAL EVALUATION - PROBLEM FOCUSED Routine 09/28/2024 11:30 AM EST from Last 3 Months Insurance [facility] STAND ADULT
--- OUTSIDE RECORDS SUMMARY | 2024-12-06 18:08 | XMS_ITS | Encounter Summary ---
Author Organization [facility] Address [address] [place] [address] [address] [place] [address] Care Team Providers Care Carton Forming Machine Helper Name Role Phone Unavailable Primary Care Provider Unavailabl e Reason for Visit * Reason Comments Extraction Tooth 1 Encounter Details Date Type Department Care Team (Late st Contact Info) Description 12/04/2024 8:00 AM EDT Office Visit [facility] [address] [place] [address] Gregory Glass DDS [address] [place] [address] Non-restorable tooth (Primary Dx); Severe dental caries Social History Tobacco Use Types Packs/Day Years Used Date Smoking Tobacco: Former Cigarettes Passive Smoke Exposure: Never Smokeless Tobacco: Former Alcohol Use Standard Drinks/Week Comments Never 0 (1 standard drink = 0.6 oz pur e alcohol) Sex and Gender Information Value Date Recorded Sex Assigned at Male 09/28/2024 11:02 AM EST Legal Sex Male 11:02 AM EST Gender Identity Male 09/28/2024 11:02 AM EST Sexual Orientation Straight 09/28/2024 11 :02 AM EST documented as of this encounter Last Filed Vital Signs Vital Sign Reading Time Taken Comments Blood Pressure 108/58 12/04/2024 8:15 AM EDT Pulse 104 12/04/2024 8:15 AM EDT Temperature - - Respiratory Rate - - Oxygen Saturation - - Inhaled Oxygen Concentration - - Weight - - Height - - Body Mass Index - - documented in this encounter Progress Notes * Gregory Glass DDS - 12/04/2024 8:00 AM EDT Patient ID: Anthony Elizabeth is a 33 y.o. male. Time Out: Timeout Date: 12/04/24, Timeout Time: 818 (extraction of tooth number 1) Location: [facility] Tooth: Maxilla and #1 Procedure: Extraction Verified the above with patient, malt specifications control assistant, and provider. Confirmed via patient's chart, intraorally and by radiographs. Cigar Packer And Picker: not applicable Chief Complaint Patient presents with Extraction Tooth 1 Medical Hx: Vitals: Blood pressure 108/58, pulse 104. Past Medical History: Diagnosis Date Asthma Diabetes mellitus ([facility]) Medications: Outpatient Encounter Medications as of 12/04/2024 Medication Sig Dispense Refill oxyCODONE-acetaminophen (Percocet) 5-325 MG tablet Take 1 tablet by mouth every 6 (six) hours if needed for severe pain for up to 3 doses. (Patient not taking: Reported on 12/04/2024) 3 tablet 0 No facility-administered encounter medications on file as of 12/04/2024. Consent Obtained: The risks, benefits, indications, potential complications, and alternatives were explained to the patient and informed consent was obtained with good understanding. Treatment Provided: Dental procedures in this visit D7210 - EXTRACTION, ERUPTED TOOTH REQ REMOVAL OF BONE AND/OR SECTIONING OF TOOTH 1 D9450 - CASE PRESENTATION, DETAILED AND EXTENSIVE TREATMENT PLANNING Diagnosis: Severe caries non-restorable tooth Topical: 20% Benzocaine Anesthesia: 2% Lidocaine (Xylocaine) w/ 1:100,000 epinephrine Number of Cartridges: 2 Injection Type: Buccal infiltration, Palatal infiltration, and Intrapapillary injection Confirmed profound anesthesia. Pharyngeal curtain and bite block placed. Removed tooth with elevators and forceps. Apices intact. Surgical Extraction: Yes, sectioned tooth with surgical handpiece and bur Socket curetted & irrigated with sterile water. Compressed alveolar bone. Sutures: None Needed All adjacent teeth intact. Hemostasis achieved. Complications: None. Pt tolerated procedure well. Prescription sent to [facility] on file Written and verbal post-op instructions given. Patient discharged in stable condition; ambulatory, alert, and oriented. NV: F/ U as needed / EXAM Bow Maker Gift Wrapping: Danielle Mariee Dentist: Gregory Glass DDS documented in this encounter Plan of Treatment Not on file documented as of this encounter Procedures Procedure Name Priority Date/Time Associated Diagnosis Comments 1 EXTRACTION, ERUPTED TOOTH REQ REMOVAL OF BONE AND/OR SECTIONING OF TOOTH Routine 12/04/2024 8:00 AM EDT CASE PRESENTATION, DETAILED AND EXTENSIVE TREATMENT PLANNING Routine 12/04/2024 8:00 AM EDT documented in this encounter Visit Diagnoses Diagnosis Non-restorable tooth- Primary Severe dental caries documented in this encounter
--- OUTSIDE RECORDS SUMMARY | 2024-12-06 18:08 | XMS_ITS | Clinical Summary ---
Author Organization [facility] Address [address] [place] [address] Care Team Providers Care Optical Engineering Manager Name Role Phone Susie Wood [facility] Primary Care Provider [phone] Source Comments PLEASE NOTE, if this patient is a minor, it may be UNLAWFUL to discuss sensitive information that is contained in these records (such as FAMILY PLANNING, MENTAL HEALTH or SUBSTANCE ABUSE) with the minor patient's parent or other person without the patient's specific authorization.[facility] Allergies No known active allergies Medications insulin glargine (BASAGLAR KWIKPEN) 100 unit/mL (3 mL) injectionIndica tions:Hyperglyc emia Inject 30 Units into the skin nightly at bedtime 2 Pen 7 Active gemfibrozil (LOPID) 600 mg tabletIndicatio ns:Hypertriglyc eridemia Take 1 Tab by mouth 2 (two) times daily before a meal 60 Tab 3 7 Active fluocinonide (LIDEX) 0.05 % creamIndication s:Phimosis Apply topically 2 (two) times daily Apply as a thin film. 30 g 7 Active insulin lispro (HUMALOG U-100 INSULIN) 100 unit/mL injectionIndica tions:Uncontrol led type 2 diabetes mellitus with complication, with long-term current use of insulin 5units @ 70mg/dL with increments of 5u / 50mg/dL TID with meals. Max 120mL daily. 40 mL 1 8 Active insulin syringe-needle U-100 0.5 mL 31 x 3/8 Indications :Uncontrolled type 2 diabetes mellitus with complication, with long-term current use of insulin 4 (four) times daily 100 Syringe 8 Active Active Problems Problem Noted Date Diagnosed Date Phimosis 10/08/2017 Overview (10/08/2017): Saw Urology on 08-24-17 - will need circumcision. Uncontrolled type 2 diabetes mellitus with complication, with long-term current use of insulin 11/27/2016 Social History Tobacco Use Types Packs/Day Years Used Date Smoking Tobacco: Every Day Smokeless Tobacco: Current Alcohol Use Standard Drinks/Week Comments No 0 (1 standard drink = 0.6 oz pur e alcohol) Social Connections Answer Date Recorded Social Connections and Isolation 0 04/30/2019 Financial Resource Strain Answer Date R ecorded Financial Resource Strain 0 2018 Stress Answer Date Recorded Stress 0 04/30/2019 Physical Activity Answer Date Recorded Physical Activity 0 04/30/2019 Food Insecurity Answer Date Recorded Food 0 04/30/2019 Transportation Needs Answer Date Record ed Transportation 0 04/30/2019 Housing Stability Answer Date Recorded Housing 0 04/30/2019 Safety and Environment Answer Date Ponce rded Safety 0 04/30/2019 Utilities Answer Date Recorded Utilities 0 04/30/2019 Employment Answer Date Recorded Employment 0 04/30/2019 Sex and Gender Information Value Date Recorded Sex Assigned at Male 07/21/2017 7:28 AM PST Legal Sex Male 8:32 AM PST Gender Identity Male 07/21/2017 7:28 AM PST Sexual Orientation Straight 07/21/2017 7: 28 AM PST Last Filed Vital Signs Vital Sign Reading Time Taken Comments Blood Pressure 118/74 08/04/2017 3:29 PM EST Pulse 78 08/04/2017 3:29 PM EST Temperature 36.9 ??C (98.4 ??F) 08/04/2017 3:29 PM ES T Respiratory Rate 20 08/04/2017 3:29 PM EST Oxygen Saturation 96% 07/20/2017 1:57 PM EST Inhaled Oxygen Concentration - - Weight 86.2 kg (190 lb) 08/04/2017 3:29 PM EST Height 175.3 cm (5' 9 ) 08/04/2017 3:29 PM EST Body Mass Index 28.06 08/04/2017 3:29 PM EST Plan of Treatment Not on file Insurance [employer] [address] [employer] Care Teams Optical Engineering Manager Relationship Specialty Start Date End Date Susie Wood FNP [address] [place] [address] PCP - General 03/20/19
--- OUTSIDE RECORDS SUMMARY | 2024-12-06 18:08 | XMS_ITS | Clinical Summary ---
Author Organization [facility] ity Address [address] [place] [address] Care Team Providers Care Expeller Worker Name Role Phone Unavailable Primary Care Provider Unavailabl e Social History Tobacco Use Types Packs/Day Years Used Date Smoking Tobacco: Never Assessed Sex and Gender Information Value Date Recorded Sex Assigned at Not on file Legal Sex Male 2:15 PM EST Gender Identity Not on file Sexual Orientation Not on file Plan of Treatment Health Maintenance Due Date Last Done Comments DTaP,Tdap,and Td Vaccines (1 - Tdap) 12/26/2007 Hepatitis B Vaccines (1 of 3 - 19+ 3-dose series) 12/26/2007 Cholesterol Screening (Lipid Panel) 10/05/2023 Depression Screening 10/05/2023 HIV Screening 10/05/2023 Hepatitis C Screening 10/05/2023 Social Influencers of Health Screening 10/05/2023 COVID-19 Vaccine (2023-2 5 season) 2024 Influenza Vaccine (#1) 2024 HIB Vaccines Aged Out No longer eligi [...] on patient's age to complete this topic MMR Vaccines Aged Out No longer eligi ble based on patient's age to complete this topic Meningococcal ACWY Vaccine Aged Out N o longer eligible based on patient's age to complete this topic Meningococcal B Vacine Aged Out No lo nger eligible based on patient's age to complete this topic Pneumococcal Vaccine: Pediat rics (0 to 5 Years) and At-Risk Patients (6 to 64 Years) Aged Out No longer eligible b ased on patient's age to complete this topic RSV Immunization Patients Un noemí 20 months Aged Out No longer eligible b ased on patient's age to complete this topic Varicella Vaccines Aged Out No longer eligible based on patient's age to complete this topic
--- OUTSIDE RECORDS SUMMARY | 2024-12-06 18:08 | XMS_ITS | Encounter Summary ---
Author Organization [facility] Address [address] [place] [address] Care Team Providers Care Filtration Operator Name Role Phone Susie Wood INSURANCE COMMISSIONER Primary Care Provider [phone] Encounter Details Date Type Department Care Team (Late st Contact Info) Description 11/11/2016 Interim Notes [facility] [address] [place] [phone] Edwin Potter MD [id number] [place] [phone] Hyperglycemia (Primary Dx) Social History Tobacco Use Types Packs/Day Years Used Date Smoking Tobacco: Never Assessed Sex and Gender Information Value Date Recorded Sex Assigned at Male 07/21/2017 7:28 AM PST Legal Sex Male 8:32 AM PST Gender Identity Male 07/21/2017 7:28 AM PST Sexual Orientation Straight 07/21/2017 7: 28 AM PST documented as of this encounter Plan of Treatment Not on file documented as of this encounter Results * (ABNORMAL) LIPID PANEL (11/11/2016 4:25 PM EST) CHOLESTEROL 462(H) 0 - 200 mg/dL [facility] TRIGLYCERIDES 6828(H) 0 - 150 mg/dL [facility] Comment: Triglyceride value is >= 500. ??Calculated LDL is not meaningful. ??Direct LDL has been added. HDL CHOLESTEROL 44 >40 mg/dL [facility] LDL CALCULATED TNP 0 - 100 mg/dL [facility] TC-HDLC RATIO 10.5(H) 0 - 4.4 mg/dL [facility] Blood specimen (specimen) Blood / Unknown 11/11/2016 4:25 PM EST 11/11/2016 5:45 PM EST Narrative [facility] - 11/12/2016 12:23 PM EST [facility] [address] [place] [address] PT ID [id number] ORD# [id number] Edwin Potter MD LAB - BLOOD DRAW Edited Resul t - Final Performing Organization Address [facility] Co de Phone Number [address] [address], * (ABNORMAL) HEMOGLOBIN, GLYCOSYLATED (A1C) (11/11/2016 4:25 PM EST) GLYCATED HEMOGLOBIN A1C 12.7(H) <6.5 % [facility] ESTIMATED AVERAGE GLUCOSE 318 mg/dL [facility] Blood specimen (specimen) Blood / Unknown 11/11/2016 4:25 PM EST 11/11/2016 5:45 PM EST Narrative [facility] - 11/11/2016 8:41 PM EST [facility] [address] [place] [address] PT ID [id number] ORD# [id number] Edwin Potter MD LAB - BLOOD DRAW Final Result Performing Organization Address [facility] de Phone Number [address] [address], * (ABNORMAL) COMPRE METAB PANEL (11/11/2016 4:25 PM EST) GLUCOSE 259(H) 70 - 100 mg/dL [facility] Comment: SPECIMEN GROSSLY LIPEMIC Reference range applicable to fasting specimens only BUN 17 5 - 25 mg/dL [facility] CREAT 0.80 0.7 - 1.3 mg/dL [facility] GLOMERULAR FILTRATION RATE > 60 [facility] Comment: If patient is -Indian, multiply result by 1.21 Chronic Kidney Disease: < 60 ml/min/1.73 square meters Kidney Failure: < 15 ml/min/1.73 square meters SODIUM 139 133 - 145 mmol/L [facility] POTASSIUM 4.3 3.5 - 5.5 mmol/L [facility] CHLORIDE 87(L) 96 - 110 mmol/L [facility] CO2 23 21 - 32 mmol/L [facility] CALCIUM TNP 8.5 - 10.5 mg/dL [facility] Comment: Testing not performed Reason: UNABLE TO CALCULATE DUE TO LIPEMIA OF SPECIMEN 2007 TOTAL PROTEIN TNP 6.0 - 8.0 G/dL [facility] ALBUMIN 4.4 3.2 - 5.0 G/dL [facility] BILI, TOTAL 0.4 0.0 - 1.4 mg/dL [facility] SGOT 20 10 - 42 U/L [facility] SGPT 58 10 - 60 U/L [facility] ALK PHOS 144(H) 42 - 121 U/L [facility] Blood specimen (specimen) Blood / Unknown 11/11/2016 4:25 PM EST 11/11/2016 5:45 PM EST Narrative [facility] - 11/11/2016 8:11 PM EST [facility] [employer] [address] [place] [address] PT ID [id number] ORD# [id number] us Edwin Potter MD LAB - BLOOD DRAW Edited Resul t - Final [facility] [address] [place] [address], * (ABNORMAL) CBC WITH AUTO DIFF (11/11/2016 4:25 PM EST) WBC 7.6 4.8 - 10.8 x10-3/uL [facility] RBC 5.4 4.5 - 5.5 x10-6/uL [facility] HEMOGLOBIN 16.8 13.5 - 17.5 g/dL [facility] HEMATOCRIT 45.8 42 - 54 % [facility] MCV 84.5 79 - 98 fL [facility] MCH 31.0 27 - 32 pg [facility] MCHC 36.7 32 - 37 g/dL [facility] RDW 13.6 11 - 15 % [facility] PLT COUNT 215 130 - 400 x10-3/uL [facility] Comment:reviewed by slide NRBC % AUTO DIFF 13.0(H) <1 % LIF [facility] NEUT % 76.2 % [facility] LYMPH % 14.3 % [facility] MONO % 5.1 % [facility] EOS % 3.4 % [facility] BASO % 0.5 % [facility] IMMATURE GRANULOCYTES % 0.5 % [facility] NRBC # AUTO DIFF 0.99(H) <0.1 x10-3/uL [facility] ABSOLUTE NEUT 5.78 1.5 - 7.0 x10-3/uL [facility] LYMPH # 1.09 1 - 5.0 x10-3/uL [facility] MONO # 0.39 0.2 - 1.0 x10-3/uL [facility] EOS # 0.26 0 - 0.5 x10-3/uL [facility] BASO # 0.04 0 - 0.2 x10-3/uL [facility] IMMATURE GRANULOCYTES # 0.04(H) 0 - 0.03 x10-3/uL [facility] Blood specimen (specimen) Blood / Unknown 11/11/2016 4:25 PM EST 11/11/2016 5:45 PM EST [facility] - 11/11/2016 8:30 PM EST [facility] [employer] [address] [place] [address] PT ID [id number] ORD# [id number] us Edwin Potter MD LAB - BLOOD DRAW Final Result [facility] [address] [place] [address], documented in this encounter Visit Diagnoses Diagnosis Hyperglycemia- Primary Other abnormal glucose Uncontrolled type 2 diabetes mellitus without complication, with long-term current use of insulin Hyperglycemia- Primary Other abnormal glucose documented in this encounter Care Teams Filtration Operator Relationship Specialty Start Date End Date Susie Wood FNP [address] [place] [address] PCP - General 03/20/19 documented as of this encounter
--- OUTSIDE RECORDS SUMMARY | 2024-12-06 18:08 | XMS_ITS | Data Portability ---
Author Organization [facility], [address] Address [address] [place] [address] Care Team Providers Care Landscape Contractor Name Role Phone FLORENTIN KIM Primary Care Provider Assessment No assessment recorded. Plan of Treatment Reminders Order Date Submit Date Provider Last Modified By Organization Details Last Modified Time Details Appointments None recorded. Lab microorgani sm identificat ion, unspecified specimen 2022 023 [place] [facility], [address] [place] [address], [place], [address], 3 16:06:38 Referral None recorded. Procedures None recorded. Surgeries None recorded. Imaging None recorded. Medication Orders clindamycin HCl 300 mg capsule 2022 023 [id number], [address] [place], [address], 3 13:38:03 lidocaine 5 % topical ointment 2022 023 [facility] #[id number], [address] [place], [address], 3 13:38:05 ibuprofen 800 mg tablet 2022 023 [facility] #[id number], [address] [place], [address], 3 13:38:04 Patient TargetsNo targets recorded. Patient Instructions Encounter Date Encounter Id Patient Instructions Last Modified By Organization Details Last Modified Time 12/01/2022 [id number] skin abscess: ca re instructions [email or web address] Not available 12/01/2022 13:38:01 Based on exam an d presentation you are being diagnosed with a skin abscess. I am going to prescribe you and antibiotic to cover this infection. Please be sure to complete the full course of this antibiotic to prevent antibiotic resistance. I recommend taking a Probiotic with this course of antibiotics to help to re colonize with good bacteria. Antibiotics will typically take 4-5 days to start to work with symptom improvement. The following are my other recommendations to help with symptoms and is important for this diagnosis: 1. Put warm compresses on the affected area regularly - this will help the infection come to the surface. 2. No creams or lotions on the affected area this includes neosporin (except what was prescribe 3. Try not to squeeze the area - but you can apply light pressure to the area after you have applied a warm compress for about 15 minutes. 4. Ok for Ibuprofen or Tylenol for the pain if you are not allergic. Do not take Ibuprofen or any NSAID if you are on a blood thinner. This abscess is open and draining on its own. A Culture was sent to the lab we will call you with those results and change medication if necessary. I would be seen again if you develop any of the following symptoms. 1. Fever > 101.0 2. Worsening Pain 3. Increased swelling 4. Increased Redness Thank you for using [facility] today, please feel free to contact our office if you have any questions or concerns. [email or web address] Not available 12/01/2022 13:37:27 Reason for Referral None Reported. Results Created Date Observation Date Name Description Value Unit Range Abnormal Flag Note LastModifiedBy Organization Detail LastModifiedTime 12/02/1912/04/2022 AEROB IC BACTE RIAL CULTU RE aerobic bacterial culture FINAL REPORT abnormal Not Available [facility] ([facility]) [address] [facility], [place], [address], 12/04/2022 12:06:14 12/02/1912/04/2022 AEROB IC BACTE RIAL CULTU RE result 1 STAPHY LOCOCC US AUREUS abnormal Based on susce ptibi lity to oxaci llin this isola te would be susce ptibl e to: *Peni cilli nase- stabl e penic illin s, such as: Cloxa cilli n, Diclo xacil rosa m, Nafci llin *Beta -lact am combi natio n agent s, such as: Amoxi cilli n-cla vulan ic acid, Ampic illin -sulb actam , Piper acill in-ta zobac brandt *Oral cephe ms, such as: Cefac myrna, Cefdi ab, Cefpo doxim e, Cefpr ozil, Cefur oxime , Cepha lexin , Lorac arbef *Pare ntera l cephe ms, such as: Cefaz steven, Cefep deny, Cefot axime , Cefot carmen, Cefta rolin e, Cefti zoxim e, Ceftr iaxon e, Cefur oxime *Carb apene ms, such as: Dorip enem, Ertap enem, Imipe nem, Merop enem Scant growt h Not Available [facility] ([facility]) [address] [place], [address], 12/04/2022 12:06:14 12/02/19 23 12/04/2022 AEROB IC BACTE RIAL CULTU RE antimicrobia l susceptibili ty COMMEN T S = Susce ptibl e; I = Inter media te; R = Resis tant P = Posit anisa; N = Negat anisa MICS are expre ssed in micro grams per mL Antib iotic RSLT# 1 RSLT# 2 RSLT# 3 RSLT# 4 Cipro floxa julianna S Clind amyci n S Eryth romyc in R Genta micin S Levof loxac in S Linez olid S Moxif loxac in S Oxaci llin S Penic illin R Quinu prist in/Da lfopr istin S Rifam pin S Tetra cycli ne S Trime thopr im/Long lfa S Vanco mycin S Not Available [facility] ([facility]) [address] [place], [address], 12/04/2022 12:06:14 Result Notes None recorded. Problems Name Problem SNOMED Code Status Onset Date Resolution Date Notes Provider Name and Address Organization Details Recorded Time Diabetes mellitus 14179707 Active 023 STEPHANIE Sanders - [facility] 3 12:39:27 Asthma 571134653 Active 023 Josiane STEPHANIE Fuentes [facility] 3 12:39:31 Problem Notes None recorded. Medical Equipment None Reported. Allergies No known drug allergies Medications Name Sig Start Date Stop Date Status Note LastModified by Organization Details LastModified Time clindamycin HCl 300 mg capsule Take 1 capsule 3 times a day by oral route for 10 days. active Not Available Not Available No t Available sildenafil 50 mg tablet TAKE ONE TABLET BY MOUTH DAILY NEEDED FOR SEXUAL ACTIVITY FOR 14 DAYS. TAKE 30 MINUTES TO 4 HOURS BEFORE SEXUAL ACTIVITY. active Not Available Not Available No t Available ibuprofen 800 mg tablet Take 1 tablet 3 times a day by oral route. active Not Available Not Available No t Available sumatriptan 25 mg tablet TAKE 1 TABLET BY MOUTH EVERY 2-4 HOURS NEEDED FOR MIGRAINES, MAX 8 DOSES IN 24 HRS active Not Available Not Available No t Available cephalexin 500 mg capsule TAKE 1 CAPSULE BY MOUTH THREE TIMES A DAY FOR 10 DAYS active Not Available Not Available Not Available rizatriptan 5 mg tablet PLEASE SEE ATTACHED FOR DETAILED DIRECTIONS active Not Available Not Available N ot Available escitalopram 20 mg tablet TAKE 1 TABLET BY MOUTH EVERY DAY active Not Available Not Available No t Available topiramate 50 mg tablet TAKE 1 TABLET BY MOUTH EVERYDAY AT BEDTIME active Not Available Not Available No t Available BD Ultra-Fine Short Pen Needle 31 gauge x 5/16 USE 1 PEN NEEDLE ONCE A DAY active Not Available Not Available No t Available Lantus Solostar U-100 Insulin 100 unit/mL (3 mL) subcutaneous pen INJECT 22 UNIT (0.22 ML) SUBCUTANEOU SLY EVERY MORNING FOR 68 DAYS active Not Available Not Available No t Available Lantus Solostar U-100 Insulin active Not Available Not Available Not Available cholecalcife rol (vitamin D3) 50 mcg (2,000 unit) capsule TAKE 1 CAPSULE BY MOUTH EVERY DAY active Not Available Not Available No t Available fenofibrate 54 mg tablet TAKE 1 TABLET BY MOUTH EVERY DAY active Not Available Not Available No t Available lidocaine 5 % topical ointment Apply 1 application every 6 hours by topical route. 2022 active Not Available Not Available Not Avai lable Vitals Date Recorded Body height Body mass index (BMI) Body weight Pain severity - 0-10 verbal numeric rating [Score] - Reported Oxygen saturation Oxygen saturation in Arterial blood by Pulse oximetry Heart rate Respiratory rate Body temperature Systolic blood pressure Diastolic blood pressure Provider Name and Address Organization Details Last Updated DateTime 172.72 cm 24 kg/m2 19006.5 9 g 10 97 % 97 % 107 /min 18 /min 98.4 [degF] 129 mm[Hg] 75 mm[Hg] Josiane Sun [facility] 12:42:25 Social History Question Answer Notes LastModified by Organizat ion Details LastModified Time Tobacco Smoking Status Current Every Day Smoker STEPHANIE [facility] 12/01/2022 12:40:31 What Is Your Level Of Alcohol Consumption? Occasional Information not available 12/01/2022 How Many Times Per Week Do You Consume Alcohol? Less Than 1 Time Per Week Information not available 12/01/2022 How Much Tobacco Do You Smoke? 1 PPD Information not available 12/01/2022 Do You Use Any Illicit Or Recreational Drugs? No Information not available 12/01/2022 Have You Recently Traveled Abroad? No Information not available 12/01/2022 Do You Or Have You Ever Used Any Other Forms Of Tobacco Or Nicotine? No Information not available 12/01/2022 Sex: Unknown Functional Status None recorded. Mental Status None recorded. Family History Nothing Reported. Medical History No medical history recorded. Past Encounters Encounter ID Performer Location Encounter Start Date Encounter Closed Date Diagnosis/Indication Diagnosis SNOMED-CT Code Diagnosis ICD10 Code Diagnosis Note [id number] STEPHANIE WEN [address] [address] [place] [address] 12/01/2022 12:27:55 12/01/2022 13:40:36 Abscess of scalp 54433992 L02.811 Health Concerns Section Related Observation LastModified by Organization Detai ls LastModified Time None Recorded Concern Status LastModified by Organization Details LastModified Time None Recorded Advance Directives Directive None Recorded Payers Encounter Date Sequence Insurance Name Policy Number Policy Maher Covered Member ID Maher Member ID Guarantor Name 12/01/2022 1 [employer] - HEALTH NET PLAN (MEDICAID HMO) JANETT Elizabeth [id number] Anthony Elizabeth Notes Date Note Type Note Provider Name and Address Organization Details Recorded Time 12/01/2022 text/html AbscessReported bypatient.Location:sc alp Onset/Timing:gradual Quality:painful;tende rness;swelling;rednes s;drainage Severity:worsening Associated Symptoms:no fever; no headacheNotes:The patient reports no history of abscess in this area, but it looks like patient suffers from chronic clogged glands in the back of the scalp. This has worsened over the last few days. Draining, but the swelling and pain is not going away. yellow discharge. No fever. STEPHANIE WEN [address] [place], [address], [place] - [facility] 12/01/2022 13:41:11
== END 2024-12-06 17:20 | disposition home or self-care (01) ==
LOC: HO.HMCH 16:38
PROVIDERS: PCP Internal Medicine; Visit Provider Internal Medicine
DX: E11.65 Type 2 diabetes mellitus with hyperglycemia (principal); Z79.4 Long term (current) use of insulin; F33.0 Major depressive disorder, recurrent, mild; R79.89 Other specified abnormal findings of blood chemistry; Z11.3 Encounter for screening for infections with a predominantly sexual mode of transmission; G43.709 Chronic migraine without aura, not intractable, without status migrainosus; J45.30 Mild persistent asthma, uncomplicated

== ENCOUNTER → 2024-12-06 16:37 | Outpatient (BNVA) | payer OTHER, SELFPAY | PROVIDERS: PCP Internal Medicine; Visit Provider Internal Medicine | DX: E11.65 Type 2 diabetes mellitus with hyperglycemia (principal); R79.89 Other specified abnormal findings of blood chemistry; G43.709 Chronic migraine without aura, not intractable, without status migrainosus; J45.30 Mild persistent asthma, uncomplicated; F33.0 Major depressive disorder, recurrent, mild; Z79.4 Long term (current) use of insulin | CPT/HCPCS: 83036; 96127; 99212 ==

== ENCOUNTER 2025-01-01 08:13 | Outpatient (REF) | payer OTHER, SELFPAY ==
--- OUTSIDE RECORDS SUMMARY | 2025-01-01 08:27 | XMS_ITS | Clinical Summary ---
Author Organization [facility] Address [address] [place] [address] Care Team Providers Care Process Expert Name Role Phone Susie Wood [facility] Primary Care Provider [phone] Source Comments PLEASE NOTE, if this patient [...] on file Insurance [employer] [address] [employer] Care Teams Process Expert Relationship Specialty Start Date End Date Susie Wood FNP [address] [place] [address] PCP - General 03/20/19
--- OUTSIDE RECORDS SUMMARY | 2025-01-01 08:27 | XMS_ITS | Encounter Summary ---
Author Organization [facility] Address [address] [place] [address] Care Team Providers Care Deliver Driver Name Role Phone Susie Wood OIL LEASE OPERATOR Primary Care Provider [phone] Encounter Details Date Type Department Care Team (Late st Contact Info) Description 11/11/2016 Interim Notes [facility] [address] [place] [phone] Edwin Potter MD [phone] [place] [phone] Hyperglycemia (Primary Dx) Social History Tobacco Use [...] EST) CHOLESTEROL 462(H) 0 - 200 mg/dL [facility] TRIGLYCERIDES 6828(H) 0 - 150 mg/dL [facility] Comment: Triglyceride value is >= 500. ??Calculated LDL is not meaningful. ??Direct LDL has been added. HDL CHOLESTEROL 44 >40 mg/dL [facility] LDL CALCULATED TNP 0 - 100 mg/dL [facility] TC-HDLC RATIO 10.5(H) 0 - 4.4 mg/dL [facility] Blood specimen (specimen) Blood / Unknown 11/11/2016 4:25 PM EST 11/11/2016 5:45 PM EST Narrative [facility] - 11/12/2016 12:23 PM EST [employer] [address] [place] [address] PT ID [id number] ORD# [id number] Edwin Potter MD LAB - BLOOD DRAW Edited Resul t - Final Performing Organization Address [facility] Co de Phone Number [address] [address], * (ABNORMAL) HEMOGLOBIN, GLYCOSYLATED (A1C) (11/11/2016 4:25 PM EST) GLYCATED HEMOGLOBIN A1C 12.7(H) <6.5 % [facility] ESTIMATED AVERAGE GLUCOSE 318 mg/dL [facility] Blood specimen (specimen) Blood / Unknown 11/11/2016 4:25 PM EST 11/11/2016 5:45 PM EST Narrative [facility] - 11/11/2016 8:41 PM EST [facility] [address] [place] [address] PT ID [id number] ORD# [id number] Edwin Potter MD LAB - BLOOD DRAW Final Result Performing Organization Address [facility] de Phone Number [address] [address], * (ABNORMAL) COMPRE METAB PANEL (11/11/2016 4:25 PM EST) GLUCOSE 259(H) 70 - 100 mg/dL [facility] Comment: SPECIMEN GROSSLY LIPEMIC Reference range applicable to fasting specimens only BUN 17 5 - 25 mg/dL [facility] CREAT 0.80 0.7 - 1.3 mg/dL [facility] GLOMERULAR FILTRATION RATE > 60 [facility] Comment: If patient is -Dominican, multiply result by 1.21 Chronic Kidney Disease: < 60 ml/min/1.73 square meters Kidney Failure: < 15 ml/min/1.73 square meters SODIUM 139 133 - 145 mmol/L [facility] POTASSIUM 4.3 3.5 - 5.5 mmol/L [facility] CHLORIDE 87(L) 96 - 110 mmol/L [facility] CO2 23 21 - 32 mmol/L [facility] CALCIUM TNP 8.5 - 10.5 mg/dL [facility] Comment: Testing not performed Reason: UNABLE TO CALCULATE DUE TO LIPEMIA OF SPECIMEN 2007 TOTAL PROTEIN TNP 6.0 - 8.0 G/dL [facility] ALBUMIN 4.4 3.2 - 5.0 G/dL [facility] BILI, TOTAL 0.4 0.0 - 1.4 mg/dL [facility] SGOT 20 10 - 42 U/L [facility] SGPT 58 10 - 60 U/L [facility] ALK PHOS 144(H) 42 - 121 U/L [facility] Blood specimen (specimen) Blood / Unknown 11/11/2016 4:25 PM EST 11/11/2016 5:45 PM EST Narrative [facility] - 11/11/2016 8:11 PM EST [facility] [address] [place] [address] PT ID [id number] ORD# [id number] us Edwin Potter MD LAB - BLOOD DRAW Edited Resul t - Final [facility] [address] [place] [address], * (ABNORMAL) CBC WITH AUTO DIFF (11/11/2016 4:25 PM EST) WBC 7.6 4.8 - 10.8 x10-3/uL [facility] RBC 5.4 4.5 - 5.5 x10-6/uL [facility] HEMOGLOBIN 16.8 13.5 - 17.5 g/dL [facility] HEMATOCRIT 45.8 42 - 54 % [facility] MCV 84.5 79 - 98 fL [facility] MCH 31.0 27 - 32 pg [facility] MCHC 36.7 32 - 37 g/dL [facility] RDW 13.6 11 - 15 % [facility] PLT COUNT 215 130 - 400 x10-3/uL [facility] Comment:reviewed by slide NRBC % AUTO DIFF 13.0(H) <1 % LIF [facility] NEUT % 76.2 % [facility] LYMPH % 14.3 % [facility] MONO % 5.1 % [facility] EOS % 3.4 % [facility] BASO % 0.5 % [facility] IMMATURE GRANULOCYTES % 0.5 % [facility] NRBC # AUTO DIFF 0.99(H) <0.1 x10-3/uL [facility] ABSOLUTE NEUT 5.78 1.5 - 7.0 x10-3/uL [facility] LYMPH # 1.09 1 - 5.0 x10-3/uL [facility] MONO # 0.39 0.2 - 1.0 x10-3/uL [facility] EOS # 0.26 0 - 0.5 x10-3/uL [facility] BASO # 0.04 0 - 0.2 x10-3/uL [facility] IMMATURE GRANULOCYTES # 0.04(H) 0 - 0.03 x10-3/uL [facility] Blood specimen (specimen) Blood / Unknown 11/11/2016 4:25 PM EST 11/11/2016 5:45 PM EST [facility] - 11/11/2016 8:30 PM EST [facility] [address] [place] [address] PT ID [id number] ORD# [id number] us Edwin Potter MD LAB - BLOOD DRAW Final Result [facility] [address] [place] [address], documented in this encounter Visit Diagnoses Diagnosis Hyperglycemia- Primary Other abnormal glucose Uncontrolled type 2 diabetes mellitus without complication, with long-term current use of insulin Hyperglycemia- Primary Other abnormal glucose documented in this encounter Care Teams Deliver Driver Relationship Specialty Start Date End Date Susie Wood FNP [address] [place] [id number] PCP - General 03/20/19 documented as of this encounter
--- OUTSIDE RECORDS SUMMARY | 2025-01-01 08:27 | XMS_ITS | Encounter Summary ---
Author Organization [facility] Address [address] [place] [address] [address] [place] [address] Care Team Providers Care Art Education Professor Name Role Phone Unavailable Primary Care Provider Unavailabl e Reason for Visit * Reason Comments Med Refill Encounter Details Date Type Department Care Team (Late st Contact Info) Description 12/07/2024 Refill [facility] [address] [place] [address] Gregory Glass DDS [address] [place], [place] [phone] Dental caries extending into pulp; Symptomatic irreversible pulpitis Social History Tobacco Use Types Packs/Day Years [...] AM EST documented as of this encounter Plan of Treatment Upcoming Encounters Date Type Department Care Team (Late st Contact Info) Description 02/19/2025 10:00 AM EDT Office Visit [facility] [address] [place] [address] Isha Leon [address] [place] [address] [phone] documented as of this encounter Visit Diagnoses Diagnosis Dental caries extending into pulp Symptomatic irreversible pulpitis documented in this encounter
--- OUTSIDE RECORDS SUMMARY | 2025-01-01 08:27 | XMS_ITS | Encounter Summary ---
Author Organization [facility] Address [address] [facility] [address] [place] [address] Care Team Providers Care Gear Shaver Set Up Operator Name Role Phone Unavailable Primary Care Provider Unavailabl e Reason for Visit * Reason Comments Routine Cleaning Dental Exam X-rays Perio chart Encounter Details Date Type Department Care Team (Late st Contact Info) Description 12/27/2024 10:00 AM EDT Office Visit [facility] [address] [place] [address] Anne-Marie Husain [address] [place] [address] Halitosis (Primary Dx); Gingival bleeding; Acute gingival inflammation; Periodontal disease; Dental calculus Social History Tobacco Use Types Packs/Day Years [...] Sign Reading Time Taken Comments Blood Pressure 124/70 12/27/2024 10:03 AM EDT Pulse - - Temperature - - Respiratory Rate - - Oxygen Saturation - - Inhaled Oxygen Concentration - - Weight - - Height - - Body Mass Index - - documented in this encounter Progress Notes * Anne-Marie Husain - 12/27/2024 10:00 AM EDT Comp exam, x-ray, perio chart prophy Patient ID: Anthony Elizabeth is a 34 y.o. male. Time Out: Timeout Date: 12/27/24, Timeout Time: 1004 (x-rays, Comp exam, prophy, perio chart) Location: [facility] Tooth: Maxilla and Mandible Procedure: Exam, X-rays, Prophylaxis, and Perio chart Verified the above with patient, assistant surveyor, and provider. Confirmed via patient's chart, intraorally and by radiographs. Computer Networking Instructor: not applicable Medical Hx: Vitals: Blood pressure 124/70. Medications, Med Hx reviewed with patient and updated in chart. Treatment Provided Dental procedures in this visit D1330 - ORAL HYGIENE INSTRUCTIONS (Completed) Service provider: Anne-Marie Keller provider: Gregory Glass DDS D0274 - BITEWINGS - 4 RADIOGRAPHIC IMAGES (Completed) Service provider: Anne-Marie Husain [place] provider: Gregory Glass DDS D0220 - INTRAORAL - PERIAPICAL FIRST RADIOGRAPHIC IMAGE (Completed) Service provider: Anne-Marie Keller provider: Gregory Glass DDS D0230 - INTRAORAL - PERIAPICAL EACH ADDITIONAL RADIOGRAPHIC IMAGE (Completed) Service provider: Anne-Marie Keller provider: Gregory Glass DDS D9450 - CASE PRESENTATION, DETAILED AND EXTENSIVE TREATMENT PLANNING (Completed) Service provider: Anne-Marie Keller provider: Gregory Glass DDS Instruments Used: X-ray sensor, Benzocaine, Periodontal probe. Pt has Panorex from 09/28/24. Took 4 BWXs, 2 Pas to complement the panorex, Per Dr. Glass's request. I took the x-rays for Dr. Glass to do exam. I saw that pt has bone loss with recession and heavy calculus and plaque. Before I started to do the perio chart. I explained to Pt that he has periodontitis and explained the bone loss and that he will need SRP (deep scaling). Pt let me know that the probing was uncomfortable and I gave him topical anesthetic to do the probing. Half way through the perio charting, Pt said in Georgian: Forget about this. I don't want this. He then proceeded to get up from the chair. I asked him if he would sign a refusal form, He said NO and Patient left the operatory. Due to Pt leaving the operatory, Dr. Glass did not have the chance to do the exam. Oral Cancer Screening: No lesions Head/Neck Exam: No Lesions Calculus: Heavy, Generalized, Subgingival, and supragingival Plaque: Heavy and Generalized with food impactions., Halitosis Stain: Moderate Bleeding: Light Gingiva: Perio Charting Completed, Bleeding on probing, Recession- localized, and Edematous OH: Poor Perio Chart: partially completed due to Pt did not allowed me to completed and left operatory. Oral hygiene instructions provided to patient including brushing technique and flossing. Recommendations: [place] two times daily, modified govea technique, Floss daily, Electric toothbrush, Soft bristle toothbrush, [place]allo Tongue, Anti-sensitivity toothpaste Recall Frequency: none NV: none for now, unless Pt decides to come back. Hygienist: Anne-Marie Husain RDH documented in this encounter Plan of Treatment Upcoming Encounters Date Type Department Care Team (Late st Contact Info) Description 02/19/2025 10:00 AM EDT Office Visit [facility] [address] [place], [place] [phone] Isha Leon [address] [place] [address] [phone] documented as of this encounter Procedures Procedure Name Priority Date/Time Associated Diagnosis Comments ORAL HYGIENE INSTRUCTIONS Routine 12/27/2024 10:00 AM EDT Halitosis Gingival bleeding Acute gingival inflammation Periodontal disease Dental calculus INTRAORAL - PERIAPICAL FIRST RADIOGRAPHIC IMAGE Routine 12/27/2024 10:00 AM EDT Halitosis Gingival bleeding Acute gingival inflammation Periodontal disease Dental calculus INTRAORAL - PERIAPICAL EACH ADDITIONAL RADIOGRAPHIC IMAGE Routine 12/27/2024 10:00 AM EDT Halitosis Gingival bleeding Acute gingival inflammation Periodontal disease Dental calculus CASE PRESENTATION, DETAILED AND EXTENSIVE TREATMENT PLANNING Routine 12/27/2024 10:00 AM EDT Halitosis Gingival bleeding Acute gingival inflammation Periodontal disease Dental calculus BITEWINGS - 4 RADIOGRAPHIC IMAGES Routine 12/27/2024 10:00 AM EDT Halitosis Gingival bleeding Acute gingival inflammation Periodontal disease Dental calculus documented in this encounter Visit Diagnoses Diagnosis Halitosis- Primary Other symptoms involving head and neck Gingival bleeding Other specified periodontal diseases Acute gingival inflammation Acute gingivitis, plaque induced Periodontal disease Unspecified gingival and periodontal disease Dental calculus Accretions on teeth documented in this encounter
--- OUTSIDE RECORDS SUMMARY | 2025-01-01 08:27 | XMS_ITS | Clinical Summary ---
Author Organization [employer] [facility] ity Address [address] [place] [address] Care Team Providers Care Dental Laboratory Assistant Name Role Phone Unavailable Primary Care Provider [...] Vaccine (2023-2 5 season) 2024 Influenza Vaccine (Season Ended) 2025 HIB Vaccines Aged Out No longer eligi [...] age to complete this topic Meningococcal B Vaccine Aged Out No l onger eligible based on patient's age to complete [...]
--- OUTSIDE RECORDS SUMMARY | 2025-01-01 08:27 | XMS_ITS | Clinical Summary ---
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 Encounters Date Type Department Care Team Description 12/27/2024 10:00 AM EDT Office Visit [facility] [address] [place] [address] Anne-Marie Husain Halitosis (Primary Dx); Gingival bleeding; Acute gingival inflammation; Periodontal disease; Dental calculus 12/07/2024 Refill [facility] [address] [place] [address] Gregory Glass DDS Dental caries extending into pulp; Symptomatic irreversible pulpitis 12/04/2024 8:00 AM EDT Office Visit [facility] [address] [place] [address] Gregory Glass DDS Non-restorable tooth (Primary Dx); Severe dental caries 10/03/2024 10:30 AM EST Office Visit [facility] [address] [place] [address] Gregory Glass DDS Dental caries extending into pulp (Primary Dx); Symptomatic irreversible pulpitis; Non-restorable tooth from Last 3 Months Social History Tobacco [...] Pressure 124/70 12/27/2024 10:03 AM EDT Pulse 104 12/04/2024 8:15 AM EDT Temperature - - Respiratory Rate - - Oxygen Saturation - - Inhaled Oxygen Concentration - - Weight - - Height - - Body Mass Index - - Plan of Treatment Upcoming Encounters Date Type Department Care Team (Late st Contact Info) Description 02/19/2025 10:00 AM EDT Office Visit [facility] [address] [place] [address] Isha Leon [address] [place] [address] Health Maintenance Due Date Last Done Comments Dental Oral Exam 1988 Dental Prophylaxis 1988 Depression Screening 1988 Diabetes: Hemoglobin A1C [...] 02/11/2021 Influenza Vaccine (#1) 2024 Tobacco Screening 12/27/2025 12/27/2024 Dental X-Ray: Bitewings 12/28/2025 12/27/2024 Dental X-Ray: Full Mouth 09/29/2027 09/28/2024 Zoster [...] Acute gingival inflammation Periodontal disease Dental calculus ORAL HYGIENE INSTRUCTIONS Routine 12/27/2024 10:00 AM [...] RADIOGRAPHIC IMAGE Routine 09/28/2024 11:30 AM EST from Last 3 Months or Most Recently Relevant to Health Maintenance Insurance [place] AD[place]
[2025-01-01 09:54] LABS: Syphilis Screen Nonreactive (Nonreactive)
[2025-01-01 10:00] LABS: Alanine Aminotransferase 38 U/L (0-40); Albumin Level 4.4 g/dL (3.5-5.0); Alkaline Phosphatase 119 U/L (39-117); Anion Gap 14 (12-20); Aspartate Amino Transferase 20 U/L (5-37); Bilirubin Total 0.5 mg/dL (0.0-1.0); Blood Urea Nitrogen 16 mg/dL (9-16); Calcium 9.3 mg/dL (8.4-10.2); Carbon Dioxide 22 mmol/L (22-29); Chloride 103 mmol/L (96-108); Cholesterol 218 mg/dL (<200); Estimated Glomerular Filt Rate > 60; Glucose Fasting 355 mg/dL (60-99); HDL Cholesterol 34 mg/dL (>40); Potassium 4.3 mmol/L (3.3-5.1); Sodium 135 mmol/L (135-145); Total Protein 7.6 g/dL (6.5-8.0); Triglycerides 1064 mg/dL (<150)
[2025-01-01 10:01] LABS: HBS Num1 5.37 mIU/mL (0-7.99); HBc Num1 0.06 S/CO (0.00-0.79); HBsAGNum1 0.31 S/CO (0.00-0.99); Hepatitis B Core Antibody Nonreactive (Nonreactive); Hepatitis B Surface Antigen Negative (Negative); ~HepC Num1 0.06 S/CO (0.00-0.79); ~Hepatitis B Surface Antibody NONREACTIVE (Nonreactive); ~Hepatitis C Antibody Nonreactive (Nonreactive)
[2025-01-01 10:15] LABS: Vitamin D 25-OH Total 12.7 ng/mL (>30)
[2025-01-01 10:58] LABS: Creatinine Urine 85.21 mg/dL; Microalbum/Creatinine Ratio Ur 92.7 ug/mg cr (<30)
[2025-01-01 12:07] LABS: CT PCR NOT DETECTED (Not Detect.); NG PCR NOT DETECTED (Not Detect.)
[2025-01-02 07:57] LABS: Hepatitis A Antibody IgM 0.11 Index (0-0.79); ~Hepatitis A Antibody IgM Nonreactive (Nonreactive)
[2025-01-02 09:54] LABS: Herpes Simplex Type 1 IgG <0.90 index
== END 2025-01-01 08:14 | disposition home or self-care (01) ==
LOC: HO.LAB 08:13
PROVIDERS: PCP Internal Medicine; Visit Provider Internal Medicine
DX: E78.5 Hyperlipidemia, unspecified (principal); R79.89 Other specified abnormal findings of blood chemistry; R80.9 Proteinuria, unspecified; Z11.3 Encounter for screening for infections with a predominantly sexual mode of transmission; E55.9 Vitamin D deficiency, unspecified; E11.9 Type 2 diabetes mellitus without complications; Z20.2 Contact with and (suspected) exposure to infections with a predominantly sexual mode of transmission
CPT/HCPCS: 80053; 80061; 82043; 82306; 82570; 86695; 86696; 86704; 86706; 86709; 86780; 86803; 87340; 87491; 87591